=== PATIENT | female | born 1965 | race Caucasian/White ===

== ENCOUNTER 2021-08-23 11:31 | Day surgery (SDC) | payer OTHER ==
[2021-08-19 16:11] LABS: Absolute Lymphocytes (CBC) 1.3 K/uL (0.7-4.9); Basophils % 1.2 % (0-1.3); Hematocrit 39.5 % (36.0-45.0); Lymphocytes % 25.8 % (15.3-44.8); MPV 7.5 fL (7.6-11.3); RBC Red Blood Cell Count 4.23 M/uL (3.86-4.86)
[2021-08-19 16:17] LABS: Protime INR 1.05
[2021-08-19 16:24] LABS: Potassium 3.6 mmol/L (3.5-5.1)
--- NOTE | 2021-08-19 16:40 | RAD REPORT ---
EXAM DESCRIPTION: Mic Dubose And Gabo (2 Views)08/19/2021 4:24 pm CLINICAL HISTORY: Cough COMPARISON: 2019 FINDINGS: Mild prominence of the right suprahilar region without obvious change from the prior CAT scan Otherwise lungs appear clear of acute infiltrate. Heart is normal size
--- NOTE | 2021-08-20 10:42 | EKG ---
Test Date: 2021-08-19 Test Time: 14:42:30 Ingot Stripper: VIKTORIA MEASUREMENT RESULTS: Intervals: Rate: 91 [place]: 148 QRSD: 76 QT: 374 QTc: 460 [place]: P: 34 [place]: 148 QRS: 93 T: 64 INTERPRETIVE STATEMENTS: Normal sinus rhythm Rightward axis Low voltage QRS Borderline ECG Compared to ECG 06/01/2015 15:46:19 Right-axis deviation now present Myocardial infarct finding no longer present Electronically Signed On 08-20-21 10:39:55 CDT by Kirit Riggins
[2021-08-23] MEDS ORDERED: HEPA 1000U/500MLS 2,000 UNIT/1,000 ML BAG IV ONE (13:15)
[2021-08-23] MEDS ORDERED: MIDAZOLAM HCL 2 MG/2 ML INJ ONE (13:15)
[2021-08-23] MEDS ORDERED: FENTANYL CITR 100 MCG/2 ML ONE (13:16)
[2021-08-23] MEDS ORDERED: VERAPAMIL HCL 10 MG/4 ML VIAL IV ONE (13:16)
[2021-08-23] MEDS ORDERED: ATROPINE SULF 1 MG/10 ML SYR IV ONE (13:16)
[2021-08-23] MEDS ORDERED: HEPARIN 5000 UNIT/ML 1 ML VIAL ONE (13:16)
[2021-08-23] MEDS ORDERED: HEPA 1000U/500MLS 1,000 UNIT/500 ML BAG IV ONE ×2 (14:00→14:36)
[2021-08-23] MEDS ORDERED: NA CHLORIDE 0.9% 0 ML IV ONE (14:01)
--- NOTE | 2021-08-23 15:35 | OP ---
Date of Procedure: 08/23/2021 Surgeon: GOLDIE MURPHY Procedures Performed: 1.Selective coronary angiogram. 2.Left heart catheterization. 3.Right heart catheterization. 4.IVUS of left main and proximal LAD. Indication: Severe dyspnea on exertion and unstable angina equivalent. Access: Right radial artery 6-Montenegrin closed with TR band. Then, right IJ 7-Montenegrin closed with manua l pressure. Complications: None. Bleeding: Less than 10 mL. Anesthesia: Total time of sedation was 50 minutes. Description Of Procedure: After risks, benefits, and alternatives were explained, the patient to the procedure and signed informed consent. The patient was brought to the cardiac catheterization labor atory, prepped and draped in the usual sterile fashion. Then, we accessed the right radial artery us ing pediatric micropuncture kit and placed a 6-Montenegrin Slender sheath and then I obtained a right IJ a ccess using ultrasound guidance and micropuncture kit and placed a 7-Montenegrin sheath, and then we did t he right heart catheterization by passing a 7-Montenegrin passing a balloon-tipped Rembrandt-Stephani into the righ t atrium, recorded waveform and pressure and then RV waveform pressure recorded and then PA waveform pressure recorded and then wedge waveform pressure was recorded. Then, we obtained a thermodilution and cardiac output and then removed the Rembrandt and took a 5-Montenegrin Clayhole 4.0 catheter in the aortic emory t, engaged the left main and right coronary artery, took standard views and then gave systemic hepari n to assure ACT level above 250 and then exchanged the Clayhole catheter for left 3.5 6-Montenegrin guide int o the aortic root, engaged left main and used the side holes guide and took a short Run-Through wire into the LAD and took IVUS catheter to the left main and the LAD, and then removed the IVUS catheter and the wire, and took a final angiogram and then removed the guide and the sheath, and placed TR ban d with good hemostasis and placed the right IJ sheath with manual pressure and obtained good hemostas is. Findings: 1.Left main is very short with severe distal disease. The luminal area by IVUS is 4.1 sq mm. 2.LAD; severe proximal disease, 80% diffuse, noncalcified per IVUS. Luminal area is less than 4 and then the LAD is a small to moderate sized vessel with luminal irregularities throughout. 3.The left circumflex has ostial 99% stenosis and then mid 80% stenosis and then OM1 branch has prox imal 80% stenosis. 4.RCA; moderate size and has diffuse luminal irregularities. 5.LVEDP measured at 15 mmHg and the RA pressure was 15. RV pressure was 61/13 with mean of 21. PA pressure was 56/28 with a mean of 42. Pulmonary wedge pressure measured at 31. Cardiac output was 5 .7 L/minute. Conclusion: 1.Severe multivessel coronary artery disease including left main. 2.Elevated filling pressure. 3.Severe pulmonary hypertension, venous. Plan: Transfer for CABG evaluation. SR/MODL Voice ID: [id number] Report ID: [id number]
[2021-08-23 17:38] VITALS: TEMP 98.1
[2021-08-23 18:28] VITALS: BP 159/83; O2SAT 97
== END 2021-08-23 18:36 | disposition short-term general hospital (02) ==
LOC: CCL 11:31
PROVIDERS: ATTEND Internal Medicine
DX: I25.110 Atherosclerotic heart disease of native coronary artery with unstable angina pectoris (principal); I27.20 Pulmonary hypertension, unspecified; I11.0 Hypertensive heart disease with heart failure; I50.9 Heart failure, unspecified; E78.5 Hyperlipidemia, unspecified; E10.9 Type 1 diabetes mellitus without complications; Z79.4 Long term (current) use of insulin; Z20.822 Contact with and (suspected) exposure to COVID-19
CPT/HCPCS: 93005; 85025; 80048; 36415; 85610; 82947 ×3; 85347; 85730; 71046; 92978; 93460; U0003; C1893; J1644 ×4; J3010; J2370; J7060; J2250

== ENCOUNTER 2023-07-10 17:56 | Emergency (ER) | payer BC ==
--- OUTSIDE RECORDS SUMMARY | 2023-07-10 18:03 | XMS REPORT | Continuity of Care Document ---
:1965 Author Organization [facility] t Address [address] [place] [address] Care Team Providers Name Role Phone JOSE ANGEL LOPEZ Primary Care Physician Unavailable Jose Angel Lopez Attending Clinician Unavailable NORMAN LINCOLN Attending Clinician Unavailable WANDY POTTS Attending Clinician Unavailable Wandy Potts PA-C Attending Clinician Unknown, Attending Attending Clinician Unavailable MACY VALENTIN Attending Clinician Unavailable Macy Garber Attending Clinician Anai Baird MD Attending Clinician CALLIE COHEN Attending Clinician Unavailable Callie Barclay Attending Clinician Diane Schaeffer RN Attending Clinician Unavailable ANAI BAIRD Attending Clinician Unavailable SARMAD LINTON Attending Clinician Unavailable Sarmad Velasquez Attending Clinician Doctor Unassigned, [place] Attending Clinician Unavailable Only, Ang Db Test Attending Clinician Unavailable BRENDEN PORTILLO Attending Clinician Unavailable SONALI COOK Attending Clinician Unavailable NORMAN LINCOLN Admitting Clinician Unavailable AMANDA MARTIN Admitting Clinician Unavailable Payers Payer Name Policy Type Policy Number Effective Date Expiration Date Brooks jones AETNA SELECT [id number] 2020 [place] ACCESS 00:00:00 [place] [place] [id number] 2021 00:00:00 Blue Cross 6 [id number] [facility] Blue [facility] Blue Cross 6 [id number] [facility] t Blue [facility] AETNA 53 [id number] 2006 [facility]00 [facility] AETNA 53 [id number] 2006 [facility] 00[facility]00 [facility] AETNA 53 [id number] 2006 [facility]00 [facility] AETNA 53 [id number] [facility] AETNA C1 [id number] [facility] Problems Condition Condition Condition Status Onset Resolution Last Treating Co mments Source Name Details Category Date Date Treatment Clinician Date CAD CAD Disease Active 2020-[address] ([facility]onary (coronary 0-04 Luke s artery artery 00:00: Medical disease) disease) 00 Center Cellulitis Cellulitis Disease Active U nivers and and 6-24 ity of abscess [place] leg, leg, 00 Medical except except Branch foot foot Back pain Back pain Disease Active Uni vers 8-14 ity of 00:00: [place] 00 Medical Branch Hip joint Hip joint Disease Active Uni vers pain pain 8-14 ity of 00:00: [place] [address] Medical Branch 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 disorder Medical without Center prior episode [id number] Hyperlipid Problem Com mon emia, Spirit unspecifie - [facility] d [facility] hyperlipid [facility] emia type Medical Center [id number] Insulin Problem Commo n pump Spirit status - CHI [facility] Essential Essential Problem Com mon hypertensi (primary) Spi rit on hypertensi - CHI on [facility] [id number] retirement Problem Com mon (current) Spirit use of - CHI insulin [facility] [id number] Type 1 Problem Common diabetes Spirit mellitus - CHI with diabetic [facility] chronic Medical kidney Center disease [id number] Uncontroll Problem Co mmon ed type 1 Spirit diabetes - CHI mellitus with [facility] hyperglyce Medica l [facility] [id number] Seasonal Problem Commo n allergic Spirit rhinitis - CHI due to [facility] [id number] CHAN Problem Common (dyspnea Spirit on - CHI exertion) [facility] [id number] [place] Problem Common (obstructi Spirit ve sleep - CHI apnea) [facility] Retinopath Retinopath Disease Active U nivers y y ity [facility] Allergies, Adverse Reactions, Alerts Allergy Allergy Status Severity Reaction(s) Onset Inactive Treating Comm ents Source Name Type Date Date Clinician DIPHENHY Allergy Active Other [facility] DRAMINE 9-14 [facility] Center LISINOPR Allergy Active Other [facility] [place] 9[facility]14 [facility] Center Diphenhy Drug Active Other (See [facility] dramine Allergy Comments) 9-14 [facility] Medical 00 Center Lisinopr Drug Active Other (See [facility] il Allergy Comments) 9-14 [facility] 00:[facility]: Medical 00 Center NO KNOWN Drug Active Univers ALLERGIE Class ity of S [facility] diphenhy diphenhy Active Unknown Commo n dramine dramine Spirit - CHI [facility] Social History Social Habit Start Date Stop Date Quantity Comments Source Gender identity Universit y of [facility] Sexual orientation Univer sity [facility] History SDOH [facility] kes Alcohol Std Drinks Medica [facility] History SDOH [facility] Alcohol Binge Medical Cora ter Exposure to 2023-01-07 2023-01-17 Not sure University of SARS-CoV-2 (event) 00:00:00 11:32:00 [facility] History of Social 2023-01-17 2023-01-17 Univers ity of function 00:00:00 00:00:00 [facility] Alcohol intake 2021-08-24 2021-08-24 Ex-drinker TWAN Santos es 00:00:00 00:00:00 (finding) [facility] Tobacco use and 2021-08-23 2021-08-23 Smokeless TWAN Thompson kes exposure 00:00:00 00:00:00 tobacco non-user [facility] History SDOH 2021-08-23 2021-08-[address] [place] Alcohol Frequency 00:00:00 00:00:00 [facility] History of tobacco 1989-05-19 Cigarette Smoker University of use 00:00:00 [facility] Sex [birth year] TWAN Fernandze 00:00:00 00:00:00 [facility] Smoking Status Start Date Stop Date Source Ex-smoker 2022-12-18 00:00:00 2022-12-18 00:00:00 Universi ty [facility] Never Smoker [facility] Medications Ordered Filled Start Stop Current Ordering Indication Dosage Frequency Signature Comments Components Source Medication Medication Date Date Medication? Clinician (SIG) Name Name lucghada Yes [id number] 4[drp] Place 4 Univers in-dexameth 7 [id number] Drops in ity of asone 00:00: left ear [place] 0.3-0.1 % 00 in the Medical otic drops morning Branch and 4 Drops in the evening. dexamethaso 2022- No [id number] 10mg U nivers ne 5-30 05-30 ity of (DECADRON) 16:15: 16:20 [place] injection 00 :00 Medical 10 mg Branch diphenhydrA 2022- No [id number] 25mg U nivers MINE 5-30 05-30 ity of (BENADRYL) 16:15: 16:16 [place] capsule 25 00 :09 Medical mg Branch dexamethaso 2022- No [id number] 10mg 10 mg, Univers ne 5-30 05-30 Intramuscu ity of (DECADRON) 16:15: 16:20 lar, ONCE, [place] injection 00 :00 1 dose, On Medi edilberto 10 mg Tue Branch 04/18/23 at 1115, Routine Venlafaxine Yes 1{tbl} Take 1 Un edita 225 mg TR24 5-30 tablet by ity of 10:54: mouth [place] 14 daily. Medical Branch insulin Yes inject Univers lispro 5-30 under the ity of protamine-i 10:54: skin. [place] nsulin 14 Medical lispro 100 Branch unit/mL (50-50) injection Venlafaxine Yes 1{tbl} Take 1 Un edita 225 mg TR24 5-30 tablet by ity of 10:54: mouth [place] 14 daily. Medical Branch insulin Yes inject Univers lispro 5-30 under the ity of protamine-i 10:54: skin. [place] nsulin 14 Medical lispro 100 Branch unit/mL (50-50) injection ofloxacin 2022- Yes [id number] 5[drp] Place 5 Univers 0.3 % otic 5-30 06-07 Drops in ity of drops 00:00: 04:59 left ear [place] 00 :00 in the Medical morning Branch and 5 Drops in the evening. Do all this for 7 days. cephALEXin 2022- Yes [id number] 500mg Take 1 Univers 500 mg 5-30 06-05 capsule by ity of capsule 00:00: 04:59 mouth 4 [place] 00 :00 (four) Medical times Branch daily for 5 days. amoxicillin 2022- No [id number] 1{tbl} Take 1 Univers -clavulanat 2-28 03-11 tablet by it y of e 00:00: 05:59 mouth in [place] (AUGMENTIN) 00 :00 the Medical 875-125 mg morning Branch per tablet and 1 tablet in the evening. Do all this for 10 days. amoxicillin 2022- No [id number] 1{tbl} Take 1 Univers -clavulanat 2-28 03-11 tablet by it y of e 00:00: 05:59 mouth in [place] (AUGMENTIN) 00 :00 the Medical 875-125 mg morning Branch per tablet and 1 tablet in the evening. Do all this for 10 days. Venlafaxine Yes 1{tbl} Take 1 Un edita 225 mg TR24 1-29 tablet by ity of 13:05: mouth [place] 12 daily. Medical Branch insulin 2023-0 Yes inject Univers lispro 1-29 under the ity of protamine-i 13:05: skin. [place] nsulin 12 Medical lispro 100 Branch unit/mL (50-50) injection Venlafaxine 0 Yes 1{tbl} Take 1 Un edita 225 mg TR24 1-29 tablet by ity of 13:05: mouth [place] 12 daily. Medical Branch insulin Yes inject Univers lispro 1-29 under the ity of protamine-i 13:05: skin. [place] nsulin 12 Medical lispro 100 Branch unit/mL (50-50) injection Venlafaxine 0 Yes 1{tbl} Take 1 Un edita 225 mg TR24 1-29 tablet by ity of 13:05: mouth [place] 12 daily. [facility] Branch insulin Yes inject Univers lispro 1-29 under the ity of protamine-i 13:05: skin. [facility] 12 Medical lispro 100 Branch unit/mL (50-50) injection Venlafaxine Yes 1{tbl} Take 1 Un edita 225 mg TR24 1-29 tablet by ity of 13:05: mouth [place] 12 daily. [facility] Branch insulin Yes inject Univers lispro 1-29 under the ity of protamine-i [facility]:05: [facility] Branch unit/mL (50-50) injection Venlafaxine Yes 1{tbl} Take 1 Un edita 225 mg TR24 1-29 tablet by ity of 13:05: mouth [place] 12 daily. [facility] Branch insulin Yes inject Univers lispro 1-29 under the ity of protamine-i 13:05: [facility]. [facility] [place] [facility] lispro 100 Branch unit/mL (50-50) injection Venlafaxine 0 Yes 1{tbl} Take 1 Un edita 225 mg TR24 1-29 tablet by ity of 13:05: mouth [place] 12 daily. Medical Branch insulin 0 Yes inject Univers lispro 1-29 under the ity of protamine-i 13:05: [facility]. [facility] [place] [facility] lispro 100 Branch unit/mL (50-50) injection Venlafaxine 2022-0 Yes 1{tbl} Take 1 Un edita 225 mg TR24 1-29 tablet by ity of 13:05: mouth [place] 12 daily. Medical Branch insulin 2022-0 Yes inject Univers lispro 1-29 under the ity of protamine-i 13:05: skin. [place] nsulin 12 Medical lispro 100 Branch unit/mL (50-50) injection benzonatate 2022-0 Yes [id number] 200mg Take 2 Univers 100 mg 1-29 capsules ity of capsule 00:00: by mouth [place] 00 every 8 Medical (eight) Branch hours as needed for Cough. cetirizine 2022-0 Yes [id number] 10mg Take 1 U nivers (ZYRTEC) 10 1-29 tablet by ity of mg tablet 00:00: [place] 00 the Medical morning. Branch benzonatate 2022-0 Yes [id number] 200mg Take 2 Univers 100 mg 1-29 capsules ity of capsule 00:00: by mouth [place] 00 every 8 Medical (eight) Branch hours as needed for Cough. cetirizine 2022-0 Yes [id number] 10mg Take 1 U nivers (ZYRTEC) 10 1-29 tablet by ity of mg tablet 00:00: [place] 00 the Medical morning. Branch benzonatate 2022-0 Yes [id number] 200mg Take 2 Univers 100 mg 1-29 capsules ity of capsule 00:00: by mouth [place] 00 every 8 Medical (eight) Branch hours as needed for Cough. cetirizine 2022-0 Yes [id number] 10mg Take 1 U nivers (ZYRTEC) 10 1-29 tablet by ity of mg tablet 00:00: [place] 00 the Medical morning. Branch benzonatate 2022-0 Yes [id number] 200mg Take 2 Univers 100 mg 1-29 capsules ity of capsule 00:00: by mouth [place] 00 every 8 Medical (eight) Branch hours as needed for Cough. cetirizine 3-0 Yes [id number] 10mg Take 1 U nivers (ZYRTEC) 10 1-29 tablet by ity of mg tablet 00:00: [place] 00 the Medical morning. Branch benzonatate 3-0 Yes [id number] 200mg Take 2 Univers 100 mg 1-29 capsules ity of capsule 00:00: by mouth [place] 00 every 8 Medical (eight) Branch hours as needed for Cough. cetirizine 2023-0 Yes [id number] 10mg Take 1 U nivers (ZYRTEC) 10 1-29 tablet by ity of mg tablet 00:00: [place] 00 the Medical morning. Branch benzonatate 2023-0 Yes [id number] 200mg Take 2 Univers 100 mg 1-29 capsules ity of capsule 00:00: by mouth [place] 00 every 8 Medical (eight) Branch hours as needed for Cough. cetirizine 2023-0 Yes [id number] 10mg Take 1 U nivers (ZYRTEC) 10 1-29 tablet by ity of mg tablet 00:00: [place] 00 the Medical morning. Branch benzonatate 2023-0 Yes [id number] 200mg Take 2 Univers 100 mg 1-29 capsules ity of capsule 00:00: by mouth [place] 00 every 8 Medical (eight) Branch hours as needed for Cough. cetirizine 3-0 Yes [id number] 10mg Take 1 U nivers (ZYRTEC) 10 1-29 tablet by ity of mg tablet 00:00: [place] 00 the Medical morning. Branch benzonatate 3-0 Yes [id number] 200mg Take 2 Univers 100 mg 1-29 capsules ity of capsule 00:00: by mouth [place] 00 every 8 Medical (eight) Branch hours as needed for Cough. cetirizine 3-0 Yes [id number] 10mg Take 1 U nivers (ZYRTEC) 10 1-29 tablet by ity of mg tablet 00:00: [place] 00 the Medical morning. Branch benzonatate 2023-0 Yes [id number] 200mg Take 2 Univers 100 mg 1-29 capsules ity of capsule 00:00: by mouth [place] 00 every 8 Medical (eight) Branch hours as needed for Cough. cetirizine 2023-0 Yes [id number] 10mg Take 1 U nivers (ZYRTEC) 10 1-29 tablet by ity of mg tablet 00:00: [place] 00 the Medical morning. Branch gabapentin 2023-0 Yes 100mg Take 100 Un edita 100 mg 1-23 mg by ity of capsule 00:00: mouth in [place] 00 the Medical morning Branch and 100 mg in the evening. aspirin 81 2023-0 Yes 81mg Take 81 mg U nivers mg EC 1-23 by mouth ity of tablet 00:00: in the [place] 00 morning. Medical Branch gabapentin 2023-0 Yes 100mg Take 100 Un edita 100 mg 1-23 mg by ity of capsule 00:00: mouth in [place] 00 the Medical morning Branch and 100 mg in the evening. aspirin 81 2023-0 Yes 81mg Take 81 mg U nivers mg EC 1-23 by mouth ity of tablet 00:00: in the [place] 00 morning. Medical Branch gabapentin 2023-0 Yes 100mg Take 100 Un edita 100 mg 1-23 mg by ity of capsule 00:00: mouth in [place] 00 the Medical morning Branch and 100 mg in the evening. aspirin 81 2023-0 Yes 81mg Take 81 mg U nivers mg EC 1-23 by mouth ity of tablet 00:00: in the [place] [address] morning. Medical Branch gabapentin 2023-0 Yes 100mg Take 100 Un edita 100 mg 1-23 mg by ity of capsule 00:00: mouth in [place] 00 the Medical morning Branch and 100 mg in the evening. aspirin 81 2023-0 Yes 81mg Take 81 mg U nivers mg EC 1-23 by mouth ity of tablet 00:00: in the [place] [address] morning. Medical Branch gabapentin 2023-0 Yes 100mg Take 100 Un edita 100 mg 1-23 mg by ity of capsule 00:00: mouth in [place] 00 the Medical morning Branch and 100 mg in the evening. aspirin 81 2023-0 Yes 81mg Take 81 mg U nivers mg EC 1-23 by mouth ity of tablet 00:00: in the [place] [address] morning. Medical Branch gabapentin 2023-0 Yes 100mg Take 100 Un edita 100 mg 1-23 mg by ity of capsule 00:00: mouth in [place] 00 the Medical morning Branch and 100 mg in the evening. aspirin 81 2023-0 Yes 81mg Take 81 mg U nivers mg EC 1-23 by mouth ity of tablet 00:00: in the [place] [address] morning. Medical Branch gabapentin 2023-0 Yes 100mg Take 100 Un edita 100 mg 1-23 mg by ity of capsule 00:00: mouth in [place] 00 the Medical morning Branch and 100 mg in the evening. aspirin 81 2023-0 Yes 81mg Take 81 mg U nivers mg EC 1-23 by mouth ity of tablet 00:00: in the [place] 00 morning. Medical Branch gabapentin 2022-0 Yes 100mg Take 100 Un edita 100 mg 1-23 mg by ity of capsule 00:00: mouth in [place] 00 the Medical morning Branch and 100 mg in the evening. aspirin 81 2022-0 Yes 81mg Take 1 Unive rs mg EC 1-23 tablet by ity of tablet 00:00: mouth in [place] 00 the Medical morning. Branch gabapentin 2022-0 Yes 100mg Take 100 Un edita 100 mg 1-23 mg by ity of capsule 00:00: mouth in [place] 00 the Medical morning Branch and 100 mg in the evening. aspirin 81 2022-0 Yes 81mg Take 1 Unive rs mg EC 1-23 tablet by ity of tablet 00:00: mouth in [place] [address] the Medical morning. Branch montelukast 0 Yes Take by Uni vers sodium 9-07 mouth. ity of (SINGULAIR 13:58: [place] ORAL) Medical Branch ticagrelor Yes Take by Univ ers (BRILINTA 9-07 mouth. ity of ORAL) 13:58: [place] [address] Medical Branch furosemide 0 Yes Take by Univ ers (LASIX 9-07 mouth. ity of ORAL) 13:58: [place] [address] Medical Branch carvedilol Yes Take by Univ ers (COREG 9-07 mouth. ity of ORAL) 13:58: [place] [address] Medical Branch montelukast Yes Take by Uni vers sodium 9-07 mouth. ity of (SINGULAIR 13:58: [place] ORAL) Medical Branch ticagrelor Yes Take by Univ ers (BRILINTA 9-07 mouth. ity of ORAL) 13:58: [place] [address] Medical Branch furosemide 0 Yes Take by Univ ers (LASIX 9-07 mouth. ity of ORAL) 13:58: [place] [address] Medical Branch carvedilol 0 Yes Take by Univ ers (COREG 9-07 mouth. ity of ORAL) 13:58: [place] [address] Medical Branch montelukast 0 Yes Take by Un edita sodium 9-07 mouth. ity of (SINGULAIR 13:58: [place] ORAL) Medical Branch ticagrelor 0 Yes Take by Univ ers (BRILINTA 9-07 mouth. ity of ORAL) 13:58: [address] Branch furosemide 0 Yes Take by Univ ers (LASIX 9-07 mouth. ity of ORAL) 13:58: [address] Branch carvedilol 0 Yes Take by Univ ers (COREG 9-07 mouth. ity of ORAL) 13:58: [address] montelukast 0 Yes Take by Uni vers sodium 9-07 mouth. ity of (SINGULAIR 13:58: [place] ORAL) [address] [place] [address] Branch ticagrelor 0 Yes Take by Univ ers (BRILINTA 9-07 mouth. ity of ORAL) 13:58: [address] Branch furosemide 0 Yes Take by Univ ers (LASIX 9-07 mouth. ity of ORAL) 13:58: [address] carvedilol Yes Take by Univ ers (COREG 9-07 mouth. ity of ORAL) 13:58: [address] montelukast 0 Yes Take by Uni vers sodium 9-07 mouth. ity of (SINGULAIR 13:58: [place] ORAL) [address] [place] [address] Branch ticagrelor Yes Take by Univ ers (BRILINTA 9-07 mouth. ity of ORAL) 13:58: [address] furosemide 0 Yes Take by Univ ers (LASIX 9-07 mouth. ity of ORAL) 13:58: [address] carvedilol Yes Take by Univ ers (COREG 9-07 mouth. ity of ORAL) 13:58: [address] montelukast 0 Yes Take by Uni vers sodium 9-07 mouth. ity of (SINGULAIR 13:58: [place] ORAL) [address] [place] [address] Branch ticagrelor 0 Yes Take by Univ ers (BRILINTA 9-07 mouth. ity of ORAL) 13:58: [address] furosemide 0 Yes Take by Univ ers (LASIX 9-07 mouth. ity of ORAL) 13:58: [address] carvedilol 0 Yes Take by Univ ers (COREG 9-07 mouth. ity of ORAL) 13:58: [address] montelukast 0 Yes Take by Uni vers sodium 9-07 mouth. ity of (SINGULAIR 13:58: [place] ORAL) Medical Branch ticagrelor 0 Yes Take by Univ ers (BRILINTA 9-07 mouth. ity of ORAL) 13:58: [place] [address] Medical Branch furosemide 0 Yes Take by Univ ers (LASIX 9-07 mouth. ity of ORAL) 13:58: [address] Branch carvedilol 0 Yes Take by Univ ers (COREG 9-07 mouth. ity of ORAL) 13:58: [address] Branch montelukast 0 Yes Take by Uni vers sodium 9-07 mouth. ity of (SINGULAIR 13:58: [place] ORAL) Medical Branch ticagrelor 0 Yes Take by Univ ers (BRILINTA 9-07 mouth. ity of ORAL) 13:58: [address] Branch furosemide 0 Yes Take by Univ ers (LASIX 9-07 mouth. ity of ORAL) 13:58: [address] Branch carvedilol 0 Yes Take by Univ ers (COREG 9-07 mouth. ity of ORAL) 13:58: [address] Branch montelukast 0 Yes Take by Uni vers sodium 9-07 mouth. ity of (SINGULAIR 13:58: [place] ORAL) Medical Branch ticagrelor 0 Yes Take by Univ ers (BRILINTA 9-07 mouth. ity of ORAL) 13:58: [address] Branch furosemide 0 Yes Take by Univ ers (LASIX 9-07 mouth. ity of ORAL) 13:58: [place] [address] Medical Branch carvedilol 0 Yes Take by Univ ers (COREG 9-07 mouth. ity of ORAL) 13:58: [address] Branch montelukast 0 Yes Take by Uni vers sodium 9-07 mouth. ity of (SINGULAIR 13:58: [place] ORAL) Medical Branch ticagrelor 0 Yes Take by Univ ers (BRILINTA 9-07 mouth. ity of ORAL) 13:58: [address] Branch furosemide 0 Yes Take by Univ ers (LASIX 9-07 mouth. ity of ORAL) 13:58: [address] Branch carvedilol 2022-[address] [facility] ers (COREG 07-27 mouth. ity of ORAL) 13:58: [place] 45 Medical Branch Nitrofurant 2021- No [id number] 100mg Take 1 Univers oin&Nit. 07-27- capsule by ity of Macrocryst 00:00: 04:59 [place] (MACROBID) 00 :00 the Medical 100 mg morning Branch capsule and 1 capsule in the evening. Take with meals. Do all this for 5 days. Glucagon Glucagon 2020-11- No Glucagon Emergency 1 Emergency 1 2-15 06-13 Emergency MG MG 00:00: 00:00 1 MG 00 :00 Glucagon Glucagon 2020-11- No Glucagon Emergency 1 Emergency 1 2-15 06-13 Emergency MG MG 00:00: 00:00 1 MG 00 :00 Glucagon Glucagon 2020-11- No Glucagon Emergency 1 Emergency 1 2-15 06-13 Emergency MG MG 00:00: 00:00 1 MG 00 :00 nitroglycer 2020-11 Yes TAKE [address] in 1-30 TABLET [facility] (NITROSTAT) 00:00: UDER THE Ia dical 0.4 MG SL 00 TONGUE Center tablet EVERY 5 MIN NEEDED FOR CHEST PAIN NO MORE THAN 3 DOSES IN 15MIN CALL 911 IF PAIN UNRELEVED 5 MIN AFTER 1ST DOSE. losartan 2020-11 Yes TAKE [address] (COZAAR) 25 1-10 TABLET BY Jose Luis es MG tablet 00:00: MOUTH Medical 00 EVERY DAY Center carvediloL 2020-11 Yes 12.5mg Take 12.[address] (COREG) 0-07 mg by [facility] 12.5 MG 09:56: mouth 2 Medical tablet 15 (two) Center times daily with breakfast and dinner. insulin 2020-[address] [facility] lispro 0-07 subcutaneo [facility] protamine-i 09:56: usly Medica l nsulin 15 continuous Center lispro . (HumaLOG 50-50) 100 unit/mL (50-50) InPn furosemide 2020-11 Yes 40mg QD Take [address] (LASIX) 40 0-07 by mouth [facility] MG tablet 09:56: daily. Medica l 15 Center venlafaxine 2020-11 Yes 225mg QD Take [address] (EFFEXOR-XR 0-07 mg by [facility] ) 150 MG 24 09:56: mouth Medic al hr capsule 15 daily. [place] abemaciclib 2020- Yes 100mg QD Take [address] (Verzenio) 0-07 mg by [facility] 100 mg Tab 09:56: mouth Medica l 15 daily. [place] Dexcom G6 Dexcom G6 2020-0 No Dexcom G6 Transmitter Transmitter 3-24 Transmitte - - 00:00: r - 00 Dexcom G6 Dexcom G6 2020-0 No Dexcom G6 Sensor - Sensor - 3-24 Sensor - 00:00: 00 Dexcom G6 Dexcom G6 2020-0 No Dexcom G6 Transmitter Transmitter 3-24 Transmitte - - 00:00: r - 00 Dexcom G6 Dexcom G6 2020-0 No Dexcom G6 Sensor - Sensor - 3-24 Sensor - 00:00: 00 Dexcom G6 Dexcom G6 2020-0 No Dexcom G6 Transmitter Transmitter 3-24 Transmitte - - 00:00: r - 00 Dexcom G6 Dexcom G6 2020-0 No Dexcom G6 Sensor - Sensor - 3-24 Sensor - 00:00: 00 Dexcom G6 Dexcom G6 2020-0 No Dexcom G6 Transmitter Transmitter 3-24 Transmitte - - 00:00: r - 00 Dexcom G6 Dexcom G6 2020-0 No Dexcom G6 Sensor - Sensor - 3-24 Sensor - 00:00: 00 Dexcom G6 Dexcom G6 2020-0 No Dexcom G6 Sensor - Sensor - 3-24 Sensor - 00:00: 00 Dexcom G6 Dexcom G6 2020-0 No Dexcom G6 Transmitter Transmitter 3-24 Transmitte - - 00:00: r - 00 Dexcom G6 Dexcom G6 2020-0 No Dexcom G6 Sensor - Sensor - 3-24 Sensor - 00:00: 00 Dexcom G6 Dexcom G6 2020-0 No Dexcom G6 Transmitter Transmitter 3-24 Transmitte - - 00:00: r - 00 Dexcom G6 Dexcom G6 2020-0 No Dexcom G6 Transmitter Transmitter 3-24 Transmitte - - 00:00: r - 00 Dexcom G6 Dexcom G6 2020-0 No Dexcom G6 Sensor - Sensor - 3-24 Sensor - 00:00: 00 Dexcom G6 Dexcom G6 2020-0 No Dexcom G6 Sensor - Sensor - 3-24 Sensor - 00:00: 00 Dexcom G6 Dexcom G6 2020-0 No Dexcom G6 Transmitter Transmitter 3-24 Transmitte - - 00:00: r - 00 Dexcom G6 Dexcom G6 2020-0 No Dexcom G6 Sensor - Sensor - 3-24 Sensor - 00:00: 00 Dexcom G6 Dexcom G6 2020-0 No Dexcom G6 Transmitter Transmitter 3-24 Transmitte - - 00:00: r - 00 Dexcom G6 Dexcom G6 2020-0 No Dexcom G6 Transmitter Transmitter 3-24 Transmitte - - 00:00: r - 00 Dexcom G6 Dexcom G6 2020-0 No Dexcom G6 Sensor - Sensor - 3-24 Sensor - 00:00: 00 Dexcom G6 Dexcom G6 2020-0 No Dexcom G6 Sensor - Sensor - 3-24 Sensor - 00:00: 00 Dexcom G6 Dexcom G6 2020-0 No Dexcom G6 Transmitter Transmitter 3-24 Transmitte - - 00:00: r - 00 Dexcom G6 Dexcom G6 2020-0 No Dexcom G6 Transmitter Transmitter 3-24 Transmitte - - 00:00: r - 00 Dexcom G6 Dexcom G6 2020-0 No Dexcom G6 Sensor - Sensor - 3-24 Sensor - 00:00: 00 Humalog Humalog 2020-0 Yes Jose Angel 110 units C ommon 3-03 [facility] 00:[facility]: - [facility] 00 [facility] Valsartan Valsartan 2020-0 Yes Jose Angel 1 tablet Common 12-12 [facility] 00:00: - [facility] 00 [facility] Valsartan Valsartan 2020-0 No 1{table QD Valsartan 80 MG 80 MG 1-23 t} 80 MG 00:00: 00 Valsartan Valsartan 2020-0 No 1{table QD Valsartan 80 MG 80 MG 1-23 t} 80 MG 00:00: 00 Valsartan Valsartan 2020-0 No 1{table QD Valsartan 80 MG 80 MG 1-23 t} 80 MG 00:00: 00 Valsartan Valsartan 2020-0 No 1{table QD Valsartan 80 MG 80 MG 1-23 t} 80 MG 00:00: 00 Valsartan Valsartan 2020-0 No 1{table QD Valsartan 80 MG 80 MG 1-23 t} 80 MG 00:00: 00 insulin 2015-0 Yes For use in [facility] ers lispro, 4-02 insulin ity of human, 00:00: pump, up [place] (HUMALOG) 00 to 100 Medical 100 unit/mL units Branch injection daily. insulin 2015-0 Yes For use in [facility] ers lispro, 4-02 insulin ity of human, 00:00: pump, up [place] (HUMALOG) 00 to 100 Medical 100 unit/mL units Branch injection daily. insulin 2015-0 Yes For use in [facility] ers lispro, 4- insulin ity of human, 00:00: pump, up [place] (HUMALOG) 00 to 100 Medical 100 unit/mL units Branch injection daily. insulin 2015-0 Yes For use in [facility] ers lispro, 4- insulin ity of human, 00:00: pump, up [place] (HUMALOG) 00 to 100 Medical 100 unit/mL units Branch injection daily. insulin 2014-0 Yes For use in [facility] ers lispro, 4- insulin ity of human, 00:00: pump, up [place] (HUMALOG) 00 to 100 Medical 100 unit/mL units Branch injection daily. insulin 2015-0 Yes For use in [facility] ers lispro, 4- insulin ity of human, 00:00: pump, up [place] (HUMALOG) 00 to 100 Medical 100 unit/mL units Branch injection daily. insulin 2015-0 Yes For use in [facility] ers lispro, 4- insulin ity of human, 00:00: pump, up [place] (HUMALOG) 00 to 100 Medical 100 unit/mL units Branch injection daily. insulin 2015-0 Yes For use in [facility] ers lispro, 4-02 insulin ity of human, 00:00: pump, up [place] (HUMALOG) 00 to 100 Medical 100 unit/mL units Branch injection daily. insulin 2015-0 Yes For use in [facility] ers lispro, 4-02 insulin ity of human, 00:00: pump, up [place] (HUMALOG) 00 to 100 Medical 100 unit/mL units Branch injection daily. insulin 2015-0 Yes For use in [facility] ers lispro, 4-02 insulin ity of human, 00:00: pump, up [place] (HUMALOG) 00 to 100 Medical 100 unit/mL units Branch injection daily. insulin 2015-0 Yes For use in [facility] ers lispro, 4-02 insulin ity of human, 00:00: pump, up [place] (HUMALOG) 00 to 100 Medical 100 unit/mL units Branch injection daily. insulin Yes For use in [facility] ers lispro, 4- insulin ity of human, 00:00: pump, up [place] (HUMALOG) 00 to 100 Medical 100 unit/mL units Branch injection daily. blood sugar 2013-11 Yes Qid Use as [facility] diagnostic 1-24 directed, ity of (ONE TOUCH 00:00: DX:250.51 [place] VERIO) 00 [facility] blood sugar 2013-11 Yes Qid Use as Univers diagnostic 1-24 directed, ity of (ONE TOUCH 00:00: DX:250.51 [place] VERIO) 00 [facility] blood sugar 2013-11 Yes Qid Use as [facility] diagnostic 1-24 directed, ity of (ONE TOUCH 00:00: DX:250.51 [place] VERIO) 00 [facility] blood sugar 2013-11 Yes Qid Use as Univers diagnostic 1-24 directed, ity of (ONE TOUCH 00:00: DX:250.51 [place] VERIO) 00 [facility] blood sugar 2013-11 Yes Qid Use as Univers diagnostic 1-24 directed, ity of (ONE TOUCH 00:00: DX:250.51 [place] VERIO) 00 [facility] blood sugar 2013-11 Yes Qid Use as Univers diagnostic 1-24 directed, ity of (ONE TOUCH 00:00: DX:250.51 [place] VERIO) 00 [facility] blood sugar 2013-11 Yes Qid Use as Univers diagnostic 1-24 directed, ity of (ONE TOUCH 00:00: DX:250.51 [place] VERIO) 00 [facility] blood sugar 2013-11 Yes Qid Use as Univers diagnostic 1-24 directed, ity of (ONE TOUCH 00:00: DX:250.51 [place] VERIO) 00 [facility] blood sugar 2013-11 Yes Qid Use as Univers diagnostic 1-24 directed, ity of (ONE TOUCH 00:00: DX:250.51 [place] VERIO) 00 [facility] blood sugar 2013-11 Yes Qid Use as Univers diagnostic 1-24 directed, ity of (ONE TOUCH 00:00: DX:250.51 [place] VERIO) 00 [facility] blood sugar 2013-11 Yes Qid Use as Univers diagnostic 1-24 directed, ity of (ONE TOUCH 00:00: DX:250.51 [place] VERIO) 00 Medical strip Branch blood sugar 2013- Yes Qid Use as Univers diagnostic 1-24 directed, ity of (ONE TOUCH 00:00: DX:250.51 [place] VERIO) 00 Medical strip Branch insulin 2014-0 Yes For use in Univ ers aspart 9-12 insulin ity of RAPID 00:00: pump, up [place] (NOVOLOG) 00 to 100 Medical 100 unit/mL units Branch injection daily. insulin 2014-0 Yes For use in Univ ers aspart 9-12 insulin ity of RAPID 00:00: pump, up [place] (NOVOLOG) 00 to 100 Medical 100 unit/mL units Branch injection daily. insulin 2014-0 Yes For use in Univ ers aspart 9-12 insulin ity of RAPID 00:00: pump, up [place] (NOVOLOG) 00 to 100 Medical 100 unit/mL units Branch injection daily. insulin 2014-0 Yes For use in Univ ers aspart 9-12 insulin ity of RAPID 00:00: pump, up [place] (NOVOLOG) 00 to 100 Medical 100 unit/mL units Branch injection daily. insulin 2014-0 Yes For use in Univ ers aspart 9-12 insulin ity of RAPID 00:00: pump, up [place] (NOVOLOG) 00 to 100 Medical 100 unit/mL units Branch injection daily. insulin 2014-0 Yes For use in Univ ers aspart 9-12 insulin ity of RAPID 00:00: pump, up [place] (NOVOLOG) 00 to 100 Medical 100 unit/mL units Branch injection daily. insulin 2014-0 Yes For use in Univ ers aspart 9-12 insulin ity of RAPID 00:00: pump, up [place] (NOVOLOG) 00 to 100 Medical 100 unit/mL units Branch injection daily. insulin 2014-0 Yes For use in Univ ers aspart 9-12 insulin ity of RAPID 00:00: pump, up [place] (NOVOLOG) 00 to 100 Medical 100 unit/mL units Branch injection daily. insulin 2014-0 Yes For use in Univ ers aspart 9-12 insulin ity of RAPID 00:00: pump, up [place] (NOVOLOG) 00 to 100 Medical 100 unit/mL units Branch injection daily. insulin 2014-0 Yes For use in Univ ers aspart 9-12 insulin ity of RAPID 00:00: pump, up [place] (NOVOLOG) 00 to 100 Medical 100 unit/mL units Branch injection daily. insulin 2014-0 Yes For use in Univ ers aspart 9-12 insulin ity of RAPID 00:00: pump, up [place] (NOVOLOG) 00 to 100 Medical 100 unit/mL units Branch injection daily. insulin 2014-0 Yes For use in Univ ers aspart 9-12 insulin ity of RAPID 00:00: pump, up [place] (NOVOLOG) 00 to 100 Medical 100 unit/mL units Branch injection daily. insulin 2014-0 Yes 5U inject 5 Univer s aspart 7-18 Units ity of RAPID 00:00: under the [place] (NOVOLOG) 00 skin 3 Medical 100 unit/mL (three) Branc h injection times daily before meals. insulin 2014-0 Yes 5U inject 5 Univer s aspart 7-18 Units ity of RAPID 00:00: under the [place] (NOVOLOG) 00 skin 3 Medical 100 unit/mL (three) Branc h injection times daily before meals. insulin 2014-0 Yes 5U inject 5 Univer s aspart 7-18 Units ity of RAPID 00:00: under the [place] (NOVOLOG) 00 skin 3 Medical 100 unit/mL (three) Branc h injection times daily before meals. insulin 2014-0 Yes 5U inject 5 Univer s aspart 7-18 Units ity of RAPID 00:00: under the [place] (NOVOLOG) 00 skin 3 Medical 100 unit/mL (three) Branc h injection times daily before meals. insulin 2014-0 Yes 5U inject 5 Univer s aspart 7-18 Units ity of RAPID 00:00: under the [place] (NOVOLOG) 00 skin 3 Medical 100 unit/mL (three) Branc h injection times daily before meals. insulin 2014-0 Yes 5U inject 5 Univer s aspart 7-18 Units ity of RAPID 00:00: under the [place] (NOVOLOG) 00 skin 3 Medical 100 unit/mL (three) Branc h injection times daily before meals. insulin 2014-0 Yes 5U inject 5 Univer s aspart 7-18 Units ity of RAPID 00:00: under the [place] (NOVOLOG) 00 skin 3 Medical 100 unit/mL (three) Branc h injection times daily before meals. insulin 2014-0 Yes 5U inject 5 Univer s aspart 7-18 Units ity of RAPID 00:00: under the [place] (NOVOLOG) 00 skin 3 Medical 100 unit/mL (three) Branc h injection times daily before meals. insulin 2013-0 Yes 5U inject 5 Univer s aspart 7-18 Units ity of RAPID 00:00: under the [place] (NOVOLOG) 00 skin 3 Medical 100 unit/mL (three) Branc h injection times daily before meals. insulin 2013-0 Yes 5U inject 5 Univer s aspart 7-18 Units ity of RAPID 00:00: under the [place] (NOVOLOG) 00 skin 3 Medical 100 unit/mL (three) Branc h injection times daily before meals. insulin 2013-0 Yes 5U inject 5 Univer s aspart 7-18 Units ity of RAPID 00:00: under the [place] (NOVOLOG) 00 skin 3 Medical 100 unit/mL (three) Branc h injection times daily before meals. insulin 2013-0 Yes 5U inject 5 Univer s aspart 7-18 Units ity of RAPID 00:00: under the [place] (NOVOLOG) 00 skin 3 Medical 100 unit/mL (three) Branc h injection times daily before meals. insulin 2013-0 Yes 20U inject 20 Unive rs glargine 6-23 Units ity of (LANTUS 00:00: under the [place] U-100) 100 00 skin at Medica l unit/mL bedtime. Branch injection insulin 2013-0 Yes 20U inject 20 Unive rs glargine 6-23 Units ity of (LANTUS 00:00: under the [place] U-100) 100 00 skin at Medica l unit/mL bedtime. Branch injection insulin 2013-0 Yes 20U inject 20 Unive rs glargine 6-23 Units ity of (LANTUS 00:00: under the [place] U-100) 100 00 skin at Medica l unit/mL bedtime. Branch injection insulin 2013-0 Yes 20U inject 20 Unive rs glargine 6-23 Units ity of (LANTUS 00:00: under the [place] U-100) 100 00 skin at Medica l unit/mL bedtime. Branch injection insulin 2013-0 Yes 20U inject 20 Unive rs glargine 6-23 Units ity of (LANTUS 00:00: under the [place] U-100) 100 00 skin at Medica l unit/mL bedtime. Branch injection insulin Yes 20U inject 20 Unive rs glargine 6-23 Units ity of (LANTUS 00:00: under the [place] U-100) 100 00 skin at Medica l unit/mL bedtime. Branch injection insulin Yes 20U inject 20 Unive rs glargine 6-23 Units ity of (LANTUS 00:00: under the [place] U-100) 100 00 skin at Medica l unit/mL bedtime. Branch injection insulin Yes 20U inject 20 Unive rs glargine 6-23 Units ity of (LANTUS 00:00: under the [place] U-100) 100 00 skin at Medica l unit/mL bedtime. Branch injection insulin Yes 20U inject 20 Unive rs glargine 6-23 Units ity of (LANTUS 00:00: under the [place] U-100) 100 00 skin at Medica l unit/mL bedtime. Branch injection insulin Yes 20U inject 20 Unive rs glargine 6-23 Units ity of (LANTUS 00:00: under the [place] U-100) 100 00 skin at Medica l unit/mL bedtime. Branch injection insulin Yes 20U inject 20 Unive rs glargine 6-23 Units ity of (LANTUS 00:00: under the [place] U-100) 100 00 skin at Medica l unit/mL bedtime. Branch injection insulin Yes 20U inject 20 Unive rs glargine 6-23 Units ity of (LANTUS 00:00: under the [place] U-100) 100 00 skin at Medica l unit/mL bedtime. Branch injection atorvastati Yes 20mg Take 1 Tab Univers n (LIPITOR) 4-25 by mouth ity of 20 mg 00:00: at [place] tablet 00 bedtime. Medical Start it Branch at every other day for a month, then increase to daily if it is tolerated. atorvastati Yes 20mg Take 1 Tab Univers n (LIPITOR) 4-25 by mouth ity of 20 mg 00:00: at [place] tablet 00 bedtime. Medical Start it Branch at every other day for a month, then increase to daily if it is tolerated. atorvastati Yes 20mg Take 1 Tab Univers n (LIPITOR) 4-25 by mouth ity of 20 mg 00:00: at [place] tablet 00 bedtime. Medical Start it Branch at every other day for a month, then increase to daily if it is tolerated. atorvastati Yes 20mg Take 1 Tab Univers n (LIPITOR) 4-25 by mouth ity of 20 mg 00:00: at [place] tablet 00 bedtime. Medical Start it Branch at every other day for a month, then increase to daily if it is tolerated. atorvastati Yes 20mg Take 1 Tab Univers n (LIPITOR) 4-25 by mouth ity of 20 mg 00:00: at [place] tablet 00 bedtime. Medical Start it Branch at every other day for a month, then increase to daily if it is tolerated. atorvastati Yes 20mg Take 1 Tab Univers n (LIPITOR) 4-25 by mouth ity of 20 mg 00:00: at [place] tablet 00 bedtime. Medical Start it Branch at every other day for a month, then increase to daily if it is tolerated. atorvastati Yes 20mg Take 1 Tab Univers n (LIPITOR) 4-25 by mouth ity of 20 mg 00:00: at [place] tablet 00 bedtime. Medical Start it Branch at every other day for a month, then increase to daily if it is tolerated. atorvastati Yes 20mg Take 1 Tab Univers n (LIPITOR) 4-25 by mouth ity of 20 mg 00:00: at [place] tablet 00 bedtime. Medical Start it Branch at every other day for a month, then increase to daily if it is tolerated. atorvastati Yes 20mg Take 1 Tab Univers n (LIPITOR) 4-25 by mouth ity of 20 mg 00:00: at [place] tablet 00 bedtime. Medical Start it Branch at every other day for a month, then increase to daily if it is tolerated. atorvastati Yes 20mg Take 1 Tab Univers n (LIPITOR) 4-25 by mouth ity of 20 mg 00:00: at [place] tablet 00 bedtime. Medical Start it Branch at every other day for a month, then increase to daily if it is tolerated. atorvastati Yes 20mg Take 1 Tab Univers n (LIPITOR) 4-25 by mouth ity of 20 mg 00:00: at [place] tablet 00 bedtime. Medical Start it Branch at every other day for a month, then increase to daily if it is tolerated. atorvastati 2014-0 Yes 20mg Take 1 Tab Univers n (LIPITOR) 4-25 by mouth ity of 20 mg 00:00: at [place] tablet 00 bedtime. Medical Start it Branch at every other day for a month, then increase to daily if it is tolerated. Blood-Gluco Yes Univer s se Meter 2-25 ity of (ONE TOUCH 00:00: [place] VERIO IQ) 00 Medical Kit Branch lancets Yes To be used Univ ers (ONE TOUCH 2-25 up to 6x ity o f DELICA) 33 00:00: daily [place] gauge Misc Medical Branch Blood-Gluco Yes Univer s se Meter 2-25 ity of (ONE TOUCH 00:00: [place] VERIO IQ) 00 Medical Kit Branch lancets Yes To be used Univ ers (ONE TOUCH 2-25 up to 6x ity o f DELICA) 33 00:00: daily [place] gauge Mis Medical Branch Blood-Gluco Yes Univer s se Meter 2-25 ity of (ONE TOUCH 00:00: [place] VERIO IQ) 00 Medical Kit Branch lancets Yes To be used Univ ers (ONE TOUCH 2-25 up to 6x ity o f DELICA) 33 00:00: daily [place] gauge Mis Medical Branch Blood-Gluco Yes Univer s se Meter 2-25 ity of (ONE TOUCH 00:00: [place] VERIO IQ) Medical Kit Branch Blood-Gluco Yes Univer s se Meter 2-25 ity of (ONE TOUCH 00:00: [place] VERIO IQ) 00 Medical Kit Branch lancets Yes To be used Univ ers (ONE TOUCH 2-25 up to 6x ity o f DELICA) 33 00:00: daily [place] gauge Misc Medical Branch lancets Yes To be used Univ ers (ONE TOUCH 2-25 up to 6x ity o f DELICA) 33 00:00: daily [place] gauge Misc Medical Branch Blood-Gluco Yes Univer s se Meter 2-25 ity of (ONE TOUCH 00:00: [place] VERIO IQ) 00 Medical Kit Branch lancets Yes To be used Univ ers (ONE TOUCH 2-25 up to 6x ity o f DELICA) 33 00:00: daily [place] gauge Mis Medical Branch Blood-Gluco Yes Univer s se Meter 2-25 ity of (ONE TOUCH 00:00: [place] VERIO IQ) Medical Kit Branch lancets Yes To be used Univ ers (ONE TOUCH 2-25 up to 6x ity o f DELICA) 33 00:00: daily [place] gauge Mis Medical Branch Blood-Gluco Yes Univer s se Meter 2-25 ity of (ONE TOUCH 00:00: [place] VERIO IQ) Medical Kit Branch lancets Yes To be used Univ ers (ONE TOUCH 2-25 up to 6x ity o f DELICA) 33 00:00: daily [place] gauge [facility] [place] [place] Medical Branch Blood-Gluco Yes Univer s se Meter 2-25 ity of (ONE TOUCH 00:00: [place] VERIO IQ) Medical Kit Branch Blood-Gluco Yes Univer s se Meter 2-25 ity of (ONE TOUCH 00:00: [place] VERIO IQ) 00 Medical Kit Branch lancets Yes To be used Univ ers (ONE TOUCH 2-25 up to 6x ity o f DELICA) 33 00:00: daily [place] gauge [facility] [place] [place] Medical Branch lancets Yes To be used Univ ers (ONE TOUCH 2-25 up to 6x ity o f DELICA) 33 00:00: daily [place] gauge [facility] [place] [place] Medical Branch Blood-Gluco Yes Univer s se Meter 2-25 ity of (ONE TOUCH 00:00: [place] VERIO IQ) Medical Kit Branch lancets Yes To be used Univ ers (ONE TOUCH 2-25 up to 6x ity o f DELICA) 33 00:00: daily [place] gauge Mis Medical Branch Blood-Gluco Yes Univer s se Meter 2-25 ity of (ONE TOUCH 00:00: [place] VERIO IQ) Medical Kit Branch lancets Yes To be used Univ ers (ONE TOUCH 2-25 up to 6x ity o f DELICA) 33 00:00: daily [place] gauge Misc 00 Medical Branch GLUCAGON 1 Yes use as Unive rs MG 8-14 directed ity of INJECTION 00:00: in case of [place] KIT 00 emergency Medical Branch GLUCAGON 1 Yes use as Unive rs MG 8-14 directed ity of INJECTION 00:00: in case of [place] KIT 00 emergency Medical Branch GLUCAGON 1 Yes use as Unive rs MG 8-14 directed ity of INJECTION 00:00: in case of [place] KIT 00 emergency Medical Branch GLUCAGON 1 Yes use as Unive rs MG 8-14 directed ity of INJECTION 00:00: in case of [place] KIT 00 emergency Medical Branch GLUCAGON 1 Yes use as Unive rs MG 8-14 directed ity of INJECTION 00:00: in case of [place] KIT 00 emergency Medical Branch GLUCAGON 1 Yes use as Unive rs MG 8-14 directed ity of INJECTION 00:00: in case of [place] KIT 00 emergency Medical Branch GLUCAGON 1 Yes use as Unive rs MG 8-14 directed ity of INJECTION 00:00: in case of [place] KIT 00 emergency Medical Branch GLUCAGON 1 Yes use as Unive rs MG 8-14 directed ity of INJECTION 00:00: in case of [place] KIT 00 emergency Medical Branch GLUCAGON 1 Yes use as Unive rs MG 8-14 directed ity of INJECTION 00:00: in case of [place] KIT 00 emergency Medical Branch GLUCAGON 1 Yes use as Unive rs MG 8-14 directed ity of INJECTION 00:00: in case of [place] KIT 00 emergency Medical Branch GLUCAGON 1 Yes use as Unive rs MG 8-14 directed ity of INJECTION 00:00: in case of [place] KIT 00 emergency Medical Branch GLUCAGON 1 Yes use as Unive rs MG 8-14 directed ity of INJECTION 00:00: in [place] of [place] KIT 00 emergency Medical Branch Fluticasone Fluticasone Yes Jose Angel 1 spray in Common Propionate Propionate [place] each Sp steve nostril - [facility] Ultram Ultram Yes Jose Angel 1 tablet Common [place] as needed [facility] - [facility] Ondansetron Ondansetron Yes [place] Angel TAKE 1 Common [place] TABLET BY Spirit MOUTH - [facility] EVERY 4 - [facility]USEA Center Verzenio Verzenio Yes Jose Angel 1 tablet Co mmon [place] [facility] - [facility] Venlafaxine Venlafaxine Yes Jose Angel 1 capsule Common HCl ER HCl ER [place] with food Spiri t - [facility] Vitamin D3 Vitamin D3 Yes Jose Angel TAKE ONE Common [place] CAPSULE BY Spirit MOUTH - [facility] EVERY WEEK [facility] Vitamin D3 Vitamin D3 No Vitamin D3 55782 UNIT [id number] UNIT 57892 UNIT HumaLOG 100 HumaLOG 100 No QD HumaLOG UNIT/ML UNIT/ML 100 UNIT/ML Furosemide Furosemide No 1{table QD Furosemide 40 MG 40 MG t} 40 MG Verzenio Verzenio No 1{table Verzenio 100 MG 100 MG t} 100 MG Ondansetron Ondansetron No Ondansetro 4 MG 4 MG n 4 MG Fluticasone Fluticasone No 1{spray BID Fluticason Propionate Propionate _in_eac e 50 MCG/ACT 50 MCG/ACT h_nostr Propionate il} 50 MCG/ACT Dexcom G6 Dexcom G6 No Dexcom G6 [employer] - Chin Strap Sewer - Chin Strap Sewer - Venlafaxine Venlafaxine No Venlafaxin HCl ER 225 HCl ER 225 e HCl ER MG MG 225 MG Ultram 50 Ultram 50 No 1{table TID Ultram 50 MG MG t_as_ne MG eded} Vitamin D3 Vitamin D3 No Vitamin D3 50880 UNIT 50253 UNIT 58493 UNIT HumaLOG 100 HumaLOG 100 No QD HumaLOG UNIT/ML UNIT/ML 100 UNIT/ML Furosemide Furosemide No 1{table QD Furosemide 40 MG 40 MG t} 40 MG Verzenio Verzenio No 1{table Verzenio 100 MG 100 MG t} 100 MG Ondansetron Ondansetron No Ondansetro 4 MG 4 MG n 4 MG Ondansetron Ondansetron No Ondansetro 4 MG 4 MG n 4 MG Verzenio Verzenio No 1{table Verzenio 100 MG 100 MG t} 100 MG Dexcom G6 Dexcom G6 No Dexcom G6 [employer]er - Chin Strap Sewer - Chin Strap Sewer - Vitamin D3 Vitamin D3 No Vitamin D3 47897 UNIT 99746 UNIT 32662 UNIT HumaLOG 100 HumaLOG 100 No QD HumaLOG UNIT/ML UNIT/ML 100 UNIT/ML Ultram 50 Ultram 50 No 1{table TID Ultram 50 MG MG t_as_ne MG eded} Venlafaxine Venlafaxine No Venlafaxin HCl ER 225 HCl ER 225 e HCl ER MG MG 225 MG Valsartan Valsartan No 1{table QD Valsartan 40 MG 40 MG t} 40 MG Furosemide Furosemide No 1{table QD Furosemide 40 MG 40 MG t} 40 MG Fluticasone Fluticasone No 1{spray BID Fluticason Propionate Propionate _in_eac e 50 MCG/ACT 50 MCG/ACT h_nostr Propionate il} 50 MCG/ACT Ondansetron Ondansetron No Ondansetro 4 MG 4 MG n 4 MG Verzenio Verzenio No 1{table Verzenio 100 MG 100 MG t} 100 MG Dexcom G6 Dexcom G6 No Dexcom G6 [employer] Sewer - Chin Strap Sewer - Chin Strap Sewer - Vitamin D3 Vitamin D3 No Vitamin D3 35344 UNIT 03438 UNIT 12878 UNIT HumaLOG 100 HumaLOG 100 No QD HumaLOG UNIT/ML UNIT/ML 100 UNIT/ML Ultram 50 Ultram 50 No 1{table TID Ultram 50 MG MG t_as_ne MG eded} Venlafaxine Venlafaxine No Venlafaxin HCl ER 225 HCl ER 225 e HCl ER MG MG 225 MG Valsartan Valsartan No 1{table QD Valsartan 40 MG 40 MG t} 40 MG Furosemide Furosemide No 1{table QD Furosemide 40 MG 40 MG t} 40 MG Fluticasone Fluticasone No 1{spray BID Fluticason Propionate Propionate _in_eac e 50 MCG/ACT 50 MCG/ACT h_nostr Propionate il} 50 MCG/ACT Furosemide Furosemide No 1{table QD Furosemide 40 MG 40 MG t} 40 MG Dexcom G6 Dexcom G6 No Dexcom G6 [employer]er - Chin Strap Sewer - [employer] Strap Sewer - Venlafaxine Venlafaxine No Venlafaxin HCl ER 225 HCl ER 225 e HCl ER MG MG 225 MG Vitamin D3 Vitamin D3 No Vitamin D3 23965 UNIT 77456 UNIT 58570 UNIT HumaLOG 100 HumaLOG 100 No HumaLOG UNIT/ML UNIT/ML 100 UNIT/ML Valsartan Valsartan No 1{table QD Valsartan 40 MG 40 MG t} 40 MG Verzenio Verzenio No 1{table Verzenio 100 MG 100 MG t} 100 MG Atorvastati Atorvastati No 1{table QD Atorvastat n Calcium n Calcium t} in Calcium 40 MG 40 MG 40 MG Fluticasone Fluticasone No 1{spray BID Fluticason Propionate Propionate _in_eac e 50 MCG/ACT 50 MCG/ACT h_nostr Propionate il} 50 MCG/ACT Furosemide Furosemide No 1{table QD Furosemide 40 MG 40 MG t} 40 MG Dexcom G6 Dexcom G6 No Dexcom G6 [employer]er - Chin Strap Sewer - Chin Strap Sewer - Venlafaxine Venlafaxine No Venlafaxin HCl ER 225 HCl ER 225 e HCl ER MG MG 225 MG Vitamin D3 Vitamin D3 No Vitamin D3 65509 UNIT 68806 UNIT 69299 UNIT HumaLOG 100 HumaLOG 100 No HumaLOG UNIT/ML UNIT/ML 100 UNIT/ML Valsartan Valsartan No 1{table QD Valsartan 40 MG 40 MG t} 40 MG Verzenio Verzenio No 1{table Verzenio 100 MG 100 MG t} 100 MG Atorvastati Atorvastati No 1{table QD Atorvastat n Calcium n Calcium t} in Calcium 40 MG 40 MG 40 MG Fluticasone Fluticasone No 1{spray BID Fluticason Propionate Propionate _in_eac e 50 MCG/ACT 50 MCG/ACT h_nostr Propionate il} 50 MCG/ACT Fluticasone Fluticasone No 1{spray BID Fluticason Propionate Propionate _in_eac e 50 MCG/ACT 50 MCG/ACT h_nostr Propionate il} 50 MCG/ACT HumaLOG 100 HumaLOG 100 No HumaLOG UNIT/ML UNIT/ML 100 UNIT/ML Vitamin D3 Vitamin D3 No Vitamin D3 52484 UNIT 66624 UNIT 20447 UNIT Verzenio Verzenio No 1{table Verzenio 100 MG 100 MG t} 100 MG Dexcom G6 Dexcom G6 No Dexcom G6 [employer] Strap Sewer - Chin Strap Sewer - Chin Strap Sewer - Furosemide Furosemide No 1{table QD Furosemide 40 MG 40 MG t} 40 MG Atorvastati Atorvastati No 1{table QD Atorvastat n Calcium n Calcium t} in Calcium 40 MG 40 MG 40 MG Valsartan Valsartan No Valsartan 40 MG 40 MG 40 MG Venlafaxine Venlafaxine No Venlafaxin HCl ER 225 HCl ER 225 e HCl ER MG MG 225 MG Furosemide Furosemide No 1{table QD Furosemide 40 MG 40 MG t} 40 MG Vitamin D3 Vitamin D3 No Vitamin D3 35252 UNIT 14836 UNIT 35004 UNIT Atorvastati Atorvastati No 1{table QD Atorvastat n Calcium n Calcium t} in Calcium 40 MG 40 MG 40 MG HumaLOG 100 HumaLOG 100 No HumaLOG UNIT/ML UNIT/ML 100 UNIT/ML Verzenio Verzenio No 1{table Verzenio 100 MG 100 MG t} 100 MG Fluticasone Fluticasone No 1{spray BID Fluticason Propionate Propionate _in_eac e 50 MCG/ACT 50 MCG/ACT h_nostr Propionate il} 50 MCG/ACT Venlafaxine Venlafaxine No Venlafaxin HCl ER 225 HCl ER 225 e HCl ER MG MG 225 MG Valsartan Valsartan No Valsartan 40 MG 40 MG 40 MG Dexcom G6 Dexcom G6 No Dexcom G6 Chin Strap Sewer - Chin Strap Sewer - Chin Strap Sewer - Furosemide Furosemide No 1{table QD Furosemide 40 MG 40 MG t} 40 MG Vitamin D3 Vitamin D3 No Vitamin D3 70916 UNIT 79247 UNIT 67337 UNIT Atorvastati Atorvastati No 1{table QD Atorvastat n Calcium n Calcium t} in Calcium 40 MG 40 MG 40 MG HumaLOG 100 HumaLOG 100 No HumaLOG UNIT/ML UNIT/ML 100 UNIT/ML Verzenio Verzenio No 1{table Verzenio 100 MG 100 MG t} 100 MG Fluticasone Fluticasone No 1{spray BID Fluticason Propionate Propionate _in_eac e 50 MCG/ACT 50 MCG/ACT h_nostr Propionate il} 50 MCG/ACT Venlafaxine Venlafaxine No Venlafaxin HCl ER 225 HCl ER 225 e HCl ER MG MG 225 MG Valsartan Valsartan No Valsartan 40 MG 40 MG 40 MG Dexcom G6 Dexcom G6 No Dexcom G6 Chin Strap Sewer - Chin Strap Sewer - Chin Strap Sewer - Fluticasone Fluticasone No 1{spray BID Fluticason Propionate Propionate _in_eac e 50 MCG/ACT 50 MCG/ACT h_nostr Propionate il} 50 MCG/ACT Ondansetron Ondansetron No Ondansetro 4 MG 4 MG n 4 MG Vitamin D3 Vitamin D3 No Vitamin D3 73103 UNIT 09161 UNIT 94753 UNIT Venlafaxine Venlafaxine No 1{capsu QD Venlafaxin HCl ER 225 HCl ER 225 le_with e HCl ER MG MG _food} 225 MG Dexcom G6 Dexcom G6 No Dexcom G6 Chin Strap Sewer - Chin Strap Sewer - Chin Strap Sewer - Ultram 50 Ultram 50 No 1{table TID Ultram 50 MG MG t_as_ne MG eded} Humalog 100 Humalog 100 No QD Humalog UNIT/ML UNIT/ML 100 UNIT/ML Venlafaxine Venlafaxine No 1{capsu QD Venlafaxin HCl ER 225 HCl ER 225 le_with e HCl ER MG MG _food} 225 MG Verzenio Verzenio No 1{table Verzenio 100 MG 100 MG t} 100 MG Dexcom G6 Dexcom G6 No Dexcom G6 Chin Strap Sewer - Chin Strap Sewer - Chin Strap Sewer - Ondansetron Ondansetron No Ondansetro 4 MG 4 MG n 4 MG Ultram 50 Ultram 50 No 1{table TID Ultram 50 MG MG t_as_ne MG eded} Fluticasone Fluticasone No 1{spray BID Fluticason Propionate Propionate _in_eac e 50 MCG/ACT 50 MCG/ACT h_nostr Propionate il} 50 MCG/ACT Furosemide Furosemide No 1{table QD Furosemide 40 MG 40 MG t} 40 MG Vitamin D3 Vitamin D3 No Vitamin D3 99556 UNIT 46650 UNIT 60374 UNIT HumaLOG 100 HumaLOG 100 No QD HumaLOG UNIT/ML UNIT/ML 100 UNIT/ML Fluticasone Fluticasone No 1{spray BID Fluticason Propionate Propionate _in_eac e 50 MCG/ACT 50 MCG/ACT h_nostr Propionate il} 50 MCG/ACT Dexcom G6 Dexcom G6 No Dexcom G6 Chin Strap Sewer - Chin Strap Sewer - Chin Strap Sewer - Venlafaxine Venlafaxine No Venlafaxin HCl ER 225 HCl ER 225 e HCl ER MG MG 225 MG Ultram 50 Ultram 50 No 1{table TID Ultram 50 MG MG t_as_ne MG eded} Vitamin D3 Vitamin D3 No Vitamin D3 68377 UNIT 45814 UNIT 39475 UNIT HumaLOG 100 HumaLOG 100 No QD HumaLOG UNIT/ML UNIT/ML 100 UNIT/ML Furosemide Furosemide No 1{table QD Furosemide 40 MG 40 MG t} 40 MG Verzenio Verzenio No 1{table Verzenio 100 MG 100 MG t} 100 MG Ondansetron Ondansetron No Ondansetro 4 MG 4 MG n 4 MG Fluticasone Fluticasone No 1{spray BID Fluticason Propionate Propionate _in_eac e 50 MCG/ACT 50 MCG/ACT h_nostr Propionate il} 50 MCG/ACT Dexcom G6 Dexcom G6 No Dexcom G6 Chin Strap Sewer - Chin Strap Sewer - Chin Strap Sewer - Venlafaxine Venlafaxine No Venlafaxin HCl ER 225 HCl ER 225 e HCl ER MG MG 225 MG Ultram 50 Ultram 50 No 1{table TID Ultram 50 MG MG t_as_ne MG eded} Immunizations Ordered Immunization Filled Immunization Date Status Commen ts Source Name Name [facility] 2021-[facility]-10 [facility] R[facility] 2021-09-10 [facility] Rc [facility] 2021-09-10 [facility] R[facility] 2021-09-10 [facility] Td Td 2019-07-25 [facility]pleted [facility] Td Td 2019-07-25 [facility] Td Td 2019-07-25 [facility]pleted [facility] 16:48:00 - [facility] Td Td 2019-07-25 [facility] Td Td 2019-07-25 [facility] Td Td 2019-07-25 Completed [facility] 16:48:00 - [facility] Td Td 2019-07-25 [facility]pleted [facility] Td Td 2019-07-25 [facility] Td Td 2019-07-25 [facility] Td Td 2019-07-25 [facility] Td Td 2019-07-25 [facility] Td Td 2019-07-25 [facility]pleted [facility]00 [facility] Td Td 2019-07-25 Completed [facility] 00:00:00 - [facility] Vital Signs Vital Name Observation Time Observation Value Comments Source Systolic blood 2023-06-16 23:56:00 118 mm[Hg] [facility] Diastolic blood 2023-06-16 23:56:00 75 mm[Hg] [facility] Heart rate 2023-06-16 23:56:00 92 /min [facility] Body temperature 2023-06-16 23:56:00 36.11 Leah [facility] [place] [facility] Respiratory rate 2023-06-16 23:56:00 18 /min [facility] [place] [facility] Body height 2023-06-16 23:56:00 161.3 cm [facility] Body weight 2023-06-16 23:56:00 101.691 kg [facility] [place] [facility] BMI 2023-06-16 23:56:00 39.09 kg/m2 [facility] Oxygen saturation in 2023-06-16 23:56:00 97 /min [facility] of Arterial blood by [place] [employer] edilberto Pulse oximetry Branch Systolic blood 2023-04-18 15:51:00 126 mm[Hg] [facility] Diastolic blood 2023-04-18 15:51:00 77 mm[Hg] [facility]ive rs[facility] Heart rate 2023-04-18 15:51:00 98 /min [facility] Body temperature 2023-04-18 15:51:00 36.61 Leah [facility] Respiratory rate 2023-04-18 15:51:00 16 /min [facility] Body height 2023-04-18 15:51:00 161.3 cm [facility] Body weight 2023-04-18 15:51:00 101.107 kg [facility] BMI 2023-04-18 15:51:00 38.87 kg/m2 [facility] Oxygen saturation in 2023-04-18 15:51:00 97 /min University of Arterial blood by [employer] edilberto Pulse oximetry Branch Systolic blood 2023-01-17 17:41:00 129 mm[Hg] [facility] Diastolic blood 2023-01-17 17:41:00 78 mm[Hg] [facility] Heart rate 2023-01-17 17:41:00 90 /min [facility] [place] [facility] Body temperature 2023-01-17 17:41:00 37.28 Leah [facility] [place] [facility] Respiratory rate 2023-01-17 17:41:00 16 /min [facility] Body height 2023-01-17 17:41:00 162.6 cm [facility] [place] [facility] Body weight 2023-01-17 17:41:00 98.629 kg [facility] [place] [facility] BMI 2023-01-17 17:41:00 37.32 kg/m2 [facility] Oxygen saturation in 2023-01-17 17:41:00 97 /min [facility] Arterial blood by [place] [employer] ed[facility]berto Pulse oximetry Branch Systolic blood 2022-12-18 18:31:00 118 mm[Hg] [facility] Diastolic blood 2022-12-18 18:31:00 73 mm[Hg] [facility] Heart rate 2022-12-18 18:31:00 102 /min [facility] Body temperature 2022-12-18 18:31:00 36.5 Leah [facility] [place] [facility] Respiratory rate 2022-12-18 18:31:00 18 /min [facility] Body height 2022-12-18 18:31:00 162.6 cm [facility] Body weight 2022-12-18 18:31:00 100.245 kg [facility] BMI 2022-12-18 18:31:00 37.93 kg/m2 [facility] Oxygen saturation in 2022-12-18 18:31:00 96 /min [facility] Arterial blood by [employer] edilberto Pulse oximetry Branch Systolic blood 2022-07-27 18:58:00 119 mm[Hg] [facility] Diastolic blood 2022-07-27 18:58:00 75 mm[Hg] [facility] Heart rate 2022-07-27 18:58:00 88 /min [facility] Body temperature 2022-07-27 18:58:[address] [facility] rate 2022-07-27 18:58:00 18 /min [facility] Body height 2022-07-27 18:58:00 160 cm Universi ty [facility] Body weight 2022-07-27 18:58:[address] [facility] BMI 2022-07-27 18:58:00 40.21 kg/m2 [facility] Oxygen saturation in 2022-07-27 18:58:00 97 /min [facility] Arterial blood by [facility] Pulse oximetry Branch height 2021-11-02 09:20:00 65 [in_i] [facility] weight 2021-11-02 09:20:00 236 [lb_av] [facility] temperature 2021-11-02 09:20:00 97.3 [degF] [facility] bmi 2021-11-02 09:20:00 39.27 kg/m2 [facility] oximetry 2021-11-02 09:20:00 97 % [facility] respiratory rate 2021-11-02 09:20:00 18 /min [facility] blood pressure 2021-11-02 09:20:00 132 mm[Hg] [facility] - systolic [facility] blood pressure 2021-11-02 09:20:00 60 mm[Hg] [facility] - diastolic [facility] WEIGHT 2021-08-25 03:40:00 108.455 kg WEIGHT 2021-08-24 04:00:00 108 kg HEIGHT 2021-08-23 20:08:00 160 cm WEIGHT 2021-08-23 20:08:00 107.8 kg WEIGHT 2021-08-25 03:40:00 108.455 kg WEIGHT 2021-08-24 04:00:00 108 kg HEIGHT 2021-08-23 20:08:00 160 cm WEIGHT 2021-08-23 20:08:00 107.8 kg height 2021-04-22 08:20:00 65 [in_i] [facility] weight 2021-04-22 08:20:00 235 [lb_av] [facility] temperature 2021-04-22 08:20:00 97.5 [degF] [facility] bmi 2021-04-22 08:20:00 39.10 kg/m2 [facility] Procedures Procedure Date / Time Performed Performing Clinician Sourc e POCT SARS-COV-2 2023-01-17 18:10:[facility] [place] [facility] NOW[facility] POCT MOLECULAR FLU 2023-01-17 17:48:00 Unknown, Attending [facility] POCT SARS-COV-2 2022-12-18 19:43:00 [facility] [place] ANTIGEN (BINAX NOW) [facility] ASSIGNMENT OF BENEFITS 2022-07-27 18:38:57 Doctor Unassigned, No [facility] Plan of Care Planned Activity Planned Date Details Comments Source Future Scheduled 2029-07-25 DTAP/TDAP/TD VACCINES ([address] [facility] 00:00:00 - Td or Tdap) [code = Medica l Center DTAP/TDAP/TD VACCINES (2 - Td or Tdap)] Future Scheduled 2024-08-23 Lipid panel (procedure) [facility] 00:00:00 [code = 21758204] Medical Ce nter Future Scheduled 2023-07-21 Influenza Vaccine (#1) [facility]00 [code = Influenza Vaccine Me dical Center (#1)] Future Scheduled 2022-11-[address] [facility] 00:00:00 (12+) [code = DEPRESSION Med ical Center SCREENING (12+)] Future Scheduled 2022-08-[address] [facility] 00:00:00 Counseling and Screening Med ical Center (12+) [code = Tobacco Cessation Counseling and Screening (12+)] Future Scheduled 2022-08-24 Urine screening for [facility] 00:00:00 protein (procedure) [code Me dical Center = 511986580] Future Scheduled 2022-02-[address] [facility] 00[facility]00 measurement (procedure) [facility] [code = 63886641] Future Scheduled 2014-01-27 SHINGLES VACCINES ([address] [facility] 00:00:00 2) [code = SHINGLES Medical Center VACCINES (1 of 2)] Future Scheduled 1985-01-27 Screening for malignant [facility] 00:00:00 neoplasm of cervix Medical C enter (procedure) [code = 433788279] Future Scheduled 1982-01-27 HEPATITIS C SCREENING [facility] 00:00[facility]00 [code = HEPATITIS C Medical Center SCREENING] Future Scheduled 1979-01-[address] [facility] 00:00:00 virus screening Medical Cent er (procedure) [code = 018048029] Future Scheduled 1974-01-27 DIABETIC EYE EXAM [code = [facility] 00:00:00 DIABETIC EYE EXAM] Medical C enter Future Scheduled 1970-01-27 Pneumococcal Vaccine: [facility] 00:[facility]:00 0-64 Years (1 - PCV) Medical Center [code = Pneumococcal Vaccine: 0-64 Years (1 - PCV)] Future Scheduled 1964 COVID-19 VACCINE (#1) [facility] 00:[facility]00 [code = COVID-19 VACCINE [facility] (#1)] Future Scheduled 1964 Screening for malignant [facility] 00:00:00 neoplasm of breast Medical C enter (procedure) [code = 307696124] Future Scheduled 1964 CT Colonography (combo) [facility] 00:00:00 [code = CT Colonography [facility] (combo)] Future Scheduled 1964 Screening for malignant [facility] 00:00:00 neoplasm of colon Medical Ce nter (procedure) [code = 251100218] Future Scheduled 1964 Screening for malignant [facility] 00:00:00 neoplasm of colon Medical Ce nter (procedure) [code = 437863527] Future Scheduled 1964 Screening for malignant [facility] 00:00:00 neoplasm of colon Medical Ce nter (procedure) [code = 225505718] Future Scheduled 1964 Screening for malignant [facility] 00:00:00 neoplasm of colon Medical Ce nter (procedure) [code = 364407752] Future Scheduled 1964 Sigmoidoscopy [code = [facility] Sigmoidoscopy] Medical Cente r Encounters Start End Encounter Admission Attending Care Care Encounter Source Date/Time Date/Time Type Type Clinicians Facility Department ID 2023-05-03 Outpatient [place], STLMLC STLMLC [id number] Common 13:48:00 Jose Angel [id number] [facility] 2022-10-28 Outpatient [place], STLMLC STLMLC [id number] Common 09:40:00 Jose Angel [id number] [facility] 2022-05-10 Outpatient [place], STLMLC STLC [id number] Common 14:12:01 Jose Angel [facility] 2022-04-05 Outpatient [place], STLMLC STLC [id number] Common 10:05:15 Jose Angel [facility] 2022-03-11 Outpatient [place], STLMLC STLC [id number] Common 10:32:00 Jose Angel [facility] 2022-01-11 Outpatient [place], STLMLC STLMLC [id number] Common 14:14:00 Jose Angel [facility] 2021-12-15 Outpatient [place], STLMLC STLMLC [id number] Common 14:24:55 Jose Angel [id number] [facility] 2021-12-15 Outpatient [place], STLMLC STLMLC [id number] Common 14:23:32 Jose Angel [id number] [facility] 2021-12-15 Outpatient [place], STLMLC STLMLC [id number] Common 12:12:42 Jose Angel [id number] [facility] 2021-12-15 Outpatient [place], STLMLC STLMLC [id number] Common 11:12:04 Jose Angel [id number] [facility] 2021-08-23 Inpatient [facility] Surgery [id number] [facility] 17:23:44 NORMAN 2023-06-16 2023-06-16 Outpatient R DELROY [facility] [id number] Univers 18:40:00 19:09:42 WANDY ity [facility] 2023-06-16 2023-06-16 Urgent Delroy Wandy [facility] [id number] [id number] Univers 18:40:00 19:09:42 Care Unknown, Attending HEALTH [id number] ity of [place] [id number] Rusty as BURKE?BLEA [phone] [address] MEDICAL OFFICE [facility] 2023-04-18 2023-04-18 [facility] [id number] Univers 10:40:00 11:19:04 REENU [facility] 2023-04-18 2023-04-18 Urgent [facility] 1..840.11 [id number] Univers 10:40:00 11:19:04 Care Unknown, Attending HEALTH 350..13.10 ity of [place] [id number] Rusty as BURKE?BLEA [phone] [address] MEDICAL OFFICE [facility] 2023-01-24 2023-01-24 [facility] [id number] Univers 00:00:00 00:00:00 [facility] [id number] it y of [place] 4.2.7.2.686 Rusty as BURKE?BLEA [id number] [address] MEDICAL OFFICE [facility] 2023-01-17 2023-01-17 Outpatient R PIPO [facility] [id number] Univers 11:40:00 12:08:00 CALLIE [facility] 2023-01-17 2023-01-17 Urgent Callie Cohen [facility] 1.2.840.114 [id number] Univers 11:40:00 12:08:00 Care Unknown, Attending HEALTH [id number] ity of [place] 4.2.7.2.686 Rusty as BURKE?BLEA [phone] [address] OFFICE [facility] 2023-01-13 2023-01-13 [facility] 1.2.840.114 [id number] Univers 00:00:00 00:00:00 Anai HEALTH 350.1.13.10 [facility] 4.2.7.2.686 Rusty as BURKE?BLEA [phone] [address] 2023-01-09 2023-01-09 [facility] Baird [facility] 1.2.840.114 [id number] Univers 00:00:00 00:00:00 Anai HEALTH 350.1.13.10 it y of [place] 4.2.7.2.686 Rusty as BURKE?BLEA [phone] [address] OFFICE [facility] 2022-12-19 2022-12-19 JOANNA Banks 1.2.840.114 [id number] Univers 00:00:00 00:00:00 (Out) Diane DOMENICO 350.1.13.10 it y of [facility] 4.2.7.2.686 Rusty as [phone] [address] 2022-12-19 2022-12-19 Telephone [facility] [id number] [id number] Univers 00:00:00 00:00:00 Anai HEALTH 350.1.13.10 it [facility] 4.2.7.2.686 Rusty as BURKE?BLEA [phone] [address] OFFICE [facility] 2022-12-18 2022-12-18 Outpatient R OLI [facility] [id number] Univers 12:00:00 14:01:33 ANAI ity [facility] 2022-12-18 2022-12-18 Urgent Oli Anai [facility] 1.2.840.114 [id number] Univers 12:00:00 14:01:33 Care Unknown, Attending HEALTH 350.1.13.10 ity of [place] 4.2.7.2.686 Rusty as BURKE?BLEA [phone] [address] OFFICE [facility] 2022-07-27 2022-07-27 [facility] [id number] Univers 13:40:00 14:39:42 SARMAD chandler o f [facility] 2022-07-27 2022-07-27 [facility] 1.2.840.114 [id number] Univers 13:40:00 14:00:00 Care Sarmad MAGANA 350.1.13.10 i ty of [place] 4.2.7.2.686 Rusty as BURKE?BLEA [phone] [address] MEDICAL OFFICE BUILDING 2022-07-27 2022-07-27 Orders Doctor JOANNA 1.2.840.114 [id number] Univers 00:00:00 00:00:00 Only Unassigned, DOMENICO 350.1.13.10 [facility] 4.2.7.2.686 Rusty as [phone] [address] 2022-02-14 2022-02-14 (TEL) STLMLC STLMLC [id number] Co mmon 00:00:00 00:00:00 [facility] 2021-11-28 2021-11-28 Outpatient [facility] [id number] Univers 12:45:00 13:09:44 SARMAD aceves [facility] 2021-11-28 2021-11-28 Laboratory Only, Ang Db Test [facility] 1.2.8 40.114 [id number] Univers 12:45:00 13:00:00 Only Unknown, Attending HEALTH 350.1.13.10 ity of [place] 4.2.7.2.686 Rusty as BURKE?BLEA [id number] [address] MEDICAL OFFICE BUILDING 2021-11-26 2021-11-26 (TEL) STLMLC STLMLC [id number] Co mmon 00:00:00 00:00:00 [facility] 2021-11-02 2021-11-02 (TEL) STLMLC STLMLC [id number] Co mmon 00:00:00 00:00:00 [facility] 2021-11-02 2021-11-02 (TEL) STLMLC STLMLC [id number] Co mmon 00:00:00 00:00:00 [facility] 2021-11-02 2021-11-02 PREV VISIT STLMLC STLMLC [id number] Common 00:00:00 00:00:00 EST AGE Ian 40-64 - [facility] 2021-10-27 2021-10-27 (TEL) STLMLC STLMLC [id number] Co mmon 00:00:00 00:00:00 [facility] 2021-10-19 2021-10-19 (TEL) STLMLC STLMLC [id number] Co mmon 00:00:00 00:00:00 [facility] 2021-08-23 2021-08-26 [facility] 20 [id number] [facility] 19:25:00 09:56:00 BRENDEN 2021-05-14 2021-05-14 (TEL) STLMLC STLMLC [id number] Co mmon 00:00:00 00:00:00 [facility] 2021-05-12 2021-05-12 (TEL) STLMLC STLMLC [id number] Co mmon 00:00:00 00:00:00 [facility] 2021-04-22 2021-04-22 OFFICE STLMLC STLMLC [id number] Co mmon 00:00:00 00:00:00 VISIT EST Spir it PT LEVEL 3 - [facility] 2021-04-22 2021-04-22 (TEL) STLMLC STLMLC [id number] Co mmon 00:00:00 00:00:00 [facility] 2021-04-07 2021-04-07 (TEL) STLMLC STLMLC [id number] Co mmon 00:00:00 00:00:00 [facility] 2021-02-10 2021-02-10 Outpatient STLMLC STLMLC [id number] Common 00:00:00 00:00:00 [facility] 2021-02-02 2021-02-02 Outpatient STLMLC STLMLC [id number] Common 00:00:00 00:00:00 [facility] 2021-02-01 2021-02-01 Outpatient STLMLC STLMLC [id number] Common 00:00:00 00:00:00 [facility] 2021 2021 Outpatient STLMLC STLMLC [id number] Common 00:00:00 00:00:00 [facility] 2020-12-24 2020-12-24 Outpatient STLMLC STLMLC [id number] Common 00:00:00 00:00:00 [facility] 2020-09-03 2020-09-03 Outpatient STLMLC STLMLC [id number] Common 00:00:00 00:00:00 [facility] 2020-08-03 2020-08-03 [facility] [id number] Common 16:00:00 16:00:[address] [facility] [address] [facility] 2020-02-06 2020-02-06 Out[facility] [id number] Common 13:20:00 13:20:[address] [facility] [address] [facility] 2020-01-22 2020-01-22 Out[facility] [id number] Common 16:30:00 16:30:[address] [facility] [address] [facility] 2020-01-22 2020-01-22 Outpatient [facility] [id number] Common 10:10:00 10:10:[address] [facility] [address] [facility] 2020-01-21 2020-01-21 Outpatient [facility] [id number] Common 09:44:00 09:44:[address] [facility] [address] [facility] 2019-12-12 2019-12-12 Out[facility] [id number] Common 16:20:00 16:20:[address] [facility] 2019-10-07 2019-10-07 Outpatient [facility] [id number] Common 14:40:00 14:40:[address] [facility] 2019-09-12 2019-09-12 Out[facility] [id number] Common 11:40:00 11:40:00 t [facility] [address] [facility] 2019-07-25 2019-07-25 Outpatient [facility] [id number] Common 16:15:00 16:15:00 t [facility] 2019-07-08 2019-07-08 Outpatient MHBL MHBL [id number] MHBL 08:02:00 08:02:00 2019-07-02 2019-07-02 [facility] [id number] Common 14:46:00 14:46:00 [facility] 2019-06-24 2019-06-24 [facility] [id number] Common 15:11:00 15:11:00 t [facility] [address] [facility] 2019-06-10 2019-06-10 Out[facility] [id number] Common 13:16:00 13:16:00 t [facility] 2019-06-10 2019-06-10 [facility] [id number] Common 13:14:00 13:14:00 t [facility] 2019-06-10 2019-06-10 [facility] [id number] Common 13:14:00 13:14:00 t [facility] 2019-06-10 2019-06-10 Out[facility] [id number] Common 10:00:00 10:00:00 t [facility] - [facility] 2019-06-06 2019-06-06 [id number] Common 14:43:00 14:43:00 [facility] 2019-06-05 2019-06-05 [id number] Common 11:34:00 11:34:00 t [facility] - [facility] 2019-06-03 2019-06-03 [id number] Common 11:00:00 11:00:00 t [facility] - [facility] 2019-05-20 2019-05-20 [facility] [id number] Common 11:32:00 11:32:[address] [facility] [address] [facility] 2019-04-30 2019-04-30 [facility] [id number] Common 14:45:00 14:45:00 t [facility] [address] [facility] 2019-04-02 2019-04-02 [facility] [id number] Common 15:48:00 15:48:[address] [facility] 2019-03-06 2019-03-06 [facility] 25 [id number] Common 16:15:00 16:15:[address] [facility] 2019-03-01 2019-03-01 [facility] 25 [id number] Common 10:15:00 10:15:00 t [facility] 2018-10-30 2018-10-30 [facility] [id number] Common 15:00:00 15:00:[address] [facility] 2018-04-06 2018-04-06 [facility] 14 [id number] Common 09:15:00 09:15:[address] [facility] 2018-03-20 2018-03-20 [facility] [id number] Common 15:30:00 15:30:[address] [facility] Results Test Description Test Time Test Comments Results Result Comments Source POCT SARS-COV-2 ANTIGEN (BINAX NOW) 2023-01-17 18:10:00 Test Item Value Reference Range Interpretation Comme nts POCT SARS-COV-2 ANTIGEN (test code = 48163-7) Not Detected Not Dete cted On board controls acceptable with C Line (test code = Yes 3574) Lab Interpretation (test code = 26730-3) Normal [facility] MOLECULAR [id number] 18:00:35 Test Item Value Reference Range Interpretation Comments POCT Molecular FluA (test code = Negative Negative 65249-7) POCT Molecular FluB (test code = Negative Negative 47694-6) Lab Interpretation (test code = Normal 90330-6) [facility] SARS-COV-2 ANTIGEN (BINAX NOW)2022-12-18 19:58:00 Test Item Value Reference Range Interpretation Comments POCT SARS-COV-2 ANTIGEN (test Not Detected Not Detected code = 06142-2) On board controls acceptable Yes with C Line (test code = 3574) Lab Interpretation (test code = Normal 69452-6) [facility]-GLUCOSE [id number] 08:06:45 Test Item Value Reference Range Interpretation Comments POC-GLUCOSE METER 54 mg/dL 70-110 L : [facility] (BEAKER) (test code = CHEMA Jay [facility], 1538) [address]: Inclusion Specialist/Techni kinza ID = [id number] for KRISTA CASTILLO [id number] 04:54:39 Test Item Value Reference Range Interpretation Comments MAGNESIUM (BEAKER) (test code = 1.9 mg/dL 1.6-2.6 627) Inclusion Specialist ID - PIAYA LBASIC METABOLIC [id number] 04:54:38 Test Item Value Reference Range Interpretation Comments SODIUM (BEAKER) 136 meq/L 136-145 (test code = 381) POTASSIUM (BEAKER) 4.3 meq/L 3.5-5.1 (test code = 379) CHLORIDE (BEAKER) 103 meq/L 98-107 (test code = 382) CO2 (BEAKER) (test 25 meq/L -29 code = 355) BLOOD UREA NITROGEN 12 mg/dL 7-21 (BEAKER) (test code = 354) CREATININE (BEAKER) 1.00 mg/dL 0.57-1.25 (test code = 358) GLUCOSE RANDOM 217 mg/dL 70-105 H (BEAKER) (test code = 652) CALCIUM (BEAKER) 8.8 mg/dL 8.4-10.2 (test code = 697) EGFR (BEAKER) (test 57 mL/min/1.73 ESTIMA MIKAYLA GFR IS code = 1092) sq m NOT ACCURATE CREATININE CLEARANCE IN PREDICTING GLOMERULAR FILTRATION RATE . ESTIMATED GFR I S NOT APPLICABLE FOR DIALYSIS PATIEN TS. Inclusion Specialist ID - PIAYA LCBC W/PLT COUNT & AUTO [id number] 04:39:11 Test Item Value Reference Range Interpretation Comments WHITE BLOOD CELL COUNT (BEAKER) 5.3 K/ L 3.5-10.5 (test code = 775) RED BLOOD CELL COUNT (BEAKER) 3.58 M/ L 3.93-5.22 L (test code = 761) HEMOGLOBIN (BEAKER) (test code = 11.6 GM/DL 11.2-15.7 410) HEMATOCRIT (BEAKER) (test code = 34.5 % 34.1-44.9 411) MEAN CORPUSCULAR VOLUME (BEAKER) 96.4 fL 79.4-94.8 H (test code = 753) MEAN CORPUSCULAR HEMOGLOBIN 32.4 pg 25.6-32.2 H (BEAKER) (test code = 751) MEAN CORPUSCULAR HEMOGLOBIN CONC 33.6 GM/DL 32.2-35.5 (BEAKER) (test code = 752) RED CELL DISTRIBUTION WIDTH 12.7 % 11.7-14.4 (BEAKER) (test code = 412) PLATELET COUNT (BEAKER) (test 240 K/CU MM 150-450 code = 756) MEAN PLATELET VOLUME (BEAKER) 9.6 fL 9.4-12.3 (test code = 754) NUCLEATED RED BLOOD CELLS 0 /100 WBC 0-0 (BEAKER) (test code = 413) NEUTROPHILS RELATIVE PERCENT 73 % (BEAKER) (test code = 429) LYMPHOCYTES RELATIVE PERCENT 18 % (BEAKER) (test code = 430) MONOCYTES RELATIVE PERCENT 6 % (BEAKER) (test code = 431) EOSINOPHILS RELATIVE PERCENT 1 % (BEAKER) (test code = 432) BASOPHILS RELATIVE PERCENT 1 % (BEAKER) (test code = 437) NEUTROPHILS ABSOLUTE COUNT 3.87 K/ L 1.56-6.13 (BEAKER) (test code = 670) LYMPHOCYTES ABSOLUTE COUNT 0.94 K/ L 1.18-3.74 L (BEAKER) (test code = 414) MONOCYTES ABSOLUTE COUNT (BEAKER) 0.34 K/ L 0.24-0.36 (test code = 415) EOSINOPHILS ABSOLUTE COUNT 0.07 K/ L 0.04-0.36 (BEAKER) (test code = 416) BASOPHILS ABSOLUTE COUNT (BEAKER) 0.03 K/ L 0.01-0.08 (test code = 417) IMMATURE GRANULOCYTES-RELATIVE 1 % 0-1 PERCENT (BEAKER) (test code = 2801) POCT-GLUCOSE [id number] 21:32:12 Test Item Value Reference Range Interpretation Comments POC-GLUCOSE METER 297 mg/dL 70-110 H : TESTED [place] T [place] [address] ([facility]) (test code = CHEMA Jay [facility], 1538) [address]: Inclusion Specialist/Techni kinza ID = [id number] for PH ILIP, LEXII POCT-GLUCOSE [id number] 17:02:54 Test Item Value Reference Range Interpretation Comments POC-GLUCOSE METER 75 mg/dL 70-110 : Notified RN/MD: TESTED ([facility]) (test code = AT [place] [id number] [facility] 1538) [facility], [facility] 30: Inclusion Specialist/Techni kinza ID = [id number] for MAJA NO, NELLY [id number] 16:04:46 Test Item Value Reference Range Interpretation Comments ACTIVATED CLOTTING TIME 296 sec : 74 -137 seconds, (BEAKER) (test code = Baseli ne: TESTED AT 441) [address], [facility] 30: Inclusion Specialist/Techni kinza ID = [id number] for CA RPIO, MICHAEL [id number] 15:27:34 Test Item Value Reference Range Interpretation Comments ACTIVATED CLOTTING TIME 290 sec : 74 -137 seconds, (BEAKER) (test code = Baseli ne: TESTED AT 441) [address], [facility] 30: Inclusion Specialist/Techni kinza ID = [id number] for SA LINAS, CHAZ [id number] 14:59:17 Test Item Value Reference Range Interpretation Comments ACTIVATED CLOTTING TIME 274 sec : 74 -137 seconds, (BEAKER) (test code = [place] ne: TESTED AT 441) [facility] 6720 [facility], 770 30: Inclusion Specialist/Techni kinza ID = [id number] for BIA ENCINAS [id number] 14:48:05 Test Item Value Reference Range Interpretation Comments ACTIVATED CLOTTING TIME 230 sec : 74 -137 seconds, (BEAKER) (test code = [place] ne: TESTED AT 441) [facility] 6720 [facility], 770 30: Inclusion Specialist/Techni kinza ID = [id number] for CA RPIO, MICHAEL POCT-GLUCOSE [id number] 11:58:23 Test Item Value Reference Range Interpretation Comments POC-GLUCOSE METER 155 mg/dL 70-110 H : TESTED A T [facility] 6720 (BEAKER) (test code = [facility], 153) [address]: Inclusion Specialist/Techni kinza ID = [id number] for FAYE CALDERON POCT-GLUCOSE [id number] 10:51:20 Test Item Value Reference Range Interpretation Comments POC-GLUCOSE METER 244 mg/dL 70-110 H : TESTED A T [facility] 6720 (BEAKER) (test code = [facility], 153) [address]: Inclusion Specialist/Techni kinza ID = [id number] for Franky Fink POCT-GLUCOSE [id number] 09:18:45 Test Item Value Reference Range Interpretation Comments POC-GLUCOSE METER 394 mg/dL 70-110 H : TESTED A T [facility] 6720 (BEAKER) (test code = [facility], 153) [address]: Inclusion Specialist/Techni kinza ID = [id number] for Franky Fink (CELLAVISION MANUAL DIFF)2021-08-25 07:56:47 Test Item Value Reference Range Interpretation Comments NEUTROPHILS - REL 71 % (CELLAVISION)(BEAKER) (test code = 2816) LYMPHOCYTES - REL 25 % (CELLAVISION)(BEAKER) (test code = 2817) MONOCYTES - REL 1 % (CELLAVISION)(BEAKER) (test code = 2818) EOSINOPHILS - REL 3 % (CELLAVISION)(BEAKER) (test code = 2819) NEUTROPHILS - ABS 3.20 K/ul 1.56-6.13 (CELLAVISION)(BEAKER) (test code = 2830) LYMPHOCYTES - ABS 1.13 K/ul 1.18-3.74 L (CELLAVISION)(BEAKER) (test code = 2831) MONOCYTES - ABS 0.05 K/uL 0.24-0.36 L (CELLAVISION)(BEAKER) (test code = 2832) EOSINOPHILS - ABS 0.14 K/uL 0.04-0.36 (CELLAVISION)(BEAKER) (test code = 2834) TOTAL COUNTED (BEAKER) (test code = 100 1351) WBC MORPHOLOGY (BEAKER) (test code Normal = 487) PLT MORPHOLOGY (BEAKER) (test code Normal = 486) ANISOCYTOSIS (BEAKER) (test code = 1+ few 961) MICROCYTES (BEAKER) (test code = 1+ few 965) POIKILOCYTES (BEAKER) (test code = 1+ few 966) SPHEROCYTES (BEAKER) (test code = 1+ few 768) ARTIFACT (CELLAVISION)(BEAKER) Present (test code = 3432) PLATELET CONCENTRATION Adequate (CELLAVISION)(BEAKER) (test code = 3438) Inclusion Specialist ID - Traci Lopez comments: Slide comments:CBC W/PLT COUNT & AUTO [id number] 07:56:46 Test Item Value Reference Range Interpretation Comments WHITE BLOOD CELL COUNT 4.5 K/ L 3.5-10.5 (BEAKER) (test code = 775) RED BLOOD CELL COUNT 3.72 M/ L 3.93-5.22 L (BEAKER) (test code = 761) HEMOGLOBIN (BEAKER) 11.9 GM/DL 11.2-15.7 (test code = 410) HEMATOCRIT (BEAKER) 36.3 % 34.1-44.9 (test code = 411) MEAN CORPUSCULAR 97.6 fL 79.4-94.8 H Discordant with VOLUME (BEAKER) (test previo us code = 753) result,clinical correlation is required. MEAN CORPUSCULAR 32.0 pg 25.6-32.2 HEMOGLOBIN (BEAKER) (test code = 751) MEAN CORPUSCULAR 32.8 GM/DL 32.2-35.5 HEMOGLOBIN CONC (BEAKER) (test code = 752) RED CELL DISTRIBUTION 12.6 % 11.7-14.4 WIDTH (BEAKER) (test code = 412) PLATELET COUNT 251 K/CU MM 150-450 (BEAKER) (test code = 756) MEAN PLATELET VOLUME 9.9 fL 9.4-12.3 (BEAKER) (test code = 754) NUCLEATED RED BLOOD 0 /100 WBC 0-0 CELLS (BEAKER) (test code = 413) POCT-GLUCOSE [id number] 07:28:08 Test Item Value Reference Range Interpretation Comments POC-GLUCOSE METER 454 mg/dL 70-110 HH : Notified RN/MD: (BEAKER) (test code = TESTED AT [facility] 9384 0903) [facility], [address]: Inclusion Specialist/Techni kinza ID = [id number] for FAYE CALDERON [id number] 05:35:50 Test Item Value Reference Range Interpretation Comments MAGNESIUM (BEAKER) (test code = 1.9 mg/dL 1.6-2.6 627) Inclusion Specialist ID - jrlBASIC METABOLIC [id number] 05:35:49 Test Item Value Reference Range Interpretation Comments SODIUM (BEAKER) 136 meq/L 136-145 (test code = 381) POTASSIUM (BEAKER) 4.6 meq/L 3.5-5.1 (test code = 379) CHLORIDE (BEAKER) 102 meq/L 98-107 (test code = 382) CO2 (BEAKER) (test 25 meq/L 22-29 code = 355) BLOOD UREA NITROGEN 13 mg/dL 7-21 (BEAKER) (test code = 354) CREATININE (BEAKER) 1.08 mg/dL 0.57-1.25 (test code = 358) GLUCOSE RANDOM 364 mg/dL 70-105 H (BEAKER) (test code = 652) CALCIUM (BEAKER) 8.8 mg/dL 8.4-10.2 (test code = 697) EGFR (BEAKER) (test 52 mL/min/1.73 ESTIMA MIKAYLA GFR IS code = 1092) sq m NOT ACCURATE CREATININE CLEARANCE IN PREDICTING GLOMERULAR FILTRATION RATE . ESTIMATED GFR I S NOT APPLICABLE FOR DIALYSIS PATIEN TS. Inclusion Specialist ID - jrlPROTHROMBIN TIME/[id number] 05:10:57 Test Item Value Reference Range Interpretation Comments PROTIME (BEAKER) 13.9 seconds 11.9-14.2 (test code = 759) INR (BEAKER) (test 1.09 See_Comment [Automat ed message] code = 370) The system [employer] generated this result transmitted ref erence range: <=5.90. The reference range was not used to int erpret this result as normal/abnormal . RECOMMENDED COUMADIN/WARFARIN INR THERAPY RANGESSTANDARD DOSE: 2.0 - 3.0 Includes: PROPHYLAXIS for venous thrombosis, systemic embolization; TREATMENT for venous thrombosis and/or pulmonary embolus.HIGH RISK: Target INR is 2.5-3.5 for patients with mechanical heart valves.SARS-COV2/RT-PCR ([facility]) 2021-08-25 02:05:49 Test Item Value Reference Range Interpretation Comments SARS-COV2/RT-PCR (test code = Negative Negative [id number]) Negative result for this test determines that SARS-CoV-2 RNA was not present in the specimen above the Limit of Detection (LOD). However, Negative results do not preclude SARS-CoV-2 infection and should not be used as the sole basis for treatment or patient management decisions. Negative results must be combined with clinical observations, patient history, and epidemiological information. A false negative result may occur if a specimen is improperly collected, transported, or handled. A false negative result should be considered if patient's recent exposures or clinical presentation indicate that COVID-19 (SARS-CoV-2) is likely and diagnostic tests for other causes of illness are negative. Re-testing should be considered in cases of suspected false negatives.The limit of detection for this assay is 100 copies/mL.This SARS-CoV-2 test is a real-time RT_PCR test intended for the qualitative detection of nucleic acid from SARS-CoV-2 in a nasopharyngeal swab specimen collected from individuals suspected of COVID-19 by their healthcare provider.This test has not been Food and Drug Administration (FDA) cleared or approved. This is a modified version of an approved Emergency Use Authorization (EUA) and is in the process of review by the FDA. Once authorized by the FDA, the issued EUA will be effective until the declaration that circumstances exist justifying the authorization of the emergency use of in vitro diagnostic tests for detection and/or diagnosis of COVID-19 is terminated under Section 564(b)(2) of the Act or the EUA is revoked under Section 564(g) of the Act.Testing was performed using [employer] SARS-CoV-2 assay.Fact Sheet for Healthcare Providers:https://www.Offerti/rubina/RT SARS-CoV-2 HCP Fact Sheet 51- 153212.pdfFact Sheet for Healthcare Patients:https://www.Offerti/rubina/RT SARS-CoV-2 Patient Fact Sheet EN 51-560924F8.pdfPOCT-GLUCOSE [id number] 20:59:32 Test Item Value Reference Range Interpretation Comments POC-GLUCOSE METER 181 mg/dL 70-110 H : TESTED A T [facility] 6720 (OPS USAAKER) (test code = [facility], 153) [address]: Inclusion Specialist/Techni kinza ID = [id number] for DARLINE NEIL POCT-GLUCOSE [id number] 17:25:29 Test Item Value Reference Range Interpretation Comments POC-GLUCOSE METER 250 mg/dL 70-110 H : TESTED A T [facility] 6720 (BEAKER) (test code = [facility], 153) [address]: Inclusion Specialist/Techni kinza ID = [id number] for MICHAEL RM HEMOGLOBIN [id number] 13:20:08 Test Item Value Reference Range Interpretation Comments HEMOGLOBIN A1C (BEAKER) (test code = 7.4 % 4.3-6.1 H 368) POCT-GLUCOSE [id number] 12:11:08 Test Item Value Reference Range Interpretation Comments POC-GLUCOSE METER 310 mg/dL 70-110 H : TESTED A T [facility] 6720 (BEAKER) (test code = [facility], 153) [address]: Inclusion Specialist/Techni kinza ID = [id number] for MICHAEL RM HIGH SENSITIVITY TROPONIN [id number] 10:33:16 Test Item Value Reference Range Interpretation Comments HIGH SENSITIVITY 81 pg/ml See_Comment H [Automated message] TROPONIN I (test code = The system which [id number]) generated this result transmitted ref erence range: <=17. Th e reference range was not used to int erpret this result as normal/abnormal . Inclusion Specialist ID - BRIANA LEIGH ANNsherman PUBLIC HEALTH DIRECTOR STAT High Sensitivity Troponin-I results should be used in conjunction with other diagnostic information such as ECG, clinical observations and information, and patient symptoms to aid in the diagnosis of [place].POCT-GLUCOSE [id number] 07:43:54 Test Item Value Reference Range Interpretation Comments POC-GLUCOSE METER 352 mg/dL 70-110 H : TESTED A T [facility] 6720 (BEAKER) (test code = [place], 1538) [address]: Inclusion Specialist/Techni kinza ID = [id number] for MICHAEL RM HEPATIC FUNCTION [id number] 06:08:35 Test Item Value Reference Range Interpretation Comments TOTAL PROTEIN (BEAKER) (test code = 6.6 gm/dL 6.0-8.3 770) ALBUMIN (BEAKER) (test code = 1145) 3.6 g/dL 3.5-5.0 BILIRUBIN TOTAL (BEAKER) (test code 0.2 mg/dL 0.2-1.2 = 377) BILIRUBIN DIRECT (BEAKER) (test 0.1 mg/dL 0.1-0.5 code = 706) ALKALINE PHOSPHATASE (BEAKER) (test 94 U/L 40-150 code = 346) AST (SGOT) (BEAKER) (test code = 13 U/L 5-34 353) ALT (SGPT) (BEAKER) (test code = 15 U/L 6-55 347) Inclusion Specialist ID - JRLBASIC METABOLIC [id number] 06:08:34 Test Item Value Reference Range Interpretation Comments SODIUM (BEAKER) 142 meq/L 136-145 (test code = 381) POTASSIUM (BEAKER) 3.5 meq/L 3.5-5.1 (test code = 379) CHLORIDE (BEAKER) 105 meq/L 98-107 (test code = 382) CO2 (BEAKER) (test 27 meq/L 22-29 code = 355) BLOOD UREA NITROGEN 15 mg/dL 7-21 (BEAKER) (test code = 354) CREATININE (BEAKER) 1.14 mg/dL 0.57-1.25 (test code = 358) GLUCOSE RANDOM 63 mg/dL 70-105 L (BEAKER) (test code = 652) CALCIUM (BEAKER) 8.8 mg/dL 8.4-10.2 (test code = 697) EGFR (BEAKER) (test 49 mL/min/1.73 ESTIMA MIKAYLA GFR IS code = 1092) sq m NOT ACCURATE CREATININE CLEARANCE IN PREDICTING GLOMERULAR FILTRATION RATE . ESTIMATED GFR I S NOT APPLICABLE FOR DIALYSIS PATIEN TS. Inclusion Specialist ID - JRLHIGH SENSITIVITY TROPONIN [id number] 06:07:50 Test Item Value Reference Range Interpretation Comments HIGH SENSITIVITY 119 pg/ml See_Comment H [Automated message] TROPONIN I (test code The sy stem which = [id number]) generated this result transmitted ref erence range: <=17. Th e reference range was not used to int erpret this result as normal/abnormal . Inclusion Specialist ID - JRLThe PUBLIC HEALTH DIRECTOR STAT High Sensitivity Troponin-I results should be used in conjunction with other diagnostic information such as ECG, clinical observations and information, and patient symptoms to aid in the diagnosis of [place].POCT-GLUCOSE [id number] 05:38:08 Test Item Value Reference Range Interpretation Comments POC-GLUCOSE METER 101 mg/dL 70-110 : TESTED A T [facility] 6720 (BEAKER) (test code = [place], 1538) [address]: Inclusion Specialist/Techni kinza ID = [id number] for Samm sosa (contract, Mouna martinez CBC W/PLT COUNT & AUTO [id number] 05:32:08 Test Item Value Reference Range Interpretation Comments WHITE BLOOD CELL COUNT (BEAKER) 5.0 K/ L 3.5-10.5 (test code = 775) RED BLOOD CELL COUNT (BEAKER) 3.77 M/ L 3.93-5.22 L (test code = 761) HEMOGLOBIN (BEAKER) (test code = 11.9 GM/DL 11.2-15.7 410) HEMATOCRIT (BEAKER) (test code = 34.7 % 34.1-44.9 411) MEAN CORPUSCULAR VOLUME (BEAKER) 92.0 fL 79.4-94.8 (test code = 753) MEAN CORPUSCULAR HEMOGLOBIN 31.6 pg 25.6-32.2 (BEAKER) (test code = 751) MEAN CORPUSCULAR HEMOGLOBIN CONC 34.3 GM/DL 32.2-35.5 (BEAKER) (test code = 752) RED CELL DISTRIBUTION WIDTH 12.7 % 11.7-14.4 (BEAKER) (test code = 412) PLATELET COUNT (BEAKER) (test 271 K/CU MM 150-450 code = 756) MEAN PLATELET VOLUME (BEAKER) 9.9 fL 9.4-12.3 (test code = 754) NUCLEATED RED BLOOD CELLS 0 /100 WBC 0-0 (BEAKER) (test code = 413) NEUTROPHILS RELATIVE PERCENT 59 % (BEAKER) (test code = 429) LYMPHOCYTES RELATIVE PERCENT 32 % (BEAKER) (test code = 430) MONOCYTES RELATIVE PERCENT 5 % (BEAKER) (test code = 431) EOSINOPHILS RELATIVE PERCENT 3 % (BEAKER) (test code = 432) BASOPHILS RELATIVE PERCENT 1 % (BEAKER) (test code = 437) NEUTROPHILS ABSOLUTE COUNT 2.94 K/ L 1.56-6.13 (BEAKER) (test code = 670) LYMPHOCYTES ABSOLUTE COUNT 1.56 K/ L 1.18-3.74 (BEAKER) (test code = 414) MONOCYTES ABSOLUTE COUNT (BEAKER) 0.25 K/ L 0.24-0.36 (test code = 415) EOSINOPHILS ABSOLUTE COUNT 0.13 K/ L 0.04-0.36 (BEAKER) (test code = 416) BASOPHILS ABSOLUTE COUNT (BEAKER) 0.06 K/ L 0.01-0.08 (test code = 417) IMMATURE GRANULOCYTES-RELATIVE 0 % 0-1 PERCENT (BEAKER) (test code = 2801) POCT-GLUCOSE [id number] 04:41:29 Test Item Value Reference Range Interpretation Comments POC-GLUCOSE METER 61 mg/dL 70-110 L : Notified RN/MD: TESTED (BEAKER) (test code = AT [facility] [address] [facility] 6877) [place], [address]: Inclusion Specialist/Techni kinza ID = [id number] for Pool e (contract, Mouna martinez MICROALBUMIN, RANDOM [id number] 04:14:24 Test Item Value Reference Range Interpretation Comments MICROALBUMIN URINE (BEAKER) (test < mg/dL code = 1794) Reference Range: No NormalsOperator ID - TANIA MCREATININE, RANDOM URINE 2021-08-24 04:11:48 Test Item Value Reference Range Interpretation Comments CREATININE URINE (BEAKER) (test 184.9 mg/dL code = 375) Reference Range: No NormalsOperator ID - TANIA MURINALYSIS [id number] 03:09:20 Test Item Value Reference Range Interpretation Comments RBC UA (BEAKER) (test code = 519) 1 /HPF WBC UA (BEAKER) (test code = 520) 1 /HPF BACTERIA (BEAKER) (test code = 517) None Seen SQUAMOUS EPITHELIAL (BEAKER) (test 1 /HPF code = 516) CRYSTALS, URINE (BEAKER) (test code None Seen = 1521) Inclusion Specialist ID - techURINALYSIS WITH MICROSCOPIC IF [id number] 03:07:34 Test Item Value Reference Range Interpretation Comments COLOR (BEAKER) (test code = 470) Yellow CLARITY (BEAKER) (test code = 469) Clear SPECIFIC GRAVITY UA (BEAKER) (test 1.050 1.001-1.035 H code = 468) PH UA (BEAKER) (test code = 467) 6.0 5.0-8.0 PROTEIN UA (BEAKER) (test code = 10 mg/dL Negative A 464) GLUCOSE UA (BEAKER) (test code = Negative Negative 365) KETONES UA (BEAKER) (test code = Negative Negative 371) BILIRUBIN UA (BEAKER) (test code = Negative Negative 462) BLOOD UA (BEAKER) (test code = 461) Negative Negative NITRITE UA (BEAKER) (test code = Negative Negative 465) LEUKOCYTE ESTERASE UA (BEAKER) Negative Negative (test code = 466) UROBILINOGEN UA (BEAKER) (test code 0.2 mg/dL 0.2-1.0 = 463) SOURCE(BEAKER) (test code = 2794) Inclusion Specialist ID - [auto]HIGH SENSITIVITY TROPONIN [id number] 01:38:14 Test Item Value Reference Range Interpretation Comments HIGH SENSITIVITY 117 pg/ml See_Comment H [Automated message] TROPONIN I (test code The sy stem which = [id number]) generated this result transmitted ref erence range: <=17. Th e reference range was not used to int erpret this result as normal/abnormal . Inclusion Specialist ID - TANIA MThe PUBLIC HEALTH DIRECTOR STAT High Sensitivity Troponin-I results should be used in conjunction with other diagnostic information such as ECG, clinical observations and information, and patient symptoms to aid in the diagnosis of [place].B-TYPE NATRIURETIC FACTOR (BNP)2021-08-23 23:16:55 Test Item Value Reference Range Interpretation Comments B-TYPE NATRIURETIC PEPTIDE (BEAKER) 43 pg/mL 0-100 (test code = 700) Inclusion Specialist ID - DBLIPID [id number] 23:10:55 Test Item Value Reference Range Interpretation Comments TRIGLYCERIDES (BEAKER) (test code = 178 mg/dL 540) CHOLESTEROL (BEAKER) (test code = 182 mg/dL 631) HDL CHOLESTEROL (BEAKER) (test code 62 mg/dL = 976) LDL CHOLESTEROL CALCULATED (BEAKER) 84 mg/dL (test code = 633) Triglyceride Reference Range: Low Risk <150 Borderline 150-199 High Risk 200- 499 Very High Risk >=500Cholesterol Reference Range: Low Risk <200 Borderline 200-239 High Risk >240HDL Cholesterol Reference Range: Low Risk >=60 High Risk <40LDL Cholesterol Reference Range: Optimal <100 Near Optimal 100-129 Borderline 130-159 High 160-189 Very High >=190 Inclusion Specialist ID - DBHEPATIC FUNCTION [id number] 23:10:55 Test Item Value Reference Range Interpretation Comments TOTAL PROTEIN (BEAKER) (test code = 6.9 gm/dL 6.0-8.3 770) ALBUMIN (BEAKER) (test code = 1145) 3.6 g/dL 3.5-5.0 BILIRUBIN TOTAL (BEAKER) (test code 0.2 mg/dL 0.2-1.2 = 377) BILIRUBIN DIRECT (BEAKER) (test 0.1 mg/dL 0.1-0.5 code = 706) ALKALINE PHOSPHATASE (BEAKER) (test 102 U/L 40-150 code = 346) AST (SGOT) (BEAKER) (test code = 13 U/L 5-34 353) ALT (SGPT) (BEAKER) (test code = 15 U/L 6-55 347) Inclusion Specialist ID - DBBASIC METABOLIC [id number] 23:10:54 Test Item Value Reference Range Interpretation Comments SODIUM (BEAKER) 138 meq/L 136-145 (test code = 381) POTASSIUM (BEAKER) 3.8 meq/L 3.5-5.1 (test code = 379) CHLORIDE (BEAKER) 102 meq/L 98-107 (test code = 382) CO2 (BEAKER) (test 25 meq/L 22-29 code = 355) BLOOD UREA NITROGEN 14 mg/dL 7-21 (BEAKER) (test code = 354) CREATININE (BEAKER) 1.12 mg/dL 0.57-1.25 (test code = 358) GLUCOSE RANDOM 95 mg/dL 70-105 (BEAKER) (test code = 652) CALCIUM (BEAKER) 9.1 mg/dL 8.4-10.2 (test code = 697) EGFR (BEAKER) (test 50 mL/min/1.73 ESTIMA MIKAYLA GFR IS code = 1092) sq m NOT ACCURATE CREATININE CLEARANCE IN PREDICTING GLOMERULAR FILTRATION RATE . ESTIMATED GFR I S NOT APPLICABLE FOR DIALYSIS PATIEN TS. Inclusion Specialist ID - [id number] 23:10:54 Test Item Value Reference Range Interpretation Comments PHOSPHORUS (BEAKER) (test code = 3.1 mg/dL 2.3-4.7 604) Inclusion Specialist ID - [id number] 23:10:53 Test Item Value Reference Range Interpretation Comments MAGNESIUM (BEAKER) (test code = 1.8 mg/dL 1.6-2.6 627) Inclusion Specialist ID - [id number] [id number] 23:00:13 Test Item Value Reference Range Interpretation Comments PROTIME (BEAKER) 13.4 seconds 11.9-14.2 (test code = 759) INR (BEAKER) (test 1.04 See_Comment [Automat ed message] code = 370) The system [employer] generated this result transmitted ref erence range: <=5.90. The reference range was not used to int erpret this result as normal/abnormal . RECOMMENDED COUMADIN/WARFARIN INR THERAPY RANGESSTANDARD DOSE: 2.0 - 3.0 Includes: PROPHYLAXIS for venous thrombosis, systemic embolization; TREATMENT for venous thrombosis and/or pulmonary embolus.HIGH RISK: Target INR is 2.5-3.5 for patients with mechanical heart valves.CBC W/PLT COUNT & AUTO [id number] 22:52:14 Test Item Value Reference Range Interpretation Comments WHITE BLOOD CELL COUNT (BEAKER) 5.6 K/ L 3.5-10.5 (test code = 775) RED BLOOD CELL COUNT (BEAKER) 3.94 M/ L 3.93-5.22 (test code = 761) HEMOGLOBIN (BEAKER) (test code = 12.5 GM/DL 11.2-15.7 410) HEMATOCRIT (BEAKER) (test code = 37.8 % 34.1-44.9 411) MEAN CORPUSCULAR VOLUME (BEAKER) 95.9 fL 79.4-94.8 H (test code = 753) MEAN CORPUSCULAR HEMOGLOBIN 31.7 pg 25.6-32.2 (BEAKER) (test code = 751) MEAN CORPUSCULAR HEMOGLOBIN CONC 33.1 GM/DL 32.2-35.5 (BEAKER) (test code = 752) RED CELL DISTRIBUTION WIDTH 12.6 % 11.7-14.4 (BEAKER) (test code = 412) PLATELET COUNT (BEAKER) (test 282 K/CU MM 150-450 code = 756) MEAN PLATELET VOLUME (BEAKER) 9.6 fL 9.4-12.3 (test code = 754) NUCLEATED RED BLOOD CELLS 0 /100 WBC 0-0 (BEAKER) (test code = 413) NEUTROPHILS RELATIVE PERCENT 60 % (BEAKER) (test code = 429) LYMPHOCYTES RELATIVE PERCENT 32 % (BEAKER) (test code = 430) MONOCYTES RELATIVE PERCENT 4 % (BEAKER) (test code = 431) EOSINOPHILS RELATIVE PERCENT 2 % (BEAKER) (test code = 432) BASOPHILS RELATIVE PERCENT 1 % (BEAKER) (test code = 437) NEUTROPHILS ABSOLUTE COUNT 3.36 K/ L 1.56-6.13 (BEAKER) (test code = 670) LYMPHOCYTES ABSOLUTE COUNT 1.81 K/ L 1.18-3.74 (BEAKER) (test code = 414) MONOCYTES ABSOLUTE COUNT (BEAKER) 0.25 K/ L 0.24-0.36 (test code = 415) EOSINOPHILS ABSOLUTE COUNT 0.13 K/ L 0.04-0.36 (BEAKER) (test code = 416) BASOPHILS ABSOLUTE COUNT (BEAKER) 0.03 K/ L 0.01-0.08 (test code = 417) IMMATURE GRANULOCYTES-RELATIVE 1 % 0-1 PERCENT (BEAKER) (test code = 2801) POCT-GLUCOSE [id number] 22:33:28 Test Item Value Reference Range Interpretation Comments POC-GLUCOSE METER 90 mg/dL 70-110 : TESTED A T [facility] [address] ([place]) (test code = [place], 1538) [address]: Inclusion Specialist/Techni kinza ID = [id number] for VIOLET ALLAN RAD, CHEST, 1 VIEW, NON [id number] 20:41:00Reason for exam:->shrotness of breathShould this be performed at the bedside?->Yes [facility] : 1965 Sex: FFINAL REPORT TECHNIQUE: Frontal view of the chest. INDICATION: shrotness of breathCOMPARISON:None DISCUSSION:Limited evaluation due to portable technique. Lines and hardware: Overlying EKG leads are noted.Heart and mediastinum: Within normal limitsLungs and pleura: No focal airspace consolidation. No pleural effusion. No pneumothorax.Soft tissues and bones: No acute abnormality. IMPRESSION:Negative for acute intrathoracic process. Signed: Arturo Caldera MDReport Verified Date/Time: 08/23/2021 20:41:44 Reading Location: [facility]
[2023-07-10 19:56] LABS: Absolute Lymphocytes (CBC) 1.1 K/uL (0.7-4.9); Hematocrit 40.9 % (36.0-45.0); Lymphocytes % 8.5 % (15.3-44.8); MCV 98.6 fL (80-100); MPV 7.5 fL (7.6-11.3); Platelets 269 thou/uL (152-406); RBC Red Blood Cell Count 4.14 M/uL (3.86-4.86)
[2023-07-10 20:02] LABS: Specific Gravity 1.021 (1.005-1.030); Urine Bilirubin NEGATIVE (Negative); Urine Blood Negative (Negative); Urine Clarity Clear (Clear); Urine Color Light-Yellow (Yellow); Urine Glucose 4+ (Over) (Negative); Urine Protein NEGATIVE (Negative); Urine Urobilinogen Normal (Normal); Urine pH 5.5 (5.0-7.0)
[2023-07-10 20:04] LABS: Protime INR 1.17
--- NOTE | 2023-07-10 20:09 | RAD REPORT ---
EXAM DESCRIPTION: CT - Head Brain Wo Cont - 07/10/2023 7:53 pm CLINICAL HISTORY: Difficulty speaking/breast cancer COMPARISON: 2021 TECHNIQUE: Computed axial tomography of the head was obtained. IV contrast was not requested. All CT scans are performed using dose optimization technique as appropriate and may include automated exposure control or mA/KV adjustment according to patient size. FINDINGS: An intracranial bleed is not seen No hydrocephalus. No significant shift of midline structures No extra-axial fluid collection is noted. 4.2 centimeter low-density area left frontal lobe. Small low-density area right frontal lobe. 7.6 centimeter low-density area left temporal lobe. 2 cent imeter low density area upper left temporal lobe. All of these areas likely represent small metastase s with surrounding vasogenic edema Sclerotic and lytic areas are present within the skull left greater than right. Cortical disruption i nvolves the superior aspect of the left mastoids medially. Cortical disruption also involves the wing of the left sphenoid. This is all consistent with metastatic disease Fluid within the sinuses/ mastoids is not seen. IMPRESSION: Bilateral cerebral metastases Bony metastases
[2023-07-10 20:16] LABS: Bilirubin Direct 0.4 mg/dL (0-0.2); Bilirubin Indirect, Calculated 0.9 mg/dL (0.2-0.8); Bilirubin Total 1.3 mg/dL (0.2-1.0); Magnesium 2.1 mg/dL (1.6-2.4); Potassium 3.5 mEq/L (3.5-5.1); Protein, Total 7.2 g/dL (6.4-8.2); Troponin High Sensitivity 15.6 pg/mL (<58.9)
--- NOTE | 2023-07-10 20:35 | RAD REPORT ---
EXAM DESCRIPTION: Mic Single View07/10/2023 8:21 pm CLINICAL HISTORY: Chest pain COMPARISON: May 1023 FINDINGS: Moderate mediastinal lymphadenopathy. Small bilateral pulmonary nodules. Heart is borderline enlarged
[2023-07-10] MEDS ORDERED: dexAMETHasone 10 MG/ML VIAL ONE (20:54)
--- NOTE | 2023-07-10 20:56 | ER ---
Nurse's Notes [facility] Name: Shivani Sagastume Age: 58 yrs Sex: Female : 1965 Arrival Date: 07/10/2023 Time: 17:56 Bed 16 Private MD: Diagnosis: Secondary malignant neoplasm of brain Presentation: 07/10 18:02 Chief complaint: Patient states: L eye swelling for 2-3 days. Has happened once before. ll1 Trouble talking for 2-3 days. + [place] and photosensitivity. Coronavirus screen: Vaccine status: Patient reports receiving the 2nd dose of the covid vaccine. Client denies travel out of the [place] in the last 14 days. At this time, the client does not indicate any symptoms associated with coronavirus-19. Ebola Screen: Patient denies travel to an Ebola-affected area in the 21 days before illness onset. No acute neurological deficit is noted. Initial Sepsis Screen: Does the patient meet any 2 criteria? No. Patient's initial sepsis screen is negative. Does the patient have a suspected source of infection? Yes: Skin breakdown/wound. Risk Assessment: Do you want to hurt yourself or someone else? Patient reports no desire to harm self or others. Onset of symptoms was July 08, 2023. 18:02 Method Of Arrival: Wheelchair ll1 18:02 Acuity: VARUN 3 ll1 Stroke Activation: Symptom onset > 6 hours Physician: Stroke Attending; Name: ; Notified At: ; Arrived At: Physician: Chief Stroke Resident; Name: ; Notified At: ; Arrived At: Physician: Stroke Resident; Name: ; Notified At: ; Arrived At: Physician: ED Attending; Name: ; Notified At: ; Arrived At: Physician: ED Resident; Name: ; Notified At: ; Arrived At: Historical: - Allergies: 18:06 Benadryl; ll1 - PMHx: 18:06 breast cancer; Diabetes Type 1; Hypertension; ll1 - PSHx: 18:06 heart stents; R eye SX; ll1 - Immunization history:: Client reports receiving the 2nd dose of the Covid vaccine. - Social history:: Smoking status: Patient denies any tobacco usage or history of. - Family history:: not pertinent. Screenin:00 [facility] ED Fall Risk Assessment (Adult) History of falling in the last 3 months, ko1 including since admission No falls in past 3 months (0 pts) Confusion or Disorientation No (0 pts) Intoxicated or Sedated No (0 pts) Impaired Gait No (0 pts) Mobility Assist Device Used No (0 pt) Altered Elimination No (0 pt) Score/Fall Risk Level 0 - 2 = Low Risk Oriented to surroundings, Maintained a safe environment, Educated pt \T\ family on fall prevention, incl call for assistance when getting out of bed, Hourly rounding (assess needs \T\ fall precautionary measures) done. Abuse screen: Denies threats or abuse. Denies injuries from another. Nutritional screening: No deficits noted. Tuberculosis screening: No symptoms or risk factors identified. Assessment: 20:00 VAN Scoring: Arm Drift: Patients demonstrates NO arm weakness. Patient is VAN Negative. ko1 General: Appears uncomfortable, Behavior is calm, cooperative. Pain: Complains of pain in headache Pain does not radiate. Pain currently is 7 out of 10 on a pain scale. Quality of pain is described as pressure. Neuro: Level of Consciousness is awake, alert, obeys commands, Oriented to person, place, time, situation. Neuro: Reports headache in entire. Cardiovascular: Heart tones S1 S2 present Patient's skin is warm and dry. Rhythm is sinus rhythm. Respiratory: Airway is patent Respiratory effort is even, unlabored, Respiratory pattern is regular, symmetrical. GI: No signs and/or symptoms were reported involving the gastrointestinal system. Abdomen is round non-distended. EENT: Eyes swelling of left eye lid.. Derm: Skin is pink, warm \T\ dry. Musculoskeletal: Circulation, motion, and sensation intact. 21:00 Reassessment: Patient and/or family updated on plan of care and expected duration. Pain ko1 level reassessed. Patient is alert, oriented x 3, equal unlabored respirations, skin warm/dry/pink. Vital Signs: 18:02 BP 127 / 70; Pulse 88; Resp 16; Temp 97.8; Pulse Ox 97% ; Weight 102.06 kg; Height 5 ll1 ft. 4 in. ; Pain 5/10; 20:26 BP 142 / 65 Supine; Pulse 84; Resp 19; Pulse Ox 98% ; sm8 20:26 BP 133 / 68 Sitting; Pulse 89; Resp 17; Pulse Ox 97% ; sm8 20:26 BP 109 / 61 Standing; Pulse 88; Resp 18; Pulse Ox 97% ; sm8 20:54 BP 105 / 58; Pulse 87; Resp 12; Pulse Ox 98% ; sm8 18:02 Body Mass Index 38.62 (102.06 kg, 162.56 cm) ll1 18:02 Pain Scale: Adult ll1 ED Course: 17:57 Patient arrived in ED. rg4 18:06 Triage completed. ll1 18:08 Arm band placed on. ll1 18:09 Chaim Satnizo MD is Attending Physician. cp3 19:51 Inserted saline lock: 22 gauge in right forearm, using aseptic technique. Blood rv1 collected. 19:52 Basic Metabolic Panel Sent. rv1 19:52 CBC with Diff Sent. rv1 19:52 Hepatic Function Sent. rv1 19:52 Magnesium Sent. rv1 19:52 Protime (+inr) Sent. rv1 19:52 Ptt, Activated Sent. rv1 19:52 Troponin High Sensitivity Sent. rv1 19:52 Urinalysis w/ reflexes Sent. rv1 19:54 CT Head Brain wo Cont In Process Unspecified. EDMS 19:56 Patrica Medeiros, RN is Primary Nurse. ko1 20:00 Patient has correct armband on for positive identification. Placed in gown. Bed in low ko1 position. Call light in reach. Side rails up X 1. 20:16 EKG done, by ED staff. sm8 20:22 Chest Single View XRAY In Process Unspecified. EDMS 20:53 Alana Fairchild MD is Referral Physician. cp3 21:19 No provider procedures requiring assistance completed. IV discontinued, intact, ko1 bleeding controlled, No redness/swelling at site. Pressure dressing applied. 21:20 Provided Education on: need to follow up. ko1 Administered Medications: 20:48 Drug: Decadron - Dexamethasone IVP 10 mg Route: IVP; Site: left forearm; ko1 21:21 Follow up: Response: No adverse reaction ko1 Medication: 21:19 VIS not applicable for this client. ko1 Outcome: 20:55 Discharge ordered by . cp3 21:19 Discharged to home via wheelchair, with family. ko1 21:19 Condition: stable 21:19 Discharge instructions given to patient, family, Instructed on discharge instructions, follow up and referral plans. medication usage, Demonstrated understanding of instructions, follow-up care, medications, Prescriptions given X 2. 21:20 Patient left the ED. ko1 Signatures: Dispatcher [employer] Chaim Newell MD MD cp3 Deb Marroquin4 Desiree Sagastume RN RN ll1 Patrica Medeiros RN RN ko1 Amy Mcmullen1 Kylah Aldridge 8
--- NOTE | 2023-07-10 20:56 | EDPHYS ---
Physician Documentation [facility] Name: Shivani Sagastume Age: 58 yrs Sex: Female : 1965 Arrival Date: 07/10/2023 Time: 17:56 Bed 16 Private MD: ED Physician Chaim Santizo HPI: 07/10 18:21 This 58 yrs old Female presents to ER via Wheelchair with complaints of Eye Swelling, cp3 Trouble Talking. 18:21 Patient is a 58-year-old female with a history of breast cancer with mets to the bone cp3 and liver who is currently on oral chemotherapy treatment who presents to the ED secondary to acute swelling of her left eye with lid closure since yesterday. Patient endorses this is happened 1 time previously and was improved with a steroid injection. The patient also endorses that she has had difficulty speaking since yesterday her notes that has to be before 5 PM because that is when he got home and he noted the speech difficulty yesterday patient is also having difficulty ambulating she feels unsteady on her feet. All symptoms started before 5 PM yesterday patient's endorses that the symptoms were worse yesterday and this is actually improved when the slurred speech did not improve today he insisted that she come to the ED. Patient denies fever, chills, nausea, vomiting, chest pain, shortness of breath. In terms of past medical history the patient has had cancer to the breast and lymph nodes with chemotherapy\E\surgery black\E\radiation and is now on oral chemo treatment only with known mets to the bones, ribs, sternum. Historical: - Allergies: 18:06 Benadryl; ll1 - PMHx: 18:06 breast cancer; Diabetes Type 1; Hypertension; ll1 - PSHx: 18:06 heart stents; R eye SX; ll1 - Immunization history:: Client reports receiving the 2nd dose of the Covid vaccine. - Social history:: Smoking status: Patient denies any tobacco usage or history of. - Family history:: not pertinent. ROS: 18:21 Constitutional: Negative for fever, chills, and weight loss, ENT: Negative for injury, cp3 pain, and discharge, Neck: Negative for injury, pain, and swelling, Cardiovascular: Negative for chest pain, palpitations, and edema, Respiratory: Negative for shortness of breath, cough, wheezing, and pleuritic chest pain, Abdomen/GI: Negative for abdominal pain, nausea, vomiting, diarrhea, and constipation, Back: Negative for injury and pain, : Negative for injury, bleeding, discharge, and swelling, MS/Extremity: Negative for injury and deformity, Skin: Negative for injury, rash, and discoloration. 18:21 Eyes: Positive for Left eye swelling with tearing. 18:21 Neuro: Positive for gait disturbance, speech changes, weakness. Exam: 18:21 Eyes: Left eye with soft tissue swelling the lid is closed. Patient with swelling of cp3 the sclera. No erythema no visual disturbance. 18:21 Neuro: Orientation: is normal. Vital Signs: 18:02 BP 127 / 70; Pulse 88; Resp 16; Temp 97.8; Pulse Ox 97% ; Weight 102.06 kg; Height 5 ll1 ft. 4 in. ; Pain 5/10; 20:26 BP 142 / 65 Supine; Pulse 84; Resp 19; Pulse Ox 98% ; sm8 20:26 BP 133 / 68 Sitting; Pulse 89; Resp 17; Pulse Ox 97% ; sm8 20:26 BP 109 / 61 Standing; Pulse 88; Resp 18; Pulse Ox 97% ; sm8 20:54 BP 105 / 58; Pulse 87; Resp 12; Pulse Ox 98% ; sm8 18:02 Body Mass Index 38.62 (102.06 kg, 162.56 cm) ll1 18:02 Pain Scale: Adult ll1 MDM: 18:09 Patient medically screened. cp3 21:20 Differential diagnosis: Metastatic disease to the brain, brain mass, intracranial cp3 hemorrhage, orbital mass. Data reviewed: vital signs, nurses notes, old medical records. Consideration of Admission/Observation Escalation of care including admission/observation considered. Discussed case the patient's oncologist who recommended 4 mg of Decadron 3 times daily and a PPI. The patient be seen in clinic tomorrow. Management of patient was discussed with the following: Telecommunications Analyst: Dr. Mcdonald. I considered the following discharge prescriptions or medication management in the emergency department decadron iv. Response to treatment: the patient's symptoms have markedly improved after treatment. 07/10 19:24 Order name: Basic Metabolic Panel; Complete Time: 20:31 cp3 07/10 19:24 Order name: CBC with Diff; Complete Time: 20:03 cp3 07/10 19:24 Order name: Hepatic Function; Complete Time: 20:31 cp3 07/10 19:24 Order name: Magnesium; Complete Time: 20:31 cp3 07/10 19:24 Order name: Protime (+inr); Complete Time: 20:31 cp3 07/10 19:24 Order name: Ptt, Activated; Complete Time: 20:31 cp3 07/10 19:24 Order name: Troponin High Sensitivity; Complete Time: 20:31 cp3 07/10 19:24 Order name: Urinalysis w/ reflexes; Complete Time: 20:03 cp3 07/10 19:24 Order name: CT Head Brain wo Cont; Complete Time: 21:05 cp3 07/10 19:24 Order name: Chest Single View XRAY; Complete Time: 21:05 cp3 07/10 19:24 Order name: EKG; Complete Time: 19:25 cp3 07/10 19:24 Order name: Cardiac monitoring; Complete Time: 20:12 3 07/10 19:24 Order name: EKG - Nurse/Tech; Complete Time: 20:16 cp3 07/10 19:24 Order name: IV Saline Lock; Complete Time: 19:52 cp3 07/10 19:24 Order name: Labs collected and sent; Complete Time: 19:52 3 07/10 19:24 Order name: NPO; Complete Time: 20:16 cp3 07/10 19:24 Order name: O2 Per Protocol; Complete Time: 20:16 cp3 07/10 19:24 Order name: O2 Sat Monitoring; Complete Time: 20:16 3 07/10 19:24 Order name: Orthostatics; Complete Time: 20:28 cp3 Administered Medications: 20:48 Drug: Decadron - Dexamethasone IVP 10 mg Route: IVP; Site: left forearm; ko1 21:21 Follow up: Response: No adverse reaction ko1 Disposition Summary: 07/10/23 20:55 Discharge Ordered Location: Home cp3 Condition: Stable cp3 Diagnosis - Secondary malignant neoplasm of brain cp3 Followup: cp3 - With: Alana Fairchild MD - When: Tomorrow - Reason: Recheck today's complaints Discharge Instructions: - Discharge Summary Sheet cp3 - Metastatic Cancer cp3 Forms: - Medication Reconciliation Form cp3 - Thank You Letter cp3 - Antibiotic Education cp3 - Prescription Opioid Use cp3 - Patient Portal Instructions cp3 - Leadership Thank You Letter cp3 Prescriptions: - DECADRON - take 4 milligram by ORAL route 3 times per day for 5 days; 15 tablet; Refills: cp3 0, Product Selection Permitted - Protonix 40 mg Oral Tablet - take 1 tablet by ORAL route once daily; 30 tablet; Refills: 0, Product cp3 Selection Permitted Signatures: Dispatcher [employer] Chaim Newell MD MD cp3 Desiree Sagastume RN RN ll1 Patrica Medeiros RN RN ko1
[2023-07-10 21:33] VITALS: TEMP 97.8
[2023-07-10 21:38] VITALS: BP 105/58; O2SAT 98
--- NOTE | 2023-07-11 15:51 | EKG ---
Test Date: 2023-07-10 Test Time: 20:07:37 Dungeon Master: ROSS MEASUREMENT RESULTS: Intervals: Rate: 84 IL: 134 QRSD: 76 QT: 404 QTc: 477 [place]: P: 11 IL: 134 QRS: 85 T: 36 INTERPRETIVE STATEMENTS: Normal sinus rhythm Low voltage QRS Cannot rule out Anterior infarct, age undetermined Abnormal ECG Compared to ECG 08/19/2021 14:42:30 Myocardial infarct finding now present Right-axis deviation no longer present Electronically Signed On 07-11-23 15:50:30 CDT by Freddie Louis
== END 2023-07-10 21:20 | disposition home or self-care (01) ==
LOC: ER 17:56
DX: C79.31 Secondary malignant neoplasm of brain (principal); C50.919 Malignant neoplasm of unspecified site of unspecified female breast; I10 Essential (primary) hypertension; E10.9 Type 1 diabetes mellitus without complications; Z95.818 Presence of other cardiac implants and grafts; Z88.8 Allergy status to other drugs, medicaments and biological substances
CPT/HCPCS: 93005; 85025; 80048; 36415; 83735; 85610; 80076; 85730; 81003; 84484; 70450; 71045; 96374; 99284; J1100

== ENCOUNTER 2023-10-08 20:15 | Inpatient (IN) | payer BC ==
--- OUTSIDE RECORDS SUMMARY | 2023-10-08 20:22 | XMS REPORT | Continuity of Care Document ---
:1965 Author Organization [facility] t Address [address] [place] [address] [address] [place] [address] Care Team Providers Name Role Phone JOSE ANGEL LOPEZ Primary Care Physician Unavailable Jose Angel Lopez Attending Clinician Unavailable NORMAN LINCOLN Attending Clinician Unavailable CHRISTA VARGAS Attending Clinician Unavailable Christa Workman Attending Clinician Doctor Unassigned, [place] Attending Clinician Unavailable WANDY POTTS Attending Clinician Unavailable Wandy Potts PA-C Attending Clinician Unknown, Attending Attending Clinician Unavailable MACY VALENTIN Attending Clinician Unavailable Macy Garber Attending Clinician Aani Baird MD Attending Clinician CALLIE COHEN Attending Clinician Unavailable Callie Barclay Attending Clinician Diane Schaeffer RN Attending Clinician Unavailable ANAI BAIRD Attending Clinician Unavailable SARMAD LINTON Attending Clinician Unavailable Sarmad Velasquez Attending Clinician Only, Ang Db Test Attending Clinician Unavailable BRENDEN PORTILLO Attending Clinician Unavailable SONALI COOK Attending Clinician Unavailable NORMAN LINCOLN Admitting Clinician Unavailable AMANDA MARTIN Admitting Clinician Unavailable Payers Payer Name Policy Type Policy Number Effective Date Expiration Date Brooks jones AETNA SELECT [id number] 2020 [place] ACCESS 00:00:00 BCBS [facility] [id number] 2021 00:00:00 [employer] 6 [id number] [facility] Blue Cross 6 [id number] [facility] t [facility] AETNA 53 [id number] 2006 [facility] 00:00:00 [facility] AETNA 53 [id number] 2006 [facility] 00:00:00 [facility] AETNA 53 [id number] 2006 [facility] 00:00:00 [facility] AETNA 53 [id number] [facility] AETNA C1 [id number] [facility] Problems Condition Condition Condition Status Onset Resolution Last Treating Co mments Source Name Details Category Date Date Treatment Clinician Date Recurrent Recurrent Disease Active 2022-11 Uni vers acute acute -17 ity of serous serous 00:00: [place] otitis otitis 00 Medical media of media of Branch left ear left ear Essential Essential Disease Active 2022-11 Uni vers hypertensi hypertensi -17 it y of on on 00:00: [place] 00 Medical Branch Type 2 Type 2 Disease Active 2022-11 Univers diabetes diabetes -17 ity of mellitus mellitus 00:00: [place] with with 00 Medical diabetic diabetic Branch mononeurop mononeurop athy, athy, without without long-term long-term current current use of use of insulin insulin CAD CAD Disease Active 2020-11 [facility] [address] (coronary (coronary 0-04 [place] s artery artery 00:00: Medical disease) disease) Center Cellulitis Cellulitis Disease Active U nivers and and 6-24 [place]y of abscess [place] leg, leg, 00 Medical except except Branch foot foot Back pain Back pain Disease Active Uni vers 8-14 ity of :: [place] [address] Medical Branch Hip joint Hip joint Disease Active Uni vers pain pain 8-14 ity of :: [address] Branch 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 [facility] Malignant Malignant Problem Com mon neoplasm neoplasm Spirit of of - CHI upper-oute upper-oute St r quadrant r quadrant Janice kes of female of left Medica l breast female Center breast [id number] Current Problem Common moderate Spirit episode of - CHI major depressive [facility] disorder Medical without Center prior episode [id number] Hyperlipid Problem Com mon emia, Spirit unspecifie - CHI d hyperlipid [facility] emia type Medical Center [id number] Insulin Problem Commo n pump Spirit status - CHI [facility] [id number] nursing home Problem Com mon (current) Spirit use of - CHI insulin [facility] [id number] Type 1 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 Allergies, Adverse Reactions, Alerts Allergy Allergy Status Severity Reaction(s) Onset Inactive Treating Comm ents Source Name Type Date Date Clinician DIPHENHY Allergy Active Other [facility]INE [facility] LISINOPR Allergy Active Other [facility] [place] -[facility] 00:: [facility] Diphenhy Drug Active Other (See [facility] dramine Allergy Comments) 914 [facility] [place] Lisinopr Drug Active Other (See [facility] Allergy Comments) 08-03 [facility]:: [place] NO KNOWN Drug Active Univers ALLERGIE Class ity of S [facility] diphenhy diphenhy Active Unknown Commo n dramine dramine [facility] Social History Social Habit Start Date Stop Date Quantity Comments Source History SDOH [facility] Alcohol Std Drinks Medica Center History SDOH [facility] Alcohol Binge Medical Cora [facility] Gender identity Universit y [facility] Sexual orientation [facility] Exposure to 2023-01-07 2023-01-17 Not sure University SARS-CoV-2 (event) 00:00:00 11:32:00 [facility] History of Social 2023-01-17 2023-01-17 Univers ity of function 00:00:00 00:00:00 [facility] Alcohol intake 2021-08-24 2021-08-24 Ex-drinker [facility] 00:00:00 00:00:00 (finding) [facility] Tobacco use and 2021-08-23 2021-08-[address] [facility] kes exposure 00:00:00 00:00:00 tobacco non-user [facility] History SDOH 2021-08-23 2021-08-[address] [facility] Alcohol Frequency 00:00:00 00:00:00 [facility] History of tobacco 1989-05-19 Cigarette Smoker University of use 00:00:00 [facility] Sex Assigned At [address] Janice kes 00:00:00 00:00:00 [facility] Smoking Status Start Date Stop Date Source Ex-smoker 2022-12-18 00:00:00 2022-12-18 00:00:00 Universi ty [facility] Never Smoker Common [facility] Medications Ordered Filled Start Stop Current Ordering Indication Dosage Frequency Signature Comments Components Source Medication Medication Date Date Medication? Clinician (SIG) Name Name ticagrelor 2022-11 Yes Take by [facility] ers (BRILINTA 1-17 mouth. ity of ORAL) 09:13: [address] ticagrelor 2022-11 Yes Take by [facility] ers (BRILINTA 1-17 mouth. ity of ORAL) 09:13: [address] ticagrelor 2022-11 Yes Take by [facility] ers (BRILINTA 1-17 mouth. ity of ORAL) 09:13: [address] amoxicillin 2022-11 Yes [id number] 1{tbl} Take 1 Univers -clavulanat 1-17 [id number] tablet by it y of e 00:00: mouth in [place] (AUGMENTIN) 00 the Medical 875-125 mg morning Branch per tablet and 1 tablet in the evening. amoxicillin 2022-11 Yes [id number] 1{tbl} Take 1 Univers -clavulanat 1-17 [id number] tablet by it y of e 00:00: mouth in [place] (AUGMENTIN) 00 the Medical 875-125 mg morning Branch per tablet and 1 tablet in the evening. amoxicillin 2022-11 Yes [id number] 1{tbl} Take 1 Univers -clavulanat 1-17 [id number] tablet by it y of e 00:00: mouth in [place] (AUGMENTIN) 00 the Medical 875-125 mg morning Branch per tablet and 1 tablet in the evening. amoxicillin 2022-11- No [id number] 1{tbl} Take 1 Univers -clavulanat 1-17 11-17 [id number] tablet by i ty of e 00:00: 00:00 mouth in [place] (AUGMENTIN) 00 :00 the Medical 875-125 mg morning Branch per tablet and 1 tablet in the evening. Do all this for 7 days. amoxicillin 2022-11- No [id number] 1{tbl} Take 1 Univers -clavulanat 1-17 11-17 [id number] tablet by i ty of e 00:00: 00:00 mouth in [place] (AUGMENTIN) 00 :00 the Medical 875-125 mg morning Branch per tablet and 1 tablet in the evening. Do all this for 7 days. amoxicillin 2022-11- No [id number] 1{tbl} Take 1 Univers -clavulanat 1-17 11-17 [id number] tablet by i ty of e 00:00: 00:00 mouth in [place] (AUGMENTIN) 00 :00 the Medical 875-125 mg morning Branch per tablet and 1 tablet in the evening. Do all this for 7 days. amoxicillin 2022-11- No [id number] 1{tbl} Take 1 Univers -clavulanat 1-17 11-17 [id number] tablet by i ty of e 00:00: 00:00 mouth in [place] (AUGMENTIN) 00 :00 the Medical 875-125 mg morning Branch per tablet and 1 tablet in the evening. Do all this for 7 days. amoxicillin 2022-11- No [id number] 1{tbl} Take 1 Univers -clavulanat 1-17 10-06 [id number] tablet by i ty of e 00:00: 00:00 mouth in [place] (AUGMENTIN) 00 :00 the Medical 875-125 mg morning Branch per tablet and 1 tablet in the evening. Do all this for 7 days. amoxicillin 2022-11- No [id number] 1{tbl} Take 1 Univers -clavulanat 17 10-06 [id number] tablet by i ty of e 00:00: 00:00 mouth in [place] (AUGMENTIN) 00 :00 the Medical 875-125 mg morning Branch per tablet and 1 tablet in the evening. Do all this for 7 days. ciprofloxac Yes [id number] 4[drp] Place 4 Univers in-dexameth 7-28 [id number] Drops in ity of asone 00:00: left ear [place] 0.3-0.1 % 00 in the Medical otic drops morning Branch and 4 Drops in the evening. ciprofloxac Yes [id number] 4[drp] Place 4 Univers in-dexameth 7-28 [id number] Drops in ity of asone 00:00: left ear [place] 0.3-0.1 % 00 in the Medical otic drops morning Branch and 4 Drops in the evening. ciprofloxac Yes [id number] 4[drp] Place 4 Univers in-dexameth 7-28 [id number] Drops in ity of asone 00:00: left ear [place] 0.3-0.1 % 00 in the Medical otic drops morning Branch and 4 Drops in the evening. ciprofloxac Yes [id number] 4[drp] Place 4 Univers in-dexameth 7-28 [id number] Drops in ity of asone 00:00: left ear [place] 0.3-0.1 % 00 in the Medical otic drops morning Branch and 4 Drops in the evening. ciprofloxac Yes [id number] 4[drp] Place 4 Univers in-dexameth 7-28 [id number] Drops in ity of asone 00:00: left ear [place] 0.3-0.1 % 00 in the Medical otic drops morning Branch and 4 Drops in the evening. dexamethaso 2022- No [id number] 10mg U nivers ne 5-30 05-30 ity of (DECADRON) 16:15: 16:20 [place] injection 00 :00 Medical 10 mg Branch diphenhydrA 2022- No [id number] 25mg U nivers MINE 5-30 05-30 ity of (BENADRYL) 16:15: 16:16 [place] capsule 25 00 :09 Medical mg Branch dexamethaso 2022- No [id number] 10mg 10 mg, Univers ne 5-30 05-30 Intramuscu ity of (DECADRON) 16:15: 16:20 lar, ONCE, [place] injection 00 :00 1 dose, On Medi edilberto 10 mg Tue Branch 04/18/23 at 1115, Routine Venlafaxine Yes 1{tbl} Take 1 Un edita 225 mg TR24 5-30 tablet by ity of 10:54: mouth [place] 14 daily. [facility] Branch insulin Yes inject Univers lispro 5-30 under the ity of protamine-i 10:54: [facility]. [facility] lispro 100 Branch unit/mL (50-50) injection Venlafaxine Yes 1{tbl} Take 1 Un edita 225 mg TR24 5-30 tablet by ity of 10:54: mouth [place] [address] [facility] insulin Yes inject Univers lispro 5-30 under the ity of protamine-i 10:54: skin. [place] nsulin 14 Medical lispro 100 Branch unit/mL (50-50) injection Venlafaxine 0 Yes 1{tbl} Take 1 Un edita 225 mg TR24 5-30 tablet by ity of 10:54: mouth [place] [address] [facility] insulin Yes inject Univers lispro 5-30 under the ity of protamine-i 10:54: skin. [place] nsulin 14 Medical lispro 100 Branch unit/mL (50-50) injection Venlafaxine 0 Yes 1{tbl} Take 1 Un edita 225 mg TR24 5-30 tablet by ity of 10:54: mouth [place] 14 daily. Medical Branch insulin Yes inject Univers lispro 5-30 under the ity of protamine-i 10:54: skin. [place] nsulin 14 Medical lispro 100 Branch unit/mL (50-50) injection Venlafaxine Yes 1{tbl} Take 1 Un edita 225 mg TR24 5-30 tablet by ity of 10:54: mouth [place] 14 daily. [facility] Branch insulin Yes inject Univers lispro 5-30 under the ity of protamine-i 10:54: skin. [place] nsulin 14 Medical lispro 100 Branch unit/mL (50-50) injection Venlafaxine Yes 1{tbl} Take 1 Un edita 225 mg TR24 5-30 tablet by ity of 10:54: mouth [place] 14 daily. [facility] Branch insulin Yes inject Univers lispro 5-30 under the ity of protamine-i 10:54: skin. [place] nsulin 14 Medical lispro 100 Branch unit/mL (50-50) injection ofloxacin 2022- No [id number] 5[drp] Place 5 Univers 0.3 % otic 5-30 06-07 Drops in ity of drops 00:00: 04:59 left ear [place] 00 :00 in the Medical morning Branch and 5 Drops in the evening. Do all this for 7 days. cephALEXin 2022- No [id number] 500mg Take 1 Univers 500 mg 5-30 06-05 capsule by ity of capsule 00:00: 04:59 mouth 4 [place] 00 :00 (four) Medical times Branch daily for 5 days. amoxicillin 2022- No [id number] 1{tbl} Take 1 Univers -clavulanat 2-28 03-11 tablet by it y of e 00:00: 05:59 mouth in [place] (AUGMENTIN) 00 :00 the Medical 875-125 mg morning Branch per tablet and 1 tablet in the evening. Do all this for 10 days. amoxicillin 2022- No [id number] 1{tbl} Take 1 Univers -clavulanat 2-28 03-11 tablet by it y of e 00:00: 05:59 mouth in [place] (AUGMENTIN) 00 :00 the Medical 875-125 mg morning Branch per tablet and 1 tablet in the evening. Do all this for 10 days. Venlafaxine 2022-0 Yes 1{tbl} Take 1 Un edita 225 mg TR24 1-29 tablet by ity of 13:05: mouth [place] 12 daily. Medical Branch insulin 0 Yes inject Univers lispro 1-29 under the ity of protamine-i 13:05: [facility]. [facility] lis[facility] Branch unit/mL (50-50) injection Venlafaxine 0 Yes 1{tbl} Take 1 Un edita 225 mg TR24 1-29 tablet by ity of 13:05: mouth [place] 12 daily. Medical Branch insulin 0 Yes inject Univers lispro 1-29 under the ity of protamine-i 13:05: [facility]. [facility] lispro 100 Branch unit/mL (50-50) injection Venlafaxine 2022-0 Yes 1{tbl} Take 1 Un edita 225 mg TR24 1-29 tablet by ity of 13:05: mouth [place] 12 daily. Medical Branch insulin 0 Yes inject Univers lispro 1-29 under the ity of protamine-i 13:05: skin. [facility] lispro 100 Branch unit/mL (50-50) injection Venlafaxine 0 Yes 1{tbl} Take 1 Un edita 225 mg TR24 1-29 tablet by ity of 13:05: mouth [place] 12 daily. Medical Branch insulin 0 Yes inject Univers lispro 1-29 under the ity of protamine-i 13:05: skin. [facility] 12 Medical lispro 100 Branch unit/mL (50-50) injection Venlafaxine 2022-0 Yes 1{tbl} Take 1 Un edita 225 mg TR24 1-29 tablet by ity of 13:05: mouth [place] 12 daily. Medical Branch insulin 2022-0 Yes inject Univers lispro 1-29 under the ity of protamine-i 13:05: skin. [facility] Medical lispro 100 Branch unit/mL (50-50) injection Venlafaxine 2022-0 Yes 1{tbl} Take 1 Un edita 225 mg TR24 1-29 tablet by ity of 13:05: mouth [place] 12 daily. Medical Branch insulin 2022-0 Yes inject Univers lispro 1-29 under the ity of protamine-i 13:05: skin. [facility] 12 Medical lispro 100 Branch unit/mL (50-50) injection Venlafaxine 2022-0 Yes 1{tbl} Take 1 Un edita 225 mg TR24 1-29 tablet by ity of 13:05: mouth [place] 12 daily. Medical Branch insulin 2022-0 Yes inject Univers lispro 1-29 under the ity of protamine-i 13:05: skin. [facility] 12 Medical lispro 100 Branch unit/mL (50-50) injection benzonatate 2022-0 Yes [id number] 200mg Take 2 Univers 100 mg 1-29 capsules ity of capsule 00:00: by mouth [place] 00 every 8 Medical (eight) Branch hours as needed for Cough. cetirizine 2022-0 Yes [id number] 10mg Take 1 U nivers (ZYRTEC) 10 1-29 tablet by ity of mg tablet 00:00: [place] 00 the Medical morning. Branch benzonatate 2022-0 Yes [id number] 200mg Take 2 Univers 100 mg 1-29 capsules ity of capsule 00:00: by mouth [place] 00 every 8 Medical (eight) Branch hours as needed for Cough. cetirizine 2022-0 Yes [id number] 10mg Take 1 U nivers (ZYRTEC) 10 1-29 tablet by ity of mg tablet 00:00: [place] 00 the Medical morning. Branch benzonatate 2022-0 Yes [id number] 200mg Take 2 Univers 100 mg 1-29 capsules ity of capsule 00:00: by mouth [place] 00 every 8 Medical (eight) Branch hours as needed for Cough. cetirizine 2022-0 Yes [id number] 10mg Take 1 U nivers (ZYRTEC) 10 1-29 tablet by ity of mg tablet 00:00: [place] 00 the Medical morning. Branch benzonatate 2022-0 Yes [id number] 200mg Take 2 Univers 100 mg 1-29 capsules ity of capsule 00:00: by mouth [place] 00 every 8 Medical (eight) Branch hours as needed for Cough. cetirizine 2022-0 Yes [id number] 10mg Take 1 U nivers (ZYRTEC) 10 1-29 tablet by ity of mg tablet 00:00: [place] 00 the Medical morning. Branch benzonatate 2023-0 Yes [id number] 200mg Take 2 Univers 100 mg 1-29 capsules ity of capsule 00:00: by mouth [place] 00 every 8 Medical (eight) Branch hours as needed for Cough. cetirizine 2023-0 Yes [id number] 10mg Take 1 U nivers (ZYRTEC) 10 1-29 tablet by ity of mg tablet 00:00: mouth [place] 00 the Medical morning. Branch benzonatate 2023-0 Yes [id number] 200mg Take 2 Univers 100 mg 1-29 capsules ity of capsule 00:00: by mouth [place] 00 every 8 Medical (eight) Branch hours as needed for Cough. cetirizine 3-0 Yes [id number] 10mg Take 1 U nivers (ZYRTEC) 10 1-29 tablet by ity of mg tablet 00:00: mouth [place] 00 the Medical morning. Branch benzonatate 3-0 Yes [id number] 200mg Take 2 Univers 100 mg 1-29 capsules ity of capsule 00:00: by mouth [place] 00 every 8 Medical (eight) Branch hours as needed for Cough. cetirizine 3-0 Yes [id number] 10mg Take 1 U nivers (ZYRTEC) 10 1-29 tablet by ity of mg tablet 00:00: mouth [place] 00 the Medical morning. Branch benzonatate 2023-0 Yes [id number] 200mg Take 2 Univers 100 mg 1-29 capsules ity of capsule 00:00: by mouth [place] 00 every 8 Medical (eight) Branch hours as needed for Cough. cetirizine 2023-0 Yes [id number] 10mg Take 1 U nivers (ZYRTEC) 10 1-29 tablet by ity of mg tablet 00:00: mouth [place] 00 the Medical morning. Branch benzonatate 2023-0 Yes [id number] 200mg Take 2 Univers 100 mg 1-29 capsules ity of capsule 00:00: by mouth [place] 00 every 8 Medical (eight) Branch hours as needed for Cough. cetirizine 2023-0 Yes [id number] 10mg Take 1 U nivers (ZYRTEC) 10 1-29 tablet by ity of mg tablet 00:00: mouth [place] the Medical morning. Branch benzonatate 2023-0 Yes [id number] 200mg Take 2 Univers 100 mg 1-29 capsules ity of capsule 00:00: by mouth [place] 00 every 8 Medical (eight) Branch hours as needed for Cough. cetirizine 2023-0 Yes [id number] 10mg Take 1 U nivers (ZYRTEC) 10 1-29 tablet by ity of mg tablet 00:00: mouth [place] the Medical morning. Branch benzonatate 2023-0 Yes [id number] 200mg Take 2 Univers 100 mg 1-29 capsules ity of capsule 00:00: by mouth [place] 00 every 8 Medical (eight) Branch hours as needed for Cough. cetirizine 2023-0 Yes [id number] 10mg Take 1 U nivers (ZYRTEC) 10 1-29 tablet by ity of mg tablet 00:00: [place] the Medical morning. Branch benzonatate 2023-0 Yes [id number] 200mg Take 2 Univers 100 mg 1-29 capsules ity of capsule 00:00: by mouth [place] 00 every 8 Medical (eight) Branch hours as needed for Cough. cetirizine 2023-0 Yes [id number] 10mg Take 1 U nivers (ZYRTEC) 10 1-29 tablet by ity of mg tablet 00:00: [facility] the Medical morning. Branch benzonatate 2023-0 Yes [id number] 200mg Take 2 Univers 100 mg 1-29 capsules ity of capsule 00:00: by mouth [place] 00 every 8 Medical (eight) Branch hours as needed for Cough. cetirizine 3-0 Yes [id number] 10mg Take 1 U nivers (ZYRTEC) 10 1-29 tablet by ity of mg tablet 00:00: mouth in [facility] 00 the Medical morning. Branch gabapentin 2023-0 Yes 100mg Take 100 Un edita 100 mg 1-23 mg by ity of capsule 00:00: mouth in [place] 00 the Medical morning Branch and 100 mg in the evening. aspirin 81 2023-0 Yes 81mg Take 81 mg U nivers mg EC 1-23 by mouth ity of tablet 00:00: in the [place] 00 morning. Medical Branch gabapentin 2023-0 Yes 100mg Take 100 Un edita 100 mg 1-23 mg by ity of capsule 00:00: mouth in [place] 00 the Medical morning Branch and 100 mg in the evening. aspirin 81 2023-0 Yes 81mg Take 81 mg U nivers mg EC 1-23 by mouth ity of tablet 00:00: in the [place] 00 morning. Medical Branch gabapentin 2023-0 Yes 100mg Take 100 Un edita 100 mg 1-23 mg by ity of capsule 00:00: mouth in [place] 00 the Medical morning Branch and 100 mg in the evening. aspirin 81 2023-0 Yes 81mg Take 81 mg U nivers mg EC 1-23 by mouth ity of tablet 00:00: in the [place] 00 morning. Medical Branch gabapentin 2023-0 Yes 100mg Take 100 Un edita 100 mg 1-23 mg by ity of capsule 00:00: mouth in [place] 00 the Medical morning Branch and 100 mg in the evening. aspirin 81 2023-0 Yes 81mg Take 81 mg U nivers mg EC 1-23 by mouth ity of tablet 00:00: in the [place] 00 morning. Medical Branch gabapentin 2023-0 Yes 100mg Take 100 Un edita 100 mg 1-23 mg by ity of capsule 00:00: mouth in [place] 00 the Medical morning Branch and 100 mg in the evening. aspirin 81 2023-0 Yes 81mg Take 81 mg U nivers mg EC 1-23 by mouth ity of tablet 00:00: in the [place] 00 morning. Medical Branch gabapentin 2023-0 Yes 100mg Take 100 Un edita 100 mg 1-23 mg by ity of capsule 00:00: mouth in [place] 00 the Medical morning Branch and 100 mg in the evening. aspirin 81 2023-0 Yes 81mg Take 81 mg U nivers mg EC 1-23 by mouth ity of tablet 00:00: in the [place] 00 morning. Medical Branch gabapentin 2023-0 Yes 100mg Take 100 Un edita 100 mg 1-23 mg by ity of capsule 00:00: mouth in [place] 00 the Medical morning Branch and 100 mg in the evening. aspirin 81 2023-0 Yes 81mg Take 81 mg U nivers mg EC 1-23 by mouth ity of tablet 00:00: in the [place] 00 morning. Medical Branch gabapentin 2023-0 Yes 100mg Take 100 Un edita 100 mg 1-23 mg by ity of capsule 00:00: mouth in [place] 00 the Medical morning Branch and 100 mg in the evening. aspirin 81 2023-0 Yes 81mg Take 1 Unive rs mg EC 1-23 tablet by ity of tablet 00:00: mouth in [place] 00 the Medical morning. Branch gabapentin 2023-0 Yes 100mg Take 100 Un edita 100 mg 1-23 mg by ity of capsule 00:00: mouth in [place] 00 the Medical morning Branch and 100 mg in the evening. aspirin 81 2023-0 Yes 81mg Take 1 Unive rs mg EC 1-23 tablet by ity of tablet 00:00: mouth in [place] 00 the Medical morning. Branch gabapentin 2023-0 Yes 100mg Take 100 Un edita 100 mg 1-23 mg by ity of capsule 00:00: mouth in [place] 00 the Medical morning Branch and 100 mg in the evening. aspirin 81 2023-0 Yes 81mg Take 1 Unive rs mg EC 1-23 tablet by ity of tablet 00:00: mouth in [place] 00 the Medical morning. Branch gabapentin 2023-0 Yes 100mg Take 1 Univ ers 100 mg 1-23 capsule by ity of capsule 00:00: mouth in [place] 00 the Medical morning Branch and 1 capsule in the evening. aspirin 81 2023-0 Yes 81mg Take 1 Unive rs mg EC 1-23 tablet by ity of tablet 00:00: mouth in [place] 00 the Medical morning. Branch gabapentin 2023-0 Yes 100mg Take 1 Univ ers 100 mg 1-23 capsule by ity of capsule 00:00: mouth in [place] 00 the Medical morning Branch and 1 capsule in the evening. aspirin 81 2023-0 Yes 81mg Take 1 Unive rs mg EC 1-23 tablet by ity of tablet 00:00: mouth in [place] 00 the Medical morning. Branch gabapentin 2023-0 Yes 100mg Take 1 Univ ers 100 mg 1-23 capsule by ity of capsule 00:00: mouth in [place] 00 the Medical morning Branch and 1 capsule in the evening. aspirin 81 2023-0 Yes 81mg Take 1 Unive rs mg EC 1-23 tablet by ity of tablet 00:00: mouth in [place] 00 the Medical morning. Branch montelukast 2021-0 Yes Take by Uni vers sodium 9-07 mouth. ity of (SINGULAIR 13:58: [place] ORAL) 45 Medical Branch ticagrelor 0 Yes Take by Univ ers (BRILINTA 9-07 mouth. ity of ORAL) 13:58: [address] Branch furosemide 0 Yes Take by Univ ers (LASIX 9-07 mouth. ity of ORAL) 13:58: [address] Branch carvedilol 0 Yes Take by Univ ers (COREG 9-07 mouth. ity of ORAL) 13:58: [address] Branch montelukast 0 Yes Take by Uni vers sodium 9-07 mouth. ity of (SINGULAIR 13:58: [place] ORAL) Medical Branch ticagrelor 0 Yes Take by Univ ers (BRILINTA 9-07 mouth. ity of ORAL) 13:58: [address] Branch furosemide 0 Yes Take by Univ ers (LASIX 9-07 mouth. ity of ORAL) 13:58: [address] Branch carvedilol Yes Take by Univ ers (COREG 9-07 mouth. ity of ORAL) 13:58: [address] montelukast 0 Yes Take by Uni vers sodium 9-07 mouth. ity of (SINGULAIR 13:58: [place] ORAL) Medical Branch ticagrelor Yes Take by Univ ers (BRILINTA 9-07 mouth. ity of ORAL) 13:58: [address] Branch furosemide 0 Yes Take by Univ ers (LASIX 9-07 mouth. ity of ORAL) 13:58: [address] Branch carvedilol 0 Yes Take by Univ ers (COREG 9-07 mouth. ity of ORAL) 13:58: [address] montelukast 0 Yes Take by Uni vers sodium 9-07 mouth. ity of (SINGULAIR 13:58: [place] ORAL) Medical Branch ticagrelor 0 Yes Take by Univ ers (BRILINTA 9-07 mouth. ity of ORAL) 13:58: [address] Branch furosemide 0 Yes Take by Univ ers (LASIX 9-07 mouth. ity of ORAL) 13:58: [address] Branch carvedilol 0 Yes Take by Univ ers (COREG 9-07 mouth. ity of ORAL) 13:58: [address] montelukast 2021-0 Yes Take by Uni vers sodium 9-07 mouth. ity of (SINGULAIR 13:58: [place] ORAL) [address] [place] [address] Branch ticagrelor 0 Yes Take by Univ ers (BRILINTA 9-07 mouth. ity of ORAL) 13:58: [address] furosemide 0 Yes Take by Univ ers (LASIX 9-07 mouth. ity of ORAL) 13:58: [address] Branch carvedilol 0 Yes Take by Univ ers (COREG 9-07 mouth. ity of ORAL) 13:58: [address] montelukast 0 Yes Take by Uni vers sodium 9-07 mouth. ity of (SINGULAIR 13:58: [place] ORAL) [address] [place] [address] Branch ticagrelor 0 Yes Take by Univ ers (BRILINTA 9-07 mouth. ity of ORAL) 13:58: [address] furosemide 0 Yes Take by Univ ers (LASIX 9-07 mouth. ity of ORAL) 13:58: [address] carvedilol 0 Yes Take by Univ ers (COREG 9-07 mouth. ity of ORAL) 13:58: [address] montelukast 0 Yes Take by Uni vers sodium 9-07 mouth. ity of (SINGULAIR 13:58: [place] ORAL) [address] [place] [address] ticagrelor 0 Yes Take by Univ ers (BRILINTA 9-07 mouth. ity of ORAL) 13:58: [address] furosemide 0 Yes Take by Univ ers (LASIX 9-07 mouth. ity of ORAL) 13:58: [address] carvedilol 0 Yes Take by Univ ers (COREG 9-07 mouth. ity of ORAL) 13:58: [address] montelukast 2021-0 Yes Take by Uni vers sodium 9-07 mouth. ity of (SINGULAIR 13:58: [place] ORAL) [address] [place] [address] Branch ticagrelor 0 Yes Take by Univ ers (BRILINTA 9-07 mouth. ity of ORAL) 13:58: [address] furosemide 2021-0 Yes Take by Univ ers (LASIX 9-07 mouth. ity of ORAL) 13:58: [address] Branch carvedilol 0 Yes Take by Univ ers (COREG 9-07 mouth. ity of ORAL) 13:58: [address] montelukast 0 Yes Take by Uni vers sodium 9-07 mouth. ity of (SINGULAIR 13:58: [place] ORAL) [address] [place] [address] Branch ticagrelor Yes Take by Univ ers (BRILINTA 9-07 mouth. ity of ORAL) 13:58: [address] furosemide 0 Yes Take by Univ ers (LASIX 9-07 mouth. ity of ORAL) 13:58: [address] Branch carvedilol 0 Yes Take by Univ ers (COREG 9-07 mouth. ity of ORAL) 13:58: [address] montelukast Yes Take by Uni vers sodium 9-07 mouth. ity of (SINGULAIR 13:58: [place] ORAL) [address] [place] [address] Branch furosemide Yes Take by Univ ers (LASIX 9-07 mouth. ity of ORAL) 13:58: [address] carvedilol Yes Take by Univ ers (COREG 9-07 mouth. ity of ORAL) 13:58: [address] montelukast Yes Take by Uni vers sodium 9-07 mouth. ity of (SINGULAIR 13:58: [place] ORAL) [address] [place] [address] Branch furosemide 0 Yes Take by Univ ers (LASIX 9-07 mouth. ity of ORAL) 13:58: [address] carvedilol 0 Yes Take by Univ ers (COREG 9-07 mouth. ity of ORAL) 13:58: [address] montelukast 0 Yes Take by Uni vers sodium 9-07 mouth. ity of (SINGULAIR 13:58: [place] ORAL) Medical Branch furosemide 0 Yes Take by Univ ers (LASIX 9-07 mouth. ity of ORAL) 13:58: [address] carvedilol 0 Yes Take by Univ ers (COREG 9-07 mouth. ity of ORAL) 13:58: [address] montelukast 0 Yes Take by Uni vers sodium 9-07 mouth. ity of (SINGULAIR 13:58: [place] ORAL) Medical Branch ticagrelor Yes Take by Univ ers (BRILINTA 9-07 mouth. ity of ORAL) 13:58: [place] [address] Medical Branch furosemide Yes Take by [facility] ers (LASIX 07-27 mouth. ity of ORAL) 13:58: [place] [address] Medical Branch carvedilol Yes Take by Univ ers (COREG 9- mouth. ity of ORAL) 13:58: [place] [address] Medical Branch montelukast Yes Take by Uni vers sodium 9 mouth. ity of (SINGULAIR 13:58: [place] ORAL) Medical Branch ticagrelor Yes Take by Univ ers (BRILINTA 9 mouth. ity of ORAL) 13:58: [place] [address] Medical Branch furosemide Yes Take by Univ ers (LASIX 9 mouth. ity of ORAL) 13:58: [address] Branch carvedilol Yes Take by [facility] ers (COREG 9-07 mouth. ity of ORAL) 13:58: [address] Branch Nitrofurant 202- No [id number] 100mg Take 1 Univers oin&Nit. 07-27 capsule by ity of Macrocryst 00:00: 04:59 mouth [place] (MACROBID) 00 :00 the Medical 100 mg morning Branch capsule and 1 capsule in the evening. Take with meals. Do all this for 5 days. Glucagon Glucagon 2020-11- No Glucagon Emergency 1 Emergency 1 2-15 -13 Emergency MG MG 00:00: 00:00 1 MG 00 :00 Glucagon Glucagon 2020-11- No Glucagon Emergency 1 Emergency 1 2-15 -13 Emergency MG MG 00:00: 00:00 1 MG 00 :00 Glucagon Glucagon 2020-11- No Glucagon Emergency 1 Emergency 1 2-15 06-13 Emergency MG MG 00:00: 00:00 1 MG 00 :00 nitroglycer 2020-11 Yes TAKE [address] [facility] [address] [facility]T [facility] (NITROSTAT) 00:00: UDER THE La dical 0.4 MG SL 00 TONGUE Center tablet EVERY 5 MIN NEEDED FOR CHEST PAIN NO MORE THAN 3 DOSES IN 15MIN CALL 911 IF PAIN UNRELEVED 5 MIN AFTER 1ST DOSE. nitroglycer 2020-11 Yes TAKE [address] [facility] [facility] 1-30 TABLET [facility] (NITROSTAT) 00:00: UDER THE Me dical 0.4 MG SL 00 TONGUE Center tablet EVERY 5 MIN NEEDED FOR CHEST PAIN NO MORE THAN 3 DOSES IN 15MIN CALL 911 IF PAIN UNRELEVED 5 MIN AFTER 1ST DOSE. nitroglycer 2020-11 Yes TAKE [address] [facility] in 1-30 TABLET [facility] (NITROSTAT) 00:00: UDER THE Me dical 0.4 MG SL 00 TONGUE Center tablet EVERY 5 MIN NEEDED FOR CHEST PAIN NO MORE THAN 3 DOSES IN 15MIN CALL 911 IF PAIN UNRELEVED 5 MIN AFTER 1ST DOSE. losartan 2020-11 Yes TAKE [address] [facility] (COZAAR) 25 1-10 TABLET BY Jose Luis es MG tablet 00:00: MOUTH Medical 00 EVERY DAY Center losartan 2020-11 Yes TAKE [address] [facility] (COZAAR) 25 1-10 TABLET BY [place] Luis es MG tablet 00:00: MOUTH Medical 00 EVERY DAY Center losartan 2020-11 Yes TAKE [address] [facility] (COZAAR) 25 1-10 TABLET BY Jose Luis es MG tablet 00:00: MOUTH Medical 00 EVERY DAY Center abemaciclib 2020-11 Yes 100mg QD Take [address] (Verzenio) 0-07 mg by [facility] 100 mg Tab 09:56: mouth Medica l 15 daily. Center carvediloL 2020-11 Yes 12.5mg Take 12.5 [...] mouth Medic al hr capsule 15 daily. Center abemaciclib 2020-11 Yes 100mg QD Take [address] (Verzenio) 0-07 mg by [facility] 100 mg Tab 09:56: mouth Medica l 15 daily. Center carvediloL 2020-11 Yes 12.5mg Take 12.5 [...] MG tablet 09:56: daily. Medica l 15 [place] venlafaxine 2020-11 Yes 225mg QD Take [address] (EFFEXOR-XR 0-07 mg by [facility] ) 150 MG 24 09:56: mouth Medic al hr capsule 15 daily. [place] carvediloL 2020-11 Yes 12.5mg Take 12.5 [facility] [...] MG tablet 09:56: daily. Medica l 15 [place] venlafaxine 2020-11 Yes 225mg QD Take [address] (EFFEXOR-XR 0-07 mg by [facility] ) 150 MG 24 09:56: mouth Medic al hr capsule 15 daily. [place] abemaciclib 2020-11 Yes 100mg QD Take [address] (Verzenio) 0-07 mg by [facility] 100 mg Tab 09:56: mouth Medica l 15 daily. [place] Dexcom G6 Dexcom G6 1-0 No Dexcom G6 Transmitter Transmitter 3-24 Transmitte - - 00:00: r - 00 Dexcom G6 Dexcom G6 2020-0 No Dexcom G6 Sensor - Sensor - 3-24 Sensor - 00:00: 00 Dexcom G6 Dexcom G6 1-0 No Dexcom G6 Transmitter Transmitter 3-24 Transmitte - - 00:00: r - 00 Dexcom G6 Dexcom G6 1-0 No Dexcom G6 Sensor - Sensor - 3-24 Sensor - 00:00: 00 Dexcom G6 Dexcom G6 1-0 No Dexcom G6 Transmitter Transmitter 3-24 Transmitte - - 00:00: r - 00 Dexcom G6 Dexcom G6 2020-0 No Dexcom G6 Sensor - Sensor - 3-24 Sensor - 00:00: 00 Dexcom G6 Dexcom G6 1-0 No Dexcom G6 Transmitter Transmitter 3-24 Transmitte - - 00:00: r - 00 Dexcom G6 Dexcom G6 1-0 No Dexcom G6 Sensor - Sensor - 3-24 Sensor - 00:00: 00 Dexcom G6 Dexcom G6 2020-0 No Dexcom G6 Sensor - Sensor - 3-24 Sensor - 00:00: 00 Dexcom G6 Dexcom G6 1-0 No Dexcom G6 Transmitter Transmitter 3-24 Transmitte - - 00:00: r - 00 Dexcom G6 Dexcom G6 2020-0 No Dexcom G6 Sensor - Sensor - 3-24 Sensor - 00:00: 00 Dexcom G6 Dexcom G6 1-0 No Dexcom G6 Transmitter Transmitter 3-24 Transmitte - - 00:00: r - 00 Dexcom G6 Dexcom G6 1-0 No Dexcom G6 Transmitter Transmitter 3-24 Transmitte - - 00:00: r - 00 Dexcom G6 Dexcom G6 1-0 No Dexcom G6 Sensor - Sensor - 3-24 Sensor - 00:00: 00 Dexcom G6 Dexcom G6 1-0 No Dexcom G6 Sensor - Sensor - 3-24 Sensor - 00:00: 00 Dexcom G6 Dexcom G6 1-0 No Dexcom G6 Transmitter Transmitter 3-24 Transmitte - - 00:00: r - 00 Dexcom G6 Dexcom G6 1-0 No Dexcom G6 Sensor - Sensor - 3-24 Sensor - 00:00: 00 Dexcom G6 Dexcom G6 2021-0 No Dexcom G6 Transmitter Transmitter 3-24 Transmitte [...] Jose Angel 110 units C ommon 3-03 [facility] 00:00: - [facility] 00 [facility] Valsartan Valsartan 2020-0 Yes Jose Angel 1 tablet Common 12-12 [facility] 00:00: - [facility] 00 [facility] Valsartan Valsartan 2020-0 No 1{table QD [...] 1-23 t} 80 MG 00:00: 00 insulin 2014-0 Yes For use in [facility] lispro, 4-02 insulin ity of human, 00:00: pump, [facility] (HUMALOG) 00 to 100 Medical 100 unit/mL units Branch injection daily. insulin 2015-0 Yes For use in Univ ers lispro, 4-02 insulin ity of human, 00:00: pump, up [place] (HUMALOG) 00 to 100 Medical 100 unit/mL units Branch injection daily. insulin 2015-0 Yes For use in [facility] ers lispro, 4-02 insulin ity of human, 00:00: pump, up [place] (HUMALOG) 00 to 100 Medical 100 unit/mL units Branch injection daily. insulin 2015-0 Yes For use in [facility] ers lispro, 4-02 insulin ity of human, 00:00: pump, up [place] (HUMALOG) 00 to 100 Medical 100 unit/mL units Branch injection daily. insulin 2015-0 Yes For use in [facility] ers lispro, 4-02 insulin ity of human, 00:00: pump, up [place] (HUMALOG) 00 to 100 Medical 100 unit/mL units Branch injection daily. insulin 2015-0 Yes For use in [facility] ers lispro, 4-02 insulin ity of human, 00:00: pump, up [place] (HUMALOG) 00 to 100 Medical 100 unit/mL units Branch injection daily. insulin 2015-0 Yes For use in [facility] ers lispro, 4-02 insulin ity of human, 00:00: pump, up [place] (HUMALOG) 00 to 100 Medical 100 unit/mL units Branch injection daily. insulin 2015-0 Yes For use in [facility] ers lispro, 4-02 insulin ity of human, 00:00: pump, up [place] (HUMALOG) 00 to 100 Medical 100 unit/mL units Branch injection daily. insulin 2015-0 Yes For use in [facility] ers lispro, 4-02 insulin ity of human, 00:00: pump, up [place] (HUMALOG) 00 to 100 Medical 100 unit/mL units Branch injection daily. insulin 2015-0 Yes For use in [facility] ers lispro, 4-02 insulin ity of human, 00:00: pump, up [place] (HUMALOG) 00 to 100 Medical 100 unit/mL units Branch injection daily. insulin 2015-0 Yes For use in [facility] ers lispro, 4-02 insulin ity of human, 00:00: pump, up [place] (HUMALOG) 00 to 100 Medical 100 unit/mL units Branch injection daily. insulin 2015-0 Yes For use in [facility] ers lispro, 4-02 insulin ity of human, 00:00: pump, up [place] (HUMALOG) 00 to 100 Medical 100 unit/mL units Branch injection daily. insulin 2014-0 Yes For use in [facility] ers lispro, 4- insulin ity of human, 00:00: pump, up [place] (HUMALOG) 00 to 100 Medical 100 unit/mL units Branch injection daily. insulin 2015-0 Yes For use in [facility] ers lispro, 4-02 insulin ity of human, 00:00: pump, [facility] (HUMALOG) 00 to 100 Medical 100 unit/mL units Branch injection daily. insulin 2014-0 Yes For use in [facility] ers lispro, 4- insulin ity of human, 00:00: pump, up [place] (HUMALOG) 00 to 100 Medical 100 unit/mL units Branch injection daily. insulin 2014-0 Yes For use in [facility] ers lispro, 4- insulin ity of human, 00:00: pump, up [place] (HUMALOG) 00 to 100 Medical 100 unit/mL units Branch injection daily. blood sugar 2013-11 Yes Qid Use as Univers diagnostic 1-24 directed, ity of (ONE TOUCH 00:00: DX:250.51 [place] VERIO) 00 Medical strip Branch blood sugar 2013-11 Yes Qid Use as Univers diagnostic 1-24 directed, ity of (ONE TOUCH 00:00: DX:250.51 [place] VERIO) 00 Medical strip Branch blood sugar 2013-11 Yes Qid Use as Univers diagnostic 1-24 directed, ity of (ONE TOUCH 00:00: DX:250.51 [place] VERIO) 00 Medical strip Branch blood sugar 2013-11 Yes Qid Use as Univers diagnostic 1-24 directed, ity of (ONE TOUCH 00:00: DX:250.51 [place] VERIO) 00 Medical strip Branch blood sugar 2013-11 Yes Qid Use as Univers diagnostic 1-24 directed, ity of (ONE TOUCH 00:00: DX:250.51 [place] VERIO) 00 Medical strip Branch blood sugar 2013-11 Yes Qid Use as Univers diagnostic 1-24 directed, ity of (ONE TOUCH 00:00: DX:250.51 [place] VERIO) 00 Medical strip Branch blood sugar 2013-11 Yes Qid Use as Univers diagnostic 1-24 directed, ity of (ONE TOUCH 00:00: DX:250.51 [place] VERIO) 00 Medical strip Branch blood sugar 2013-11 Yes Qid Use as Univers diagnostic 1-24 directed, ity of (ONE TOUCH 00:00: DX:250.51 [place] VERIO) 00 Medical strip Branch blood sugar 2013-11 Yes Qid Use as Univers diagnostic 1-24 directed, ity of (ONE TOUCH 00:00: DX:250.51 [place] VERIO) 00 Medical strip Branch blood sugar 2013-11 Yes Qid Use as Univers diagnostic 1-24 directed, ity of (ONE TOUCH 00:00: DX:250.51 [place] VERIO) 00 Medical strip Branch blood sugar 2013-11 Yes Qid Use as Univers diagnostic 1-24 directed, ity of (ONE TOUCH 00:00: DX:250.51 [place] VERIO) 00 Medical strip Branch blood sugar 2013-11 Yes Qid Use as Univers diagnostic 1-24 directed, ity of (ONE TOUCH 00:00: DX:250.51 [place] VERIO) 00 Medical strip Branch blood sugar 2013-11 Yes Qid Use as Univers diagnostic 1-24 directed, ity of (ONE TOUCH 00:00: DX:250.51 [place] VERIO) 00 Medical strip Branch blood sugar 2013-11 Yes Qid Use as Univers diagnostic 1-24 directed, ity of (ONE TOUCH 00:00: DX:250.51 [place] VERIO) 00 Medical strip Branch blood sugar 2013-11 Yes Qid Use as Univers diagnostic 1-24 directed, ity of (ONE TOUCH 00:00: DX:250.51 [place] VERIO) 00 Medical strip Branch blood sugar 2013-11 Yes Qid Use as Univers diagnostic 1-24 directed, ity of (ONE TOUCH 00:00: DX:250.51 [place] VERIO) 00 Medical [facility] Branch insulin Yes For use in [facility] ers aspart 9-12 insulin ity of RAPID 00:00: pump, up [place] (NOVOLOG) 00 to 100 Medical 100 unit/mL units Branch injection daily. insulin Yes For use in Univ ers aspart 9-12 insulin ity of RAPID 00:00: pump, up [place] (NOVOLOG) 00 to 100 Medical 100 unit/mL units Branch injection daily. insulin Yes For use in [facility] ers aspart 9-12 insulin ity of RAPID 00:00: pump, up [place] (NOVOLOG) 00 to 100 Medical 100 unit/mL [...] insulin ity of RAPID 00:00: pump, up [place] (NOVOLOG) 00 to 100 Medical 100 unit/mL [...] times daily before meals. insulin 2014-0 Yes 20U inject 20 Unive rs glargine 6-23 Units ity of (LANTUS 00:00: under the [place] U-100) 100 00 skin at Medica l unit/mL bedtime. Branch injection insulin 2014-0 Yes 20U inject 20 Unive rs glargine [...] daily [place] gauge Misc 00 Medical Branch Blood-Gluco Yes Univer s se Meter 2-25 ity of (ONE TOUCH 00:00: [place] VERIO IQ) 00 Medical Kit Branch lancets Yes To be used Univ ers (ONE TOUCH 2-25 up to 6x ity o f DELICA) 33 00:00: daily [place] gauge Misc 00 Medical Branch Blood-Gluco Yes Univer s se Meter 2-25 ity of (ONE TOUCH 00:00: [place] VERIO IQ) 00 Medical Kit Branch lancets Yes To be used Univ ers (ONE TOUCH 2-25 up to 6x ity o f DELICA) 33 00:00: daily [place] gauge Misc 00 Medical Branch Blood-Gluco Yes Univer s se Meter 2-25 ity of (ONE TOUCH 00:00: [place] VERIO IQ) 00 Medical Kit Branch Blood-Gluco Yes Univer s se Meter 2-25 ity of (ONE TOUCH 00:00: [place] VERIO IQ) 00 Medical Kit Branch lancets Yes To be used Univ ers (ONE TOUCH 2-25 up to 6x ity o f DELICA) 33 00:00: daily [place] gauge [facility] Medical Branch lancets Yes To be used Univ ers (ONE TOUCH 2-25 up to 6x ity o f DELICA) 33 00:00: daily [facility] Medical Branch Blood-Gluco Yes Univer s se Meter 2-25 ity of (ONE TOUCH 00:00: [place] VERIO IQ) Medical Kit Branch lancets Yes To be used Univ ers (ONE TOUCH 2-25 up to 6x ity o f DELICA) 33 00:00: daily [facility] Medical Branch Blood-Gluco Yes Univer s se Meter 2-25 ity of (ONE TOUCH 00:00: [place] VERIO IQ) Medical Kit Branch lancets Yes To be used Univ ers (ONE TOUCH 2-25 up to 6x ity o f DELICA) 33 00:00: daily [facility] Medical Branch Blood-Gluco Yes Univer s se Meter 2-25 ity of (ONE TOUCH 00:00: [place] VERIO IQ) Medical Kit Branch lancets Yes To be used Univ ers (ONE TOUCH 2-25 up to 6x ity o f DELICA) 33 00:00: daily [facility] Medical Branch Blood-Gluco Yes Univer s se Meter 2-25 ity of (ONE TOUCH 00:00: [place] VERIO IQ) Medical Kit Branch Blood-Gluco Yes Univer s se Meter 2-25 ity of (ONE TOUCH 00:00: [place] VERIO IQ) Medical Kit Branch lancets Yes To be used Univ ers (ONE TOUCH 2-25 up to 6x ity o f DELICA) 33 00:00: daily [facility] Medical Branch lancets Yes To be used Univ ers (ONE TOUCH 2-25 up to 6x ity o f DELICA) 33 00:00: daily [facility] Medical Branch Blood-Gluco 2013-0 Yes Univer s se Meter 2-25 ity [...] f DELICA) 33 00:00: daily [place] gauge [facility] Medical Branch Blood-Gluco Yes Univer s se Meter 2-25 ity of (ONE TOUCH 00:00: [place] VERIO IQ) Medical Kit Branch lancets Yes To be used Univ ers (ONE TOUCH 2-25 up to 6x ity o f DELICA) 33 00:00: daily [facility] Medical Branch Blood-Gluco Yes Univer s se Meter 2-25 ity of (ONE TOUCH 00:00: [place] VERIO IQ) Medical Kit Branch lancets Yes To be used Univ ers (ONE TOUCH 2-25 up to 6x ity o f DELICA) 33 00:00: daily [facility] Medical Branch Blood-Gluco Yes Univer s se Meter 2-25 ity of (ONE TOUCH 00:00: [place] VERIO IQ) Medical Kit Branch lancets Yes To be used Univ ers (ONE TOUCH 2-25 up to 6x ity o f DELICA) 33 00:00: daily [facility] Medical Branch Blood-Gluco Yes Univer s se [...] Angel 1 spray in Common Propionate Propionate [place] each Sp steve nostril - [facility] Ultram Ultram Yes Jose Angel 1 tablet Common [place] as needed [facility] Ondansetron Ondansetron Yes Jose Angel TAKE 1 Common [place] TABLET BY Spirit MOUTH - [facility] EVERY 4 - [facility] 6 HOURS [facility] NEEDED FOR Medical NAUSEA Center Verzenio Verzenio Yes Jose Angel 1 tablet Co mmon [place] [facility] Venlafaxine Venlafaxine Yes Jose Angel 1 capsule Common HCl ER HCl ER [place] with food Sp[facility] Vitamin D3 Vitamin D3 Yes Jose Angel TAKE ONE Common [place] CAPSULE BY [facility] MOUTH - [facility] EVERY WEEK [facility] Vitamin D3 Vitamin D3 No Vitamin D3 33685 UNIT 83389 UNIT 46811 UNIT HumaLOG 100 HumaLOG 100 No QD [...] Dexcom G6 Dexcom G6 No Dexcom G6 Router Setter - Router Setter - Router Setter - Venlafaxine Venlafaxine No Venlafaxin HCl ER 225 HCl ER 225 e HCl ER MG MG 225 MG Ultram 50 Ultram 50 No 1{table TID Ultram 50 MG MG t_as_ne MG eded} Vitamin D3 Vitamin D3 No Vitamin D3 26713 UNIT 89485 UNIT 84029 UNIT HumaLOG 100 HumaLOG 100 No QD [...] Dexcom G6 Dexcom G6 No Dexcom G6 Router Setter - Router Setter - Router Setter - Vitamin D3 Vitamin D3 No Vitamin D3 57982 UNIT 31496 UNIT 78404 UNIT HumaLOG 100 HumaLOG 100 No QD [...] Dexcom G6 Dexcom G6 No Dexcom G6 Router Setter - Router Setter - Router Setter - Vitamin D3 Vitamin D3 No Vitamin D3 92409 UNIT 61408 UNIT 62291 UNIT HumaLOG 100 HumaLOG 100 No QD [...] Dexcom G6 Dexcom G6 No Dexcom G6 Router Setter - Router Setter - Router Setter - Venlafaxine Venlafaxine No Venlafaxin HCl ER 225 HCl ER 225 e HCl ER MG MG 225 MG Vitamin D3 Vitamin D3 No Vitamin D3 02975 UNIT 77998 UNIT 90054 UNIT HumaLOG 100 HumaLOG 100 No HumaLOG [...] Dexcom G6 Dexcom G6 No Dexcom G6 Router Setter - Router Setter - Router Setter - Venlafaxine Venlafaxine No Venlafaxin HCl ER 225 HCl ER 225 e HCl ER MG MG 225 MG Vitamin D3 Vitamin D3 No Vitamin D3 82284 UNIT 04734 UNIT 83992 UNIT HumaLOG 100 HumaLOG 100 No HumaLOG [...] Vitamin D3 Vitamin D3 No Vitamin D3 60267 UNIT 72582 UNIT 13953 UNIT Verzenio Verzenio No 1{table Verzenio 100 MG 100 MG t} 100 MG Dexcom G6 Dexcom G6 No Dexcom G6 Router Setter - Router Setter - Router Setter - Furosemide Furosemide No 1{table QD Furosemide [...] Vitamin D3 Vitamin D3 No Vitamin D3 06784 UNIT 68364 UNIT 87400 UNIT Atorvastati Atorvastati No 1{table QD Atorvastat [...] Dexcom G6 Dexcom G6 No Dexcom G6 Router Setter - Router Setter - Router Setter - Furosemide Furosemide No 1{table QD Furosemide 40 MG 40 MG t} 40 MG Vitamin D3 Vitamin D3 No Vitamin D3 30807 UNIT 72231 UNIT 18535 UNIT Atorvastati Atorvastati No 1{table QD Atorvastat [...] Dexcom G6 Dexcom G6 No Dexcom G6 Router Setter - Router Setter - Router Setter - Fluticasone Fluticasone No 1{spray BID Fluticason Propionate Propionate _in_eac e 50 MCG/ACT 50 MCG/ACT h_nostr Propionate il} 50 MCG/ACT Ondansetron Ondansetron No Ondansetro 4 MG 4 MG n 4 MG Vitamin D3 Vitamin D3 No Vitamin D3 25844 UNIT 44677 UNIT 18286 UNIT Venlafaxine Venlafaxine No 1{capsu QD Venlafaxin HCl ER 225 HCl ER 225 le_with e HCl ER MG MG _food} 225 MG Dexcom G6 Dexcom G6 No Dexcom G6 Router Setter - Router Setter - Router Setter - Ultram 50 Ultram 50 No 1{table [...] Dexcom G6 Dexcom G6 No Dexcom G6 Router Setter - Router Setter - Router Setter - Ondansetron Ondansetron No Ondansetro 4 MG [...] Vitamin D3 Vitamin D3 No Vitamin D3 29959 UNIT 57810 UNIT 99110 UNIT HumaLOG 100 HumaLOG 100 No QD HumaLOG UNIT/ML UNIT/ML 100 UNIT/ML Fluticasone Fluticasone No 1{spray BID Fluticason Propionate Propionate _in_eac e 50 MCG/ACT 50 MCG/ACT h_nostr Propionate il} 50 MCG/ACT Dexcom G6 Dexcom G6 No Dexcom G6 Router Setter - Router Setter - Router Setter - Venlafaxine Venlafaxine No Venlafaxin HCl ER 225 HCl ER 225 e HCl ER MG MG 225 MG Ultram 50 Ultram 50 No 1{table TID Ultram 50 MG MG t_as_ne MG eded} Vitamin D3 Vitamin D3 No Vitamin D3 15032 UNIT 67627 UNIT 92747 UNIT HumaLOG 100 HumaLOG 100 No QD [...] Dexcom G6 Dexcom G6 No Dexcom G6 Router Setter - Router Setter - Router Setter - Venlafaxine Venlafaxine No Venlafaxin HCl ER 225 HCl ER 225 e HCl ER MG MG 225 MG Ultram 50 Ultram 50 No 1{table TID Ultram 50 MG MG t_as_ne MG eded} Vital Signs Vital Name Observation Time Observation Value Comments Source Systolic blood 2023-10-06 15:08:00 116 mm[Hg] Univer [facility]ity of [facility] Diastolic blood 2023-10-06 15:08:00 60 [facility]Hg[facility] 2023-10-06 15:08:00 101 /min [facility] Body temperature 2023-10-06 15:08:00 36.22 [facility] Body height 2023-10-06 15:08:00 160 cm [facility] Body weight 2023-10-06 15:08:00 94.802 kg per patient [facility] BMI 2023-10-06 15:08:00 37.02 kg/m2 [facility] Oxygen saturation 2023-10-06 15:08:00 96 /min Uni versity of in Arterial blood [facility] by Pulse oximetry Branch Systolic blood 2023-06-16 23:56:00 118 mm[Hg] Univer [facility] of [facility] Diastolic blood 2023-06-16 23:56:00 75 mm[Hg] Unive rsity of [facility] Heart rate 2023-06-16 23:56:00 92 /min [facility] Body temperature 2023-06-16 23:56:00 36.11 Leah [facility] Respiratory rate 2023-06-16 23:56:00 18 /min [facility] Body height 2023-06-16 23:56:00 161.3 cm [facility] Body weight 2023-06-16 23:56:00 101.691 kg [facility] [place] [facility] BMI 2023-06-16 23:56:00 39.09 kg/m2 [facility] [place] [facility] Oxygen saturation 2023-06-16 23:56:00 97 /min Uni versity of in Ar[facility]ial blood [place] [facility] Pulse oximetry Branch Systolic blood 2023-04-18 15:51:00 126 mm[Hg] [facility]iver [facility] Diastolic blood 2023-04-18 15:51:00 77 mm[Hg] Unive [facility]ity [facility] Heart rate 2023-04-18 15:51:00 98 /min [facility] Body temperature 2023-04-18 15:51:00 36.61 Leah [facility] [place] [facility] Respiratory rate 2023-04-18 15:51:00 16 /min [facility] Body height 2023-04-18 15:51:00 161.3 cm [facility] Body weight 2023-04-18 15:51:00 101.107 kg [facility] BMI 2023-04-18 15:51:00 38.87 kg/m2 [facility] Oxygen saturation 2023-04-18 15:51:00 97 /min Uni versity of in Arterial blood [place] [facility] by Pulse oximetry Branch Systolic blood 2023-01-17 17:41:00 129 mm[Hg] [facility] Diastolic blood 2023-01-17 17:41:00 78 mm[Hg] Unive [facility]ity [facility] Heart rate 2023-01-17 17:41:00 90 /min [facility] Body temperature 2023-01-17 17:41:00 37.28 Leah [facility] [place] [facility] Respiratory rate 2023-01-17 17:41:00 16 /min [facility] Body height 2023-01-17 17:41:00 162.6 cm [facility] Body weight 2023-01-17 17:41:00 98.629 kg [facility] BMI 2023-01-17 17:41:00 37.32 kg/m2 [facility] Oxygen saturation 2023-01-17 17:41:00 97 /min Uni versity of in Arterial blood [place] [facility] by Pulse oximetry [facility] Systolic blood 2022-12-18 18:31:00 118 mm[Hg] [facility] Diastolic blood 2022-12-18 18:31:00 73 mm[Hg] [facility]ive [facility]ity [facility] Heart rate 2022-12-18 18:31:00 102 /min [facility] Body temperature 2022-12-18 18:31:00 36.5 Leah [facility] [place] [facility] Respiratory rate 2022-12-18 18:31:00 18 /min Univ ersity of [facility] Body height 2022-12-18 18:31:00 162.6 cm [facility] Body weight 2022-12-18 18:31:00 100.245 kg [facility] BMI 2022-12-18 18:31:00 37.93 kg/m2 [facility] Oxygen saturation 2022-12-18 18:31:00 96 /min Uni versity of in Arterial blood [facility] by Pulse oximetry Branch Systolic blood 2022-07-27 18:58:00 119 mm[Hg] [facility]iver [facility]ity [facility] Diastolic blood 2022-07-27 18:58:00 75 mm[Hg] Unive rsity [facility] Heart rate 2022-07-27 18:58:00 88 /min [facility] Body temperature 2022-07-27 18:58:00 36.72 Leah [facility] [place] [facility] Respiratory rate 2022-07-27 18:58:00 18 /min [facility] Body height 2022-07-27 18:58:00 160 cm [facility] Body weight 2022-07-27 18:58:00 102.967 kg [facility] [place] [facility] BMI 2022-07-27 18:58:00 40.21 kg/m2 [facility] [place] [facility] Oxygen saturation 2022-07-27 18:58:00 97 /min Uni versity of in Arterial blood [facility] by Pulse oximetry Branch height 2021-11-02 09:20:00 65 [in_i] [facility] weight 2021-11-02 09:20:00 236 [lb_av] [facility] temperature 2021-11-02 09:20:00 97.3 [degF] [facility] bmi 2021-11-02 09:20:00 39.27 kg/m2 [facility] oximetry 2021-11-02 09:20:00 97 % [facility] respiratory rate 2021-11-02 09:20:00 18 /min Comm on [facility] blood pressure 2021-11-02 09:20:00 132 mm[Hg] [facility] blood pressure 2021-11-02 09:20:00 60 mm[Hg] [facility] WEIGHT 2021-08-25 03:40:00 108.455 kg WEIGHT 2021-08-24 04:00:00 108 kg HEIGHT 2021-08-23 20:08:00 160 cm WEIGHT 2021-08-23 20:08:00 107.8 kg WEIGHT 2021-08-25 03:40:00 108.455 kg WEIGHT 2021-08-24 04:00:00 108 kg HEIGHT 2021-08-23 20:08:00 160 cm WEIGHT 2021-08-23 20:08:00 107.8 kg height 2021-04-22 08:20:00 65 [in_i] [facility] weight 2021-04-22 08:20:00 235 [lb_av] [facility] temperature 2021-04-22 08:20:00 97.5 [degF] [facility] bmi 2021-04-22 08:20:00 39.10 kg/m2 [facility] Procedures Procedure Date / Time Performed Performing Clinician Sour e ASSIGNMENT OF BENEFITS 2023-10-06 14:55:47 Doctor Unassigned, No [facility] POCT SARS-COV-2 2023-01-17 18:10:[address] [facility] [place] ANTIGEN (BINAX NOW) Medical Bran ch POCT MOLECULAR FLU 2023-01-17 17:48:00 Unknown, [facility] SARS-COV-2 2022-12-18 19:43:[address] [facility] [place] ANTIGEN (BINAX NOW) Medical Bran ch ASSIGNMENT OF BENEFITS 2022-07-27 18:38:57 Doctor Unassigned, No [facility] Plan of Care Planned Activity Planned Date Details Comments Source Future Scheduled 2029-07-25 DTAP/TDAP/TD VACCINES ([address] [facility] 00:00:00 - Td or Tdap) [code = Medica l Center DTAP/TDAP/TD VACCINES (2 - Td or Tdap)] Future Scheduled 2029-07-25 DTAP/TDAP/TD VACCINES ([address] [facility] 00:00:00 - Td or Tdap) [code = Medica l Center DTAP/TDAP/TD VACCINES (2 - Td or Tdap)] Future Scheduled 2029-07-25 DTAP/TDAP/TD VACCINES ([address] [facility] 00:00:00 - Td or Tdap) [code = Medica l Center DTAP/TDAP/TD VACCINES (2 - Td or Tdap)] Future Scheduled 2024-08-23 Lipid panel (procedure) [facility] 00:00:00 [code = 86548425] Medical Ce nter Future Scheduled 2024-08-23 Lipid panel (procedure) [facility] 00:00:00 [code = 06899879] Medical Ce nter Future Scheduled 2024-08-23 Lipid panel (procedure) [facility] 00:00:00 [code = 30989362] Medical Ce nter Future Scheduled 2023-07-21 Influenza Vaccine (#1) [facility]00 [code = Influenza Vaccine [facility] (#1)] Future Scheduled 2023-07-21 Influenza Vaccine (#1) [facility] 00:00:00 [code = Influenza Vaccine Me dical Center (#1)] Future Scheduled 2023-07-21 Influenza Vaccine (#1) [facility] 00:00:00 [code = Influenza Vaccine Me dical Center (#1)] Future Scheduled 2022-11-[address] [facility] 00:00:00 (12+) [code = DEPRESSION Med ical Center SCREENING (12+)] Future Scheduled 2022-11-[address] [facility] 00:00:00 (12+) [code = DEPRESSION Med ical Center SCREENING (12+)] Future Scheduled 2022-11-[address] [facility] 00:00:00 (12+) [code = DEPRESSION Med ical Center SCREENING (12+)] Future Scheduled 2022-08-[address] [facility] 00:00:00 Counseling and Screening [facility] (12+) [code = Tobacco Cessation Counseling and Screening (12+)] Future Scheduled 2022-08-24 Urine screening for [facility] 00:00:00 protein (procedure) [code [facility] = 788176146] Future Scheduled 2022-08-[address] [facility] 00:00:00 Counseling and Screening [facility] (12+) [code = Tobacco Cessation Counseling and Screening (12+)] Future Scheduled 2022-08-24 Urine screening for [facility] 00:00:00 protein (procedure) [code [facility] = 358382532] Future Scheduled 2022-08-[address] [facility] 00:00:00 Counseling and Screening [facility] (12+) [code = Tobacco Cessation Counseling and Screening (12+)] Future Scheduled 2022-08-24 Urine screening for [facility] 00:00:00 protein (procedure) [code [facility] = 867579289] Future Scheduled 2022-02-[address] [facility] 00[facility]00 measurement (procedure) [facility] [code = 91529737] Future Scheduled 2022-02-[address] [facility] 00:00:00 measurement (procedure) [facility] [code = 87977536] Future Scheduled 2022-02-[address] [facility] 00:00:00 measurement (procedure) [facility] [code = 55406611] Future Scheduled 2014-01-27 SHINGLES VACCINES ([address] [facility] 00:00:00 2) [facility] Future Scheduled 2014-01-27 SHINGLES VACCINES ([address] [facility] 00:00:00 2) [facility] Future Scheduled 2014-01-27 SHINGLES VACCINES ([address] [facility] 00:00:00 2) [facility])] Future Scheduled 1985-01-27 Screening for malignant [facility] 00:00:00 neoplasm of cervix Medical C enter (procedure) [code = 893446630] Future Scheduled 1985-01-27 Screening for malignant [facility] 00:00:00 neoplasm of cervix Medical C enter (procedure) [code = 399332138] Future Scheduled 1985-01-27 Screening for malignant [facility] 00:00:00 neoplasm of cervix Medical C enter (procedure) [code = 417938676] Future Scheduled 1982-01-27 HEPATITIS C SCREENING [facility] 00[facility]00:00 [code = HEPATITIS C Medical Center SCREENING] Future Scheduled 1982-01-27 HEPATITIS C [facility]CRE[facility]ING [facility] 00:00:00 [code = HEPATITIS C Medical Center SCREENING] Future Scheduled 1982-01-27 HEPATITIS C [facility]CRE[facility]ING [facility] 00:00:00 [code = HEPATITIS C Medical Center SCREENING] Future Scheduled 1979-01-[address] [facility] 00:00:00 virus screening Medical Cent er (procedure) [code = 854359812] Future Scheduled 1979-01-[address] [facility] 00:00:00 virus screening Medical Cent er (procedure) [code = 538582120] Future Scheduled 1979-01-[address] [facility] 00:00:00 virus screening Medical Cent er (procedure) [code = 881188125] Future Scheduled 1974-01-27 DIABETIC EYE EXAM [code = [facility] 00:00:00 DIABETIC EYE EXAM] Medical C enter Future Scheduled 1974-01-27 DIABETIC EYE EXAM [code = [facility] 00:00:00 DIABETIC EYE EXAM] Medical C enter Future Scheduled 1974-01-27 DIABETIC EYE EXAM [code = [facility] 00:00:00 DIABETIC EYE EXAM] Medical C enter Future Scheduled 1970-01-27 Pneumococcal Vaccine: [facility] 00:[facility]:00 0-64 Years (1 - PCV) Medical Center [code = Pneumococcal Vaccine: 0-64 Years (1 - PCV)] Future Scheduled 1970-01-27 Pneumococcal Vaccine: [facility] 00:[facility]:00 0-64 Years (1 - PCV) Medical Center [code = Pneumococcal Vaccine: 0-64 Years (1 - PCV)] Future Scheduled 1970-01-27 Pneumococcal Vaccine: [facility] 00:[facility]:00 0-64 Years (1 - PCV) Medical Center [code = Pneumococcal Vaccine: 0-64 Years (1 - PCV)] Future Scheduled 1964 COVID-19 VACCINE (#1) [facility]00 [code = COVID-19 VACCINE Med ical Center (#1)] Future Scheduled 1964 COVID-19 VACCINE (#1) [facility] 00:[facility]:00 [code = COVID-19 VACCINE Med ical Center (#1)] Future Scheduled 1964 COVID-19 VACCINE (#1) [facility] 00:[facility]:00 [code = COVID-19 VACCINE Med ical Center (#1)] Future Scheduled 1964 Screening for malignant [facility] 00:00:00 neoplasm of breast Medical C enter (procedure) [code = 597851082] Future Scheduled 1964 CT Colonography (combo) [facility] 00:00:00 [code = CT Colonography [facility] (combo)] Future Scheduled 1964 Screening for malignant [facility] 00:00:00 neoplasm of colon Medical Ce nter (procedure) [code = 647800588] Future Scheduled 1964 Screening for malignant [facility] 00:00:00 neoplasm of colon Medical Ce nter (procedure) [code = 242197855] Future Scheduled 1964 Screening for malignant [facility] 00:00:00 neoplasm of colon Medical Ce nter (procedure) [code = 362975205] Future Scheduled 1964 Screening for malignant [facility] 00:00:00 neoplasm of colon Medical Ce nter (procedure) [code = 699272743] Future Scheduled 1964 Sigmoidoscopy [code = [facility] Sigmoidoscopy] Medical Cente r Future Scheduled 1964 Screening for malignant [facility] 00:00:00 neoplasm of breast Medical C enter (procedure) [code = 777154675] Future Scheduled 1964 CT Colonography (combo) [facility] 00:00:00 [code = CT Colonography Medi edilberto Center (combo)] Future Scheduled 1964 Screening for malignant [facility] 00:00:00 neoplasm of colon Medical Ce nter (procedure) [code = 520015393] Future Scheduled 1964 Screening for malignant [facility] 00:00:00 neoplasm of colon Medical Ce nter (procedure) [code = 056901346] Future Scheduled 1964 Screening for malignant [facility] 00:00:00 neoplasm of colon Medical Ce nter (procedure) [code = 906385911] Future Scheduled 1964 Screening for malignant [facility] 00:00:00 neoplasm of colon Medical Ce nter (procedure) [code = 306350974] Future Scheduled 1964 Sigmoidoscopy [code = [facility] Sigmoidoscopy] Medical Cente r Future Scheduled 1964 Screening for malignant [facility] 00:00:00 neoplasm of breast Medical C enter (procedure) [code = 698104268] Future Scheduled 1964 CT Colonography (combo) [facility] 00:00:00 [code = CT Colonography Medi edilberto Center (combo)] Future Scheduled 1964 Screening for malignant [facility] 00:00:00 neoplasm of colon Medical Ce nter (procedure) [code = 471232465] Future Scheduled 1964 Screening for malignant [facility] 00:00:00 neoplasm of colon Medical Ce nter (procedure) [code = 526911055] Future Scheduled 1964 Screening for malignant [facility] 00:00:00 neoplasm of colon Medical Ce nter (procedure) [code = 625022714] Future Scheduled 1964 Screening for malignant [facility] 00:00:00 neoplasm of colon Medical Ce nter (procedure) [code = 824473710] Future Scheduled 1964 Sigmoidoscopy [code [facility] Sigmoidoscopy] Medical Cente r Encounters Start End Encounter Admission Attending Care Care Encounter Source Date/Time Date/Time Type Type Clinicians Facility Department ID 2023-05-03 Outpatient [place], STLMLC STLMLC [id number] Common 13:48:00 Jose Angel 69605 [facility] 2022-10-28 Outpatient [place], STLMLC STLMLC [id number] Common 09:40:00 Jose Angel 18438 [facility] 2022-05-10 Outpatient [place], STLMLC STLMLC [id number] Common 14:12:01 Jose Angel [facility] 2022-04-05 Outpatient [place], STLMLC STLMLC [id number] Common 10:05:15 Jose Angel [facility] 2022-03-11 Outpatient [place], STLMLC STLMLC [id number] Common 10:32:00 Jose Angel [facility] 2022-01-11 Outpatient [place], STLMLC STLMLC [id number] Common 14:14:00 Jose Angel [facility] 2021-12-15 Outpatient [place], STLMLC STLMLC [id number] Common 14:24:55 Jose Angel 76878 [facility] 2021-12-15 Outpatient [place], STLMLC STLMLC [id number] Common 14:23:32 Jose Angel 72796 [facility] 2021-12-15 Outpatient [place], STLMLC STLMLC [id number] Common 12:12:42 Jose Angel 16461 [facility] 2021-12-15 Outpatient [place], STLMLC STLMLC [id number] Common 11:12:04 Jose Angel 64617 [facility] 2021-08-23 Inpatient [facility] Surgery [id number] [facility] 17:23:44 NORMAN 2023-10-06 2023-10-06 Outpatient R CHINYERE [facility] [id number] Univers 09:00:00 11:43:18 CHRISTA itángela [facility] 2023-10-06 2023-10-06 Office Chinyere [facility] 1.2.840.114 [id number] Univers 09:00:00 09:30:00 Visit Christa [facility] 350.1.13.10 it y of [place] 4.2.7.2.686 Rusty as BURKE?BLEA [phone] La dicrachell [address] MEDICAL OFFICE BUILDING 2023-10-06 2023-10-06 Orders Doctor JOANNA 1.2.840.114 [id number] Univers 00:00:00 00:00:00 Only Unassigned, DOMENICO [id number] ity of [place] [facility] 4.2.7.2.686 Rusty as [phone] [address] 2023-06-16 2023-06-16 Outpatient R DELROY [facility] [id number] Univers 18:40:00 19:09:42 WANDY ángela [facility] 2023-06-16 2023-06-16 Urgent Delroy [facility] 1..840.11 4 [id number] Univers 18:40:00 19:09:42 Care Unknown, Attending HEALTH 350.1.13.10 ity of [place] 4.2.7.2.686 Rusty as BURKE?BLEA [phone] La john paul JEREZ [address] MEDICAL OFFICE BUILDING 2023-04-18 2023-04-18 Outpatient R HOMERO [facility] [id number] Univers 10:40:00 11:19:04 REEWendyU ángela [facility] 2023-04-18 2023-04-18 Urgent Macy Valentin [facility] 1..840.11 4 [id number] Univers 10:40:00 11:19:04 Care Unknown, Attending HEALTH 350.1.13.10 ity of [place] 4.2.7.2.686 Rusty as BURKE?BLEA [id number] [address] MEDICAL OFFICE [facility] 2023-01-24 2023-01-24 [facility] 1.2.840.114 [id number] Univers 00:00:00 00:00:00 Anai HEALTH 350.1.13.10 it y of [place] 4.2.7.2.686 Rusty as BURKE?BLEA [id number] [address] MEDICAL OFFICE [facility] 2023-01-17 2023-01-17 Outpatient R PIPO [facility] [id number] Univers 11:40:00 12:08:00 RANIA itángela of [facility] 2023-01-17 2023-01-17 Urgent Callie Cohen [facility] 1.2.840.114 [id number] Univers 11:40:00 12:08:00 Care Unknown, Attending HEALTH 350.1.13.10 ity of [place] 4.2.7.2.686 Rusty as BURKE?BLEA [id number] [address] MEDICAL OFFICE [facility] 2023-01-13 2023-01-13 [facility] 1.2.840.114 [id number] Univers 00:00:00 00:00:00 Anai HEALTH 350.1.13.10 it y of [place] 4.2.7.2.686 Rusty as BURKE?BLEA [id number] [address] OFFICE [facility] 2023-01-09 2023-01-09 [facility] 1.2.840.114 [id number] Univers 00:00:00 00:00:00 Anai HEALTH 350.1.13.10 it y of [place] 4.2.7.2.686 Rusty as BURKE?BLEA [id number] [address] OFFICE [facility] 2022-12-19 2022-12-19 JOANNA Banks 1.2.840.114 [id number] Univers 00:00:00 00:00:00 (Out) Dianeshwetha NATHY 350.1.13.10 it y of HOSPITAL 4.2.7.2.686 Rusty as [phone] [address] 2022-12-192022-12-19 Telephone [facility] 1.2.936.966 [id number] Univers 00:00:00 00:00:00 [facility] 350.1.13.10 it y of [place] 4.2.7.2.686 Rusty as BURKE?BLEA [id number] [address] OFFICE [facility] 2022-12-18 2022-12-18 [facility] [id number] Univers 12:00:00 14:01:33 ANAI ity of [facility] 2022-12-18 2022-12-18 [facility] 1.2.840.114 1 [id number] Univers 12:00:00 14:01:33 Care Unknown, [facility] HEALTH 350.1.13.10 ity of [place] 4.2.7.2.686 Rusty as BURKE?BLEA [id number] [address] OFFICE [facility] 2022-07-27 2022-07-27 Outpatient [facility] [id number] Univers 13:40:00 14:39:42 SARMAD ity o f [facility] 2022-07-27 2022-07-27 Urgent [facility] 1.2.840.114 [id number] Univers 13:40:00 14:00:00 Care [facility] 350.1.13.10 i ty of [place] 4.2.7.2.686 Rusty as BURKE?BLEA [id number] [address] OFFICE [facility] 2022-07-27 2022-07-27 Orders Doctor JOANNA 1.2.840.114 [id number] Univers 00:00:00 00:00:00 Only Unassigned, DOMENICO 350.1.13.10 ity of [place] [facility] 4.2.7.2.686 Rusty as [id number] [address] 2022-02-14 2022-02-14 (TEL) [facility] STLC [id number] Co mmon 00:00:00 00:00:00 [facility] 2021-11-28 2021-11-28 Outpatient [facility] [id number] Univers 12:45:00 13:09:44 SARMAD beaver [facility] 2021-11-28 2021-11-28 Laboratory Only, Ang Db Test [facility] 1.2.8 40.114 [id number] Univers 12:45:00 13:00:00 Only Unknown, Attending HEALTH 350.1.13.10 ity of [place] 4.2.7.2.686 Rusty as BURKE?BLEA [id number] La dical [address] MEDICAL OFFICE BUILDING 2021-11-26 2021-11-26 (TEL) STLMLC STLMLC [id number] Co mmon 00:00:00 00:00:00 [facility] 2021-11-02 2021-11-02 (TEL) STLMLC STLMLC [id number] Co mmon 00:00:00 00:00:00 [facility] 2021-11-02 2021-11-02 (TEL) STLMLC STLMLC [id number] Co mmon 00:00:00 00:00:00 [facility] 2021-11-02 2021-11-02 PREV VISIT STLMLC STLMLC [id number] Common 00:00:00 00:00:00 EST AGE [facility] 40-64 [facility] 2021-10-27 2021-10-27 (TEL) STLMLC STLMLC [id number] Co mmon 00:00:00 00:00:00 [facility] 2021-10-19 2021-10-19 (TEL) STLMLC STLMLC [id number] Co mmon 00:00:00 00:00:00 [facility] 2021-08-23 2021-08-26 Inpatient ER LINDSEY, [facility] Cardiology [id number] [facility] 19:25:00 09:56:00 BRENDEN 2021-05-14 2021-05-14 (TEL) STLMLC STLMLC [id number] Co mmon 00:00:00 00:00:00 [facility] 2021-05-12 2021-05-12 (TEL) STLMLC STLMLC [id number] Co mmon 00:00:00 00:00:00 [facility] 2021-04-22 2021-04-22 OFFICE STLMLC STLMLC [id number] Co mmon 00:00:00 00:00:00 VISIT EST Spir it PT LEVEL 3 [facility] 2021-04-22 2021-04-22 (TEL) STLMLC STLMLC [id number] Co mmon 00:00:00 00:00:00 [facility] 2021-04-07 2021-04-07 (TEL) STLMLC STLMLC [id number] Co mmon 00:00:00 00:00:00 [facility] 2021-02-10 2021-02-10 Outpatient STLMLC STLMLC [id number] Common 00:00:00 00:00:00 [facility] 2021-02-02 2021-02-02 Outpatient STLMLC STLMLC [id number] Common 00:00:00 00:00:00 [facility] 2021-02-01 2021-02-01 Outpatient STLMLC STLMLC [id number] Common 00:00:00 00:00:00 [facility] 2021 2021 Outpatient STLMLC STLMLC [id number] Common 00:00:00 00:00:00 [facility] 2020-12-24 2020-12-24 Outpatient STLMLC STLMLC [id number] Common 00:00:00 00:00:00 [facility] 2020-09-03 2020-09-03 Outpatient STLMLC STLMLC [id number] Common 00:00:00 00:00:00 [facility] 2020-08-03 2020-08-03 Outpatient [facility] [id number] Common 16:00:00 16:00:00 [facility] 2020-02-06 2020-02-06 Outpatient [facility] [id number] Common 13:20:00 13:20:00 [facility] it [facility] 2020-01-22 2020-01-22 Outpatient [facility] [id number] Common 16:30:00 16:30:[address] [facility] 2020-01-22 2020-01-22 Outpatient [facility] [id number] Common 10:10:00 10:10:[address] Spir [address] [facility] 2020-01-21 2020-01-21 [facility] [id number] Common 09:44:00 09:44:[address] [facility] 2019-12-12 2019-12-12 [facility] [id number] Common 16:20:00 16:20:[address] [facility] 2019-10-07 2019-10-07 [facility] [id number] Common 14:40:00 14:40:[address] [facility] 2019-09-12 2019-09-12 [facility] [id number] Common 11:40:00 11:40:[address] [facility] 2019-07-25 2019-07-25 [facility] [id number] Common 16:15:00 16:15:00 t Urgent Ur[facility] 2019-07-08 2019-07-08 Outpatient MHBL MHBL [id number] MHBL 08:02:00 08:02:00 2019-07-02 2019-07-02 [facility] [id number] Common 14:46:00 14:46:00 t [facility] 2019-06-24 2019-06-24 [facility] [id number] Common 15:11:00 15:11:[address] [facility] 2019-06-10 2019-06-10 [facility] [id number] Common 13:16:00 13:16:00 t Bone Bone and Spiri t and Joint [facility] 2019-06-10 2019-06-10 [facility] [id number] Common 13:14:00 13:14:00 t Bone Bone and Spiri t and Joint [facility] 2019-06-10 2019-06-10 [facility] [id number] Common 13:14:00 13:14:00 t Bone Bone and Spiri t and Joint [facility] 2019-06-10 2019-06-10 [facility] [id number] Common 10:00:00 10:00:00 t Bone Bone and Spiri t and Joint [facility] 2019-06-06 2019-06-06 [facility] [id number] Common 14:43:00 14:43:00 t Bone Bone and Spiri t and Joint [facility] 2019-06-05 2019-06-05 [facility] [id number] Common 11:34:00 11:34:00 t Bone Bone and Spiri t and Joint [facility] 2019-06-03 2019-06-03 [facility] [id number] Common 11:00:00 11:00:00 t Bone Bone and Spiri t and Joint [facility] 2019-05-20 2019-05-20 [facility] [id number] Common 11:32:00 11:32:[address] [facility] [address] [facility] 2019-04-30 2019-04-30 [facility] [id number] Common 14:45:00 14:45:[address] [facility] [address] [facility] 2019-04-02 2019-04-02 [facility] [id number] Common 15:48:00 15:48:[address] [facility] [address] [facility] 2019-03-06 2019-03-06 [facility] [id number] Common 16:15:00 16:15:[address] [facility] [address] [facility] 2019-03-01 2019-03-01 [facility] [id number] Common 10:15:00 10:15:00 t Urgent Urgent Care S [facility] 2018-10-30 2018-10-30 [facility] [id number] Common 15:00:00 15:00:[address] [facility] [address] [facility] 2018-04-06 2018-04-06 [facility] [id number] Common 09:15:00 09:15:[address] [facility] [address] [facility] 2018-03-20 2018-03-20 [facility] [id number] Common 15:30:00 15:30:[address] [facility] [address] [facility] Results Test Description Test Time Test Comments Results Result Comments Source POCT SARS-COV-2 ANTIGEN (BINAX NOW) 2023-01-17 18:10:00 Test Item Value Reference Range Interpretation Comme nts POCT SARS-COV-2 ANTIGEN (test code = 90009-7) Not Detected Not Dete cted On board controls acceptable with C Line (test code = Yes 3574) Lab Interpretation (test code = 34024-0) Normal [facility] MOLECULAR [id number] 18:00:35 Test Item Value Reference Range Interpretation Comments POCT Molecular FluA (test code = Negative Negative 53413-8) POCT Molecular FluB (test code = Negative Negative 61955-3) Lab Interpretation (test code = Normal 60666-4) [facility] SARS-COV-2 ANTIGEN (BINAX NOW)2022-12-18 19:58:00 Test Item Value Reference Range Interpretation Comments POCT SARS-COV-2 ANTIGEN (test Not Detected Not Detected code = 56233-3) On board controls acceptable Yes with C Line (test code = 3574) Lab Interpretation (test code = Normal 76724-9) [facility]-GLUCOSE [id number] 08:06:45 Test Item Value Reference Range Interpretation Comments POC-GLUCOSE METER 54 mg/dL 70-110 L : TESTED A T [facility] 6720 (BEAKER) (test code = [place], 1538) [address]: Weapons Engineer/Techni kinza ID = [id number] for KRISTA CASTILLO [id number] 04:54:39 Test Item Value Reference Range Interpretation Comments MAGNESIUM (BEAKER) (test code = 1.9 mg/dL 1.6-2.6 627) Weapons Engineer ID - PIAYA LBASIC METABOLIC [id number] 04:54:38 Test Item Value Reference Range Interpretation Comments SODIUM (BEAKER) 136 meq/L 136-145 (test code = 381) POTASSIUM (BEAKER) 4.3 meq/L 3.5-5.1 (test code = 379) CHLORIDE (BEAKER) 103 meq/L 98-107 (test code = 382) CO2 (BEAKER) (test 25 meq/L 22-29 code = 355) BLOOD UREA NITROGEN 12 [...] S NOT APPLICABLE FOR DIALYSIS PATIEN TS. Weapons Engineer ID - PIAYA LCBC W/PLT COUNT & AUTO [id number] 04:39:11 Test Item Value Reference Range Interpretation [...] PERCENT (BEAKER) (test code = 2801) POCT-GLUCOSE [id number] 21:32:12 Test Item Value Reference Range Interpretation Comments POC-GLUCOSE METER 297 mg/dL 70-110 H : TESTED Dung Keyes [facility] 6720 (BEAKER) (test code = [place], 1538) [address]: Weapons Engineer/Techni kinza ID = [id number] for LEXII GARCIA POCT-GLUCOSE [id number] 17:02:54 Test Item Value Reference Range Interpretation Comments POC-GLUCOSE METER 75 mg/dL 70-110 : Notified RN/MD: TESTED (BEAKER) (test code = AT [address] 1538) [facility], [facility] 30: Weapons Engineer/Techni kinza ID = [id number] for NELLY POTTS [id number] 16:04:46 Test Item Value Reference Range Interpretation Comments ACTIVATED CLOTTING TIME 296 sec : 74 -137 seconds, (BEAKER) (test code = Baseli ne: TESTED AT 441) [address], [facility] 30: Weapons Engineer/Techni kinza ID = [id number] for CA RPIO, MICHAEL [id number] 15:27:34 Test Item Value Reference Range Interpretation Comments ACTIVATED CLOTTING TIME 290 sec : 74 -137 seconds, (BEAKER) (test code = Baseli ne: TESTED AT 441) [address], [facility] 30: Weapons Engineer/Techni kinza ID = [id number] for SA LINAS, CHAZ [id number] 14:59:17 Test Item Value Reference Range Interpretation Comments ACTIVATED CLOTTING TIME 274 sec : 74 -137 seconds, (BEAKER) (test code = Baseli ne: TESTED AT 441) [address], [facility] 30: Weapons Engineer/Techni kinza ID = [id number] for RE COLLEEN, BIA [id number] 14:48:05 Test Item Value Reference Range Interpretation Comments ACTIVATED CLOTTING TIME 230 sec : 74 -137 seconds, (BEAKER) (test code = Siobhani ne: TESTED AT 441) [address], [facility] 30: Weapons Engineer/Techni kinza ID = [id number] for CA RPIO, MICHAEL POCT-GLUCOSE [id number] 11:58:23 Test Item Value Reference Range Interpretation Comments POC-GLUCOSE METER 155 mg/dL 70-110 H : TESTED [place] [address] ([facility]) (test code = JAVYND Misty [facility], 1538) [address]: Weapons Engineer/Techni kinza ID = [id number] for DEN ROOT FAYE POCT-GLUCOSE [id number] 10:51:20 Test Item Value Reference Range Interpretation Comments POC-GLUCOSE METER 244 mg/dL 70-110 H : TESTED A T [facility] 6720 (BEAKER) (test code = [facility], 1538) [address]: Weapons Engineer/Techni kinza ID = [id number] for Franky Fink POCT-GLUCOSE [id number] 09:18:45 Test Item Value Reference Range Interpretation Comments POC-GLUCOSE METER 394 mg/dL 70-110 H : TESTED A T [facility] 6720 (BEAKER) (test code = [facility] Misty [facility], 1538) [address]: Weapons Engineer/Techni kinza ID = [id number] for Franky Fink (CELLAVISION MANUAL DIFF)2021-08-25 07:56:47 [...] CONCENTRATION Adequate (CELLAVISION)(BEAKER) (test code = 3438) Weapons Engineer ID - Traci Lopez comments: Slide comments:CBC W/PLT COUNT & AUTO [id number] 07:56:46 Test Item Value Reference Range Interpretation [...] CELLS (BEAKER) (test code = 413) POCT-GLUCOSE [id number] 07:28:08 Test Item Value Reference Range Interpretation Comments POC-GLUCOSE METER 454 mg/dL 70-110 HH : Notified RN/MD: (BEAKER) (test code = TESTED AT [facility] 6793 5910) [facility], [address]: Weapons Engineer/Techni kinza ID = [id number] for FAYE CALDERON [id number] 05:35:50 Test Item Value Reference Range Interpretation Comments MAGNESIUM (BEAKER) (test code = 1.9 mg/dL 1.6-2.6 627) Weapons Engineer ID - jrlBASIC METABOLIC [id number] 05:35:49 Test Item Value Reference Range Interpretation [...] S NOT APPLICABLE FOR DIALYSIS PATIEN TS. Weapons Engineer ID - jrlPROTHROMBIN TIME/[id number] 05:10:57 Test Item Value Reference Range Interpretation Comments PROTIME (BEAKER) 13.9 seconds 11.9-14.2 (test code = 759) INR (BEAKER) (test 1.09 See_Comment [Automat ed message] code = 370) The system Pigit generated this result transmitted ref erence range: <=5.90. The reference range was not used to int erpret this result as normal/abnormal . RECOMMENDED COUMADIN/WARFARIN INR THERAPY RANGESSTANDARD DOSE: 2.0 - 3.0 Includes: PROPHYLAXIS for venous thrombosis, systemic embolization; TREATMENT for venous thrombosis and/or pulmonary embolus.HIGH RISK: Target INR is 2.5-3.5 for patients with mechanical heart valves.SARS-COV2/RT-PCR ([facility]) 2021-08-25 02:05:49 Test Item Value Reference Range Interpretation Comments SARS-COV2/RT-PCR (test code = Negative Negative 9238497) Negative result for this test determines that [...] 564(g) of the Act.Testing was performed using t JobSerf SARS-CoV-2 assay.Fact Sheet for Healthcare Providers:https://www.Limos.com.salcedo/rubina/RT SARS-CoV-2 HCP Fact Sheet 51- 770843.pdfFact Sheet for Healthcare Patients:https://www.molecular.salcedo/rubina/RT SARS-CoV-2 Patient Fact Sheet EN 51-215527J0.pdfPOCT-GLUCOSE [id number] 20:59:32 Test Item Value Reference Range Interpretation Comments POC-GLUCOSE METER 181 mg/dL 70-110 H : TESTED A T [facility] 6720 (KEEGANROMMEL) (test code = [place], 1538) [address]: Weapons Engineer/Techni kinza ID = [id number] for DARLINE NEIL POCT-GLUCOSE [id number] 17:25:29 Test Item Value Reference Range Interpretation Comments POC-GLUCOSE METER 250 mg/dL 70-110 H : TESTED A T [facility] 6720 (BEAKER) (test code = [facility], 1538) [address]: Weapons Engineer/Techni kinza ID = [id number] for MICHAEL RM HEMOGLOBIN [id number] 13:20:08 Test Item Value Reference Range Interpretation Comments HEMOGLOBIN A1C (BEAKER) (test code = 7.4 % 4.3-6.1 H 368) POCT-GLUCOSE [id number] 12:11:08 Test Item Value Reference Range Interpretation Comments POC-GLUCOSE METER 310 mg/dL 70-110 H : TESTED A T [facility] 6720 (SEBASTIÁN) (test code = [facility], 1538) [address]: Weapons Engineer/Techni kinza ID = [id number] for MICHAEL RM HIGH SENSITIVITY TROPONIN [id number] 10:33:16 Test Item Value Reference Range Interpretation Comments HIGH SENSITIVITY 81 pg/ml See_Comment H [Automated message] TROPONIN I (test code = The system which [id number]) generated this result transmitted ref erence range: <=17. Th e reference range was not used to int erpret this result as normal/abnormal . Weapons Engineer ID - BRIANA sherman PROJECT MANAGEMENT MANAGER STAT High Sensitivity Troponin-I results should be used in conjunction with other diagnostic information such as ECG, clinical observations and information, and patient symptoms to aid in the diagnosis of MO.POCT-GLUCOSE [id number] 07:43:54 Test Item Value Reference Range Interpretation Comments POC-GLUCOSE METER 352 mg/dL 70-110 H : TESTED A T [facility] 6720 (BEAKER) (test code = [facility], 1538) [address]: Weapons Engineer/Techni kinza ID = [id number] for MICHAEL RM HEPATIC FUNCTION [id number] 06:08:35 Test Item Value Reference Range Interpretation [...] (test code = 15 U/L 6-55 347) Weapons Engineer ID - JRLBASIC METABOLIC [id number] 06:08:34 Test Item Value Reference Range Interpretation [...] S NOT APPLICABLE FOR DIALYSIS PATIEN TS. Weapons Engineer ID - JRLHIGH SENSITIVITY TROPONIN [id number] 06:07:50 Test Item Value Reference Range Interpretation Comments HIGH SENSITIVITY 119 pg/ml See_Comment H [Automated message] TROPONIN I (test code The sy stem which = [id number]) generated this result transmitted ref erence range: <=17. Th e reference range was not used to int erpret this result as normal/abnormal . Weapons Engineer ID - JRLThe PROJECT MANAGEMENT MANAGER STAT High Sensitivity Troponin-I results should be used in conjunction with other diagnostic information such as ECG, clinical observations and information, and patient symptoms to aid in the diagnosis of MO.POCT-GLUCOSE [id number] 05:38:08 Test Item Value Reference Range Interpretation Comments POC-GLUCOSE METER 101 mg/dL 70-110 : TESTED A T [facility] 6720 (BEAKER) (test code = [place], 1538) [address]: Weapons Engineer/Techni kinza ID = [id number] for Samm sosa (contract, Mouna martinez CBC W/PLT COUNT & AUTO [id number] 05:32:08 Test Item Value Reference Range Interpretation [...] PERCENT (BEAKER) (test code = 2801) POCT-GLUCOSE [id number] 04:41:29 Test Item Value Reference Range Interpretation Comments POC-GLUCOSE METER 61 mg/dL 70-110 L : Notified RN/MD: TESTED (BEAKER) (test code = AT [facility] [address] [facility] 1532) [facility], 770 30: Weapons Engineer/Techni kinza ID = [id number] for Pool e (contract, Mouna juan MICROALBUMIN, RANDOM [id number] 04:14:24 Test Item Value Reference Range Interpretation Comments MICROALBUMIN URINE (BEAKER) (test < mg/dL code = 1794) Reference Range: No NormalsOperator ID - TANIA MCREATININE, RANDOM URINE 2021-08-24 04:11:48 Test Item Value Reference Range Interpretation Comments CREATININE URINE (BEAKER) (test 184.9 mg/dL code = 375) Reference Range: No NormalsOperator ID - TANIA MURINALYSIS [id number] 03:09:20 Test Item Value Reference Range Interpretation Comments RBC UA (BEAKER) (test code = 519) 1 /HPF WBC UA (BEAKER) (test code = 520) 1 /HPF BACTERIA (BEAKER) (test code = 517) None Seen SQUAMOUS EPITHELIAL (BEAKER) (test 1 /HPF code = 516) CRYSTALS, URINE (BEAKER) (test code None Seen = 1521) Weapons Engineer ID - techURINALYSIS WITH MICROSCOPIC IF [id number] 03:07:34 Test Item Value Reference Range Interpretation [...] 0.2-1.0 = 463) SOURCE(BEAKER) (test code = 2795) Weapons Engineer ID - [auto]HIGH SENSITIVITY TROPONIN [id number] 01:38:14 Test Item Value Reference Range Interpretation Comments HIGH SENSITIVITY 117 pg/ml See_Comment H [Automated message] TROPONIN I (test code The sy stem which = [id number]) generated this result transmitted ref erence range: <=17. Th e reference range was not used to int erpret this result as normal/abnormal . Weapons Engineer ID - [facility]IA [facility] PROJECT MANAGEMENT MANAGER STAT High Sensitivity Troponin-I results should be used in conjunction with other diagnostic information such as ECG, clinical observations and information, and patient symptoms to aid in the diagnosis of MO.B-TYPE NATRIURETIC FACTOR (BNP)2021-08-23 23:16:55 Test Item Value Reference Range Interpretation Comments B-TYPE NATRIURETIC PEPTIDE (BEAKER) 43 pg/mL 0-100 (test code = 700) Weapons Engineer ID - DBLIPID [id number] 23:10:55 Test Item Value Reference Range Interpretation [...] Borderline 130-159 High 160-189 Very High >=190 Weapons Engineer ID - DBHEPATIC FUNCTION [id number] 23:10:55 Test Item Value Reference Range Interpretation [...] (test code = 15 U/L 6-55 347) Weapons Engineer ID - DBBASIC METABOLIC [id number] 23:10:54 Test Item Value Reference Range Interpretation [...] S NOT APPLICABLE FOR DIALYSIS PATIEN TS. Weapons Engineer ID - [id number] 23:10:54 Test Item Value Reference Range Interpretation Comments PHOSPHORUS (BEAKER) (test code = 3.1 mg/dL 2.3-4.7 604) Weapons Engineer ID - [id number] 23:10:53 Test Item Value Reference Range Interpretation Comments MAGNESIUM (BEAKER) (test code = 1.8 mg/dL 1.6-2.6 627) Weapons Engineer ID - DBPROTHROMBIN TIME/[id number] 23:00:13 Test Item Value Reference Range Interpretation Comments PROTIME (BEAKER) 13.4 seconds 11.9-14.2 (test code = 759) INR (BEAKER) (test 1.04 See_Comment [Automat ed message] code = 370) The system Pigit generated this result transmitted ref erence range: <=5.90. The reference range was not used to int erpret this result as normal/abnormal . RECOMMENDED COUMADIN/WARFARIN INR THERAPY RANGESSTANDARD DOSE: 2.0 - 3.0 Includes: PROPHYLAXIS for venous thrombosis, systemic embolization; TREATMENT for venous thrombosis and/or pulmonary embolus.HIGH RISK: Target INR is 2.5-3.5 for patients with mechanical heart valves.CBC W/PLT COUNT & AUTO [id number] 22:52:14 Test Item Value Reference Range Interpretation [...] PERCENT (BEAKER) (test code = 2801) POCT-GLUCOSE [id number] 22:33:28 Test Item Value Reference Range Interpretation Comments POC-GLUCOSE METER 90 mg/dL 70-110 : TESTED A T [facility] 6720 (BEAKER) (test code = [place], 1538) [address]: Weapons Engineer/Techni kinza ID = [id number] for VIOLET ALLAN RAD, CHEST, 1 VIEW, NON [id number] 20:41:00Reason for exam:->shrotness of breathShould this be performed at the bedside?->Yes [facility] : 1965 Sex: [...] MDReport Verified Date/Time: 08/23/2021 20:41:44 Reading Location: [facility]
--- NOTE | 2023-10-08 22:21 | RAD REPORT ---
EXAM DESCRIPTION: RAD - Chest Single View - 10/08/2023 10:09 pm CLINICAL HISTORY: ABDOMINAL DISTENTION Chest pain. COMPARISON: Chest Pa And Lat (2 Views) dated 07/28/2023; Chest Single View dated 07/10/2023; Chest Pa A nd Lat (2 Views) dated 08/19/2021; Chest Single View dated 11/07/2016; Chest Abd Pelvis Wo Con dated ; Brain W/Wo Cont dated 07/12/2023; Pet Ct Whole Body dated 08/24/2023 FINDINGS: Portable technique limits examination quality. Right peritracheal stripe fullness is present likely representing lymphadenopathy. No lung infiltrate is suspected. The heart is upper limit normal in size. Sclerotic lesion noted proximal right humerus likely metastatic.
[2023-10-08] MEDS ORDERED: DIAZEPAM 10 MG/2 ML INJ SYRINGE ONE (22:57)
[2023-10-08] MEDS ORDERED: ACETAMINOPHEN 650MG/RECT SUPP PR ONE (23:13)
[2023-10-08] MEDS ORDERED: NA CHLORIDE 0.9% 1,000 ML ONE (23:31)
[2023-10-09 02:15] LABS: Absolute Lymphocytes (CBC) 0.5 K/uL (0.7-4.9); Hematocrit 39.5 % (36.0-45.0); Lymphocytes % 6.5 % (15.3-44.8); MCV 93.3 fL (80-100); MPV 8.1 fL (7.6-11.3); Platelets 230 thou/uL (152-406); RBC Red Blood Cell Count 4.23 M/uL (3.86-4.86)
[2023-10-09 02:18] LABS: Protime INR 1.48
[2023-10-09] MEDS ORDERED: CEFTRIAXONE 1000 MG/VIAL ONE (02:18)
[2023-10-09] MEDS ORDERED: MORPHINE 4 MG/ML SYR ONE (02:18)
[2023-10-09] MEDS ORDERED: ONDANSETRON 4 MG/2 ML VIAL ONE (02:18)
[2023-10-09] MEDS ORDERED: NA CHLORIDE 0.9% 2,000 ML ONE (02:18)
[2023-10-09] MEDS ORDERED: NA CHLORIDE 0.9% 100 ML ONE (02:18)
[2023-10-09 02:29] LABS: Albumin 2.7 g/dL (3.4-5.0); Bilirubin Total 0.6 mg/dL (0.2-1.0); Potassium 2.8 mEq/L (3.5-5.1); Protein, Total 6.8 g/dL (6.4-8.2)
--- NOTE | 2023-10-09 02:54 | ER ---
Nurse's Notes [facility] Name: Shivani Sagastume Age: 58 yrs Sex: Female : 1965 Arrival Date: 10/08/2023 Time: 20:15 Bed 20 Private MD: Diagnosis: Sepsis, unspecified organism;Hypokalemia;Weakness Presentation: 10/08 20:57 Chief complaint: Parent and/or Guardian states: the patient has stage 4 cancer and has ap3 been getting increasingly weak over the last week and a half. it is reported that the patient also has had decreased appetite over the last 2 days. Coronavirus screen: At this time, the client does not indicate any symptoms associated with coronavirus-19. Ebola Screen: No symptoms or risks identified at this time. Initial Sepsis Screen: Does the patient meet any 2 criteria? HR > 90 bpm. Does the patient have a suspected source of infection? No. Patient's initial sepsis screen is negative. Risk Assessment: Do you want to hurt yourself or someone else? Patient reports no desire to harm self or others. Onset of symptoms is unknown. 20:57 Method Of Arrival: Wheelchair ap3 20:57 Acuity: VARUN 2 ap3 Triage Assessment: 20:59 General: Appears ill, Behavior is calm. Pain: Complains of pain in generalized pain. ap3 Neuro: Level of Consciousness is awake, alert, Oriented to person, place, time, situation, Appropriate for age. Cardiovascular: Patient's skin is warm and dry. Respiratory: Airway is patent Respiratory effort is even, unlabored, Respiratory pattern is regular, symmetrical. GI: Parent/caregiver reports the patient having decreased appetite and food intake. Historical: - Allergies: 20:59 Benadryl; ap3 - PMHx: 20:59 brain cancer; breast cancer; Diabetes Type 1; Hypertension; ap3 - PSHx: 20:59 Heart Stents; R eye SX; ap3 - Immunization history:: Adult Immunizations up to date. - Social history:: Smoking status: Patient denies any tobacco usage or history of. Screenin:00 Abuse screen: Denies threats or abuse. Nutritional screening:. Tuberculosis screening: ap3 No symptoms or risk factors identified. 21:42 [facility] ED Fall Risk Assessment (Adult) History of falling in the last 3 months, jw7 including since admission No falls in past 3 months (0 pts) Confusion or Disorientation Yes (5 pts) Intoxicated or Sedated No (0 pts) Impaired Gait Yes (1 pt) Mobility Assist Device Used No (0 pt) Altered Elimination No (0 pt) Score/Fall Risk Level 3 or more points = High Risk Oriented to surroundings, Maintained a safe environment, Educated pt \T\ family on fall prevention, incl call for assistance when getting out of bed, Hourly rounding (assess needs \T\ fall precautionary measures) done. Assessment: 21:00 General: see triage assessment. jw7 21:30 General: Unable to obtain IV access due to fragile peripheral veins . jw7 22:16 Reassessment: Patient appears in no apparent distress at this time. No changes from jw7 previously documented assessment. Patient and/or family updated on plan of care and expected duration. Pain level reassessed. Patient is alert, oriented x 3, equal unlabored respirations, skin warm/dry/pink. 23:32 Reassessment: Patient appears in no apparent distress at this time. No changes from jw7 previously documented assessment. Patient and/or family updated on plan of care and expected duration. Pain level reassessed. Patient is alert, oriented x 3, equal unlabored respirations, skin warm/dry/pink. 10/09 00:40 Reassessment: Patient appears in no apparent distress at this time. No changes from jw7 previously documented assessment. Patient and/or family updated on plan of care and expected duration. Pain level reassessed. Patient is alert, oriented x 3, equal unlabored respirations, skin warm/dry/pink. 01:35 Reassessment: Patient appears in no apparent distress at this time. No changes from jw7 previously documented assessment. Patient and/or family updated on plan of care and expected duration. Pain level reassessed. Patient is alert, oriented x 3, equal unlabored respirations, skin warm/dry/pink. 02:25 Reassessment: Patient appears in no apparent distress at this time. Patient and/or jw7 family updated on plan of care and expected duration. Pain level reassessed. Patient is alert, oriented x 3, equal unlabored respirations, skin warm/dry/pink. Patient states feeling better. 03:32 Reassessment: Patient appears in no apparent distress at this time. No changes from jw7 previously documented assessment. Patient and/or family updated on plan of care and expected duration. Pain level reassessed. Patient is alert, oriented x 3, equal unlabored respirations, skin warm/dry/pink. 04:45 Reassessment: Patient appears in no apparent distress at this time. No changes from jw7 previously documented assessment. Patient and/or family updated on plan of care and expected duration. Pain level reassessed. Patient is alert, oriented x 3, equal unlabored respirations, skin warm/dry/pink. Vital Signs: 10/08 20:57 BP 198 / 91; Pulse 125; Resp 21; Temp 98.4(A); Pulse Ox 100% ; Weight 92.99 kg; Height ap3 5 ft. 3 in. ; 21:39 BP 167 / 83; Pulse 120; Resp 15 S; Pulse Ox 99% on R/A; jw7 22:00 BP 137 / 81; Pulse 118; Resp 18 S; Pulse Ox 98% on R/A; jw7 22:53 Temp 100.5(A); jw7 23:10 BP 134 / 84; Pulse 115; Resp 22 S; Pulse Ox 97% on R/A; jw7 10/09 00:00 BP 138 / 84; Pulse 116; Resp 16 S; Pulse Ox 98% on R/A; jw7 01:00 BP 136 / 79; Pulse 112; Resp 19 S; Pulse Ox 96% on R/A; jw7 01:40 Temp 98.5(A); jw7 02:00 BP 134 / 54; Pulse 110; Resp 17 S; Pulse Ox 99% on R/A; jw7 02:53 BP 144 / 76; Pulse 108; ec2 03:00 BP 136 / 74; Pulse 106; Resp 15 S; Pulse Ox 97% on R/A; jw7 04:00 BP 124 / 69; Pulse 104; Resp 18 S; Pulse Ox 95% on R/A; jw7 05:05 BP 121 / 65; Pulse 100; Resp 12 S; Pulse Ox 95% on R/A; jw7 10/08 20:57 Body Mass Index 36.31 (92.99 kg, 160.02 cm) ap3 ED Course: 10/08 20:18 Patient arrived in ED. jj6 20:29 Clarke Lemus MD is Attending Physician. ec2 20:47 Nasra Gordon, RN is Primary Nurse. jw7 20:59 Triage completed. ap3 21:01 Arm band placed on right wrist. ap3 21:01 Patient has correct armband on for positive identification. Bed in low position. Call ap3 light in reach. Side rails up X 1. Adult w/ patient. Pulse ox on. NIBP on. 22:11 CXR XRAY In Process Unspecified. EDMS 22:58 EKG done, by ED staff, reviewed by Clarke Lemus MD. jw7 23:15 Inserted saline lock: 18 gauge in right EJ, using aseptic technique. as6 10/09 00:00 IV discontinued, intact, bleeding controlled, No redness/swelling at site. Pressure jw7 dressing applied, IV infiltrated. 00:01 Abdomen In Process Unspecified. EDMS 01:57 Assisted provider with central line placement. Set up central line tray. Triple lumen jw7 line placed in left femoral. Line placed by Clarke Lemus MD Placement verified by blood return, Dressed with Tegaderm, Blood was collected. Patient tolerated well. Before procedure, did Practitioner(s) obtain informed consent? Yes. Patient \T\ family education about procedure, CLABSI prevention and S/S of infection? Yes. Time-out/Briefing performed prior to start of procedure? Yes. Was handwashing/sanitizing done immediately prior to procedure? Yes. Was patient positioned to in a way to prevent air embolism? Yes. Was procedure site sterilized? Yes, with chlorhexidine. Was the site allowed to dry? Yes. Was local anesthetic and/or sedation utilized? Yes. During the procedure, did the Practitioner(s) maintain a sterile field? Yes. Were unused ports clamped during insertion? Yes. Was blood aspirated from each lumen? Yes. After the procedure, did the Practitioner(s) clean the site and apply a sterile dressing? Yes. 02:53 Brian Mak MD is Hospitalizing Provider. ec2 03:17 COVID-19 SARS RT PCR Sent. kmf 03:17 Influenza Screen (a \T\ B) Sent. kmf 03:59 Straight cath inserted, using sterile technique, 16 Fr. Specimen obtained. Returned jw7 ronald urine. Patient tolerated well. 04:28 Provided Education on: need for admit. jw7 Administered Medications: 10/08 22:55 Drug: Diazepam IM 5 mg IM once Route: IM; Site: right deltoid; jw7 10/09 03:21 Follow up: Response: No adverse reaction jw7 10/08 23:06 Drug: Acetaminophen [place] Suppository 650 mg [place] once Route: [place]; jw7 10/09 03:21 Follow up: Response: No adverse reaction; Marked relief of symptoms jw7 10/08 23:30 Drug: NS 0.9% IV 1000 ml IV at 1 bolus Per protocol; 1000 mL bolus Route: IV; Rate: 1 jw7 bolus; Site: right jugular; 10/09 03:22 Follow up: Response: No adverse reaction; IV Status: Completed infusion; IV Intake: jw7 1000ml 02:24 Drug: Ondansetron IVP 4 mg IVP once; over 2 minutes Route: IVP; Site: left femoral; jw7 04:29 Follow up: Response: No adverse reaction; Marked relief of symptoms jw7 02:24 Drug: morphine IVP or IV 4 mg IVP once over 4 mins Route: IVP; Infused Over: 4 mins; jw7 Site: left femoral; 04:29 Follow up: Response: No adverse reaction; Marked relief of symptoms jw7 02:24 Drug: Rocephin IV 1 grams IV at calculated rate once; Given slow IV push per pharmacy jw7 instructions Route: IV; Rate: calculated rate; Site: left femoral; 03:21 Follow up: Response: No adverse reaction; IV Status: Completed infusion; IV Intake: jw7 100ml 03:21 Drug: Potassium Chloride IV 20 mEq IV at calculated rate once; administer over 1-2 jw7 hours Route: IV; Rate: calculated rate; Site: left femoral; 04:28 Follow up: Response: No adverse reaction; IV Status: Infusion continued upon admission; jw7 IV Intake: 50ml 05:03 Follow up: Response: No adverse reaction; IV Status: Infusion continued upon admission; jw7 IV Intake: 90ml 05:03 Drug: NS 0.9% IV 3000 ml IV at 1000 ml once Route: IV; Rate: 1000 ml; Site: left jw femoral; 05:03 Follow up: Response: No adverse reaction; IV Status: Infusion continued upon admission; jw7 IV Intake: 1500ml Medication: 04:00 VIS not applicable for this client. jw7 Intake: 03:21 IV: 100ml; Total: 100ml. jw7 03:22 IV: 1000ml; Total: 1100ml. jw7 04:28 IV: 50ml; Total: 1150ml. jw7 05:03 IV: 1500ml; Total: 2650ml. jw7 05:03 IV: 90ml; Total: 2740ml. jw7 Outcome: 02:53 Decision to Hospitalize by Provider. ec2 04:28 Admitted to Med/surg accompanied by tech, via stretcher, room 224, Report called to [facility] receiving nurse 04:28 Condition: stable 04:28 Instructed on the need for admit, Demonstrated understanding of instructions, 05:06 Patient left the ED. jw7 Signatures: Dispatcher [employer] Anai Machado RN RN ap3 Kaylee [id number] Abdelrahman Clemente, SHI RN as6 Nasra Gordon RN RN jw7 Clarke Lemus MD MD ec2 Shanna Cortes [facility]
--- NOTE | 2023-10-09 02:54 | EDPHYS ---
Physician Documentation [facility] Name: Shivani Sagastume Age: 58 yrs Sex: Female : 1965 Arrival Date: 10/08/2023 Time: 20:15 Bed 20 Private MD: ED Physician Clarke Lemus HPI: 10/08 21:00 This 58 yrs old Female presents to ER via Wheelchair with complaints of ec2 Decreased Appetite, General Weakness, Altered Mental Status. 21:00 Patient arrives today due to concern for decreased p.o. intake, generalized weakness as ec2 well as confusion. Patient with history of metastatic breast cancer arrives today due to concern for decreased p.o. intake, has been having some nonspecific abdominal pain. Some nausea and vomiting, is having normal bowel movements. Patient also urinating. No difficulty breathing or chest pain. Patient previously underwent radiation therapy recently for mets to the right femur.. Historical: - Allergies: 20:59 Benadryl; ap3 - PMHx: 20:59 brain cancer; breast cancer; Diabetes Type 1; Hypertension; ap3 - PSHx: 20:59 Heart Stents; R eye SX; ap3 - Immunization history:: Adult Immunizations up to date. - Social history:: Smoking status: Patient denies any tobacco usage or history of. ROS: 21:00 Constitutional: as per hpi ec2 Exam: 21:00 Constitutional: GEN: NAD Head: atraumatic Eyes: EOMI Ears: External ears are ec2 normal. CV: tachycardia LUNGS: no respiratory distress ABD: non-distended, soft, generally tender, no guarding, not rigid SKIN: no evidence of rashes MSK: no evidence of trauma NEURO: moves all extremities equally Vital Signs: 20:57 BP 198 / 91; Pulse 125; Resp 21; Temp 98.4(A); Pulse Ox 100% ; Weight 92.99 kg; Height ap3 5 ft. 3 in. ; 21:39 BP 167 / 83; Pulse 120; Resp 15 S; Pulse Ox 99% on R/A; jw7 22:00 BP 137 / 81; Pulse 118; Resp 18 S; Pulse Ox 98% on R/A; jw7 22:53 Temp 100.5(A); jw7 23:10 BP 134 / 84; Pulse 115; Resp 22 S; Pulse Ox 97% on R/A; jw7 10/09 00:00 BP 138 / 84; Pulse 116; Resp 16 S; Pulse Ox 98% on R/A; jw7 01:00 BP 136 / 79; Pulse 112; Resp 19 S; Pulse Ox 96% on R/A; jw7 01:40 Temp 98.5(A); jw7 02:00 BP 134 / 54; Pulse 110; Resp 17 S; Pulse Ox 99% on R/A; jw7 02:53 BP 144 / 76; Pulse 108; ec2 03:00 BP 136 / 74; Pulse 106; Resp 15 S; Pulse Ox 97% on R/A; jw7 04:00 BP 124 / 69; Pulse 104; Resp 18 S; Pulse Ox 95% on R/A; jw7 05:05 BP 121 / 65; Pulse 100; Resp 12 S; Pulse Ox 95% on R/A; 7 10/08 20:57 Body Mass Index 36.31 (92.99 kg, 160.02 cm) ap3 Procedures: 01:30 Central Line: the site was prepped with Betadine, in sterile fashion, a triple lumen ec2 catheter was inserted, in the left in 2 attempts. placement was verified, by blood return, the site was dressed with Tegaderm, the patient tolerated the procedure, well, Initially attempted right groin central line however due to artery overlying venous structure, aborted and performed left sided central line without issue. MDM: 10/08 20:55 Patient medically screened. ec2 21:00 ED course: Patient arrives today due to concern for progression of generalized weakness ec2 as well as nausea, decreased p.o. intake. Examination remarkable for tachycardic individual who is generally uncomfortable appearing with general pain. Will obtain lab work-up, EKG, chest x-ray, CT abdomen pelvis, treat the patient's pain with IV morphine as well as crystalloid and antiemetic. Currently considering process such as urinary tract infection, progression of metastatic disease, anemia.. 21:03 ED course: I will add on a septic work-up and empirically treat with antibiotics. ec2 Patient meets SIRS criteria however no clear identifiable bacterial source.. 22:53 ED course: EKG independently reviewed and interpreted by me, shows sinus tachycardia, ec2 rate 116, no acute ST segment elevations, nonconcerning intervals.. 23:11 ED course: There has been significant delay obtaining labs given IV access, patient ec2 requiring a lot of coaching and redirecting to attend multiple IV lines, ultimately we decided to give her IM benzodiazepine to help with her anxiety and we will attempt continued IV access.. 10/09 00:04 ED course: Right EJ placed, infused fluids, subsequently infiltrated and removed. We ec2 will proceed with central line given issues with access.. 01:30 ED course: Left-sided central line placed in the groin by me, successful blood return.. ec2 01:32 Data reviewed: vital signs. ED course: Chest x-ray shows lymphadenopathy consistent ec2 with the patient's known metastatic cancer, CT abdomen pelvis shows no acute intra-abdominal process, does show progression of metastatic disease. Patient with cholelithiasis noted without evidence of cholecystitis. I do not feel these are clinically significant given the patient's reassuring hemodynamics and lack of respiratory distress. . 02:33 ED course: CBC is reassuring. Metabolic profile shows hypokalemia with potassium of ec2 2.8, renal dysfunction with a GFR of 72. Lipase within normal ranges, lactic acid within normal ranges. . 02:51 ED course: Will admit patient for continued work-up for infectious process, pending ec2 urine study, pending viral swabs. Discussed case with hospitalist, pending admission orders.. 10/08 20:59 Order name: CBC with Diff; Complete Time: 02:32 ec2 10/08 20:59 Order name: CMP ec2 10/08 20:59 Order name: Lipase ec2 10/08 20:59 Order name: Urinalysis w/ reflexes ec2 10/08 21:03 Order name: Blood Culture Adult (2) ec2 10/08 21:03 Order name: Lactate w/ 2H reflex if indic.; Complete Time: 02:32 ec2 10/08 21:03 Order name: Protime (+inr); Complete Time: 02:32 ec2 10/08 21:03 Order name: Ptt, Activated; Complete Time: 02:32 ec2 10/08 23:45 Order name: Glucose, Ancillary Testing; Complete Time: 02:01 EDMS 10/09 02:33 Order name: COVID-19 SARS RT PCR ec2 10/09 02:33 Order name: Influenza Screen (a \T\ B) ec2 10/09 03:57 Order name: T4 Free EDMS 10/09 03:57 Order name: Thyroid Stimulating Hormone EDMS 10/09 03:57 Order name: Urinalysis w/ reflexes EDMS 10/09 03:57 Order name: Basic Metabolic Panel EDMS 10/09 03:57 Order name: Basic Metabolic Panel EDMS 10/09 03:57 Order name: Basic Metabolic Panel EDMS 10/09 03:57 Order name: Basic Metabolic Panel EDMS 10/09 03:57 Order name: CBC with Automated Diff EDMS 10/09 03:57 Order name: CBC with Automated Diff EDMS 10/09 03:57 Order name: CBC with Automated Diff EDMS 10/09 03:57 Order name: CBC with Automated Diff EDMS 10/09 03:57 Order name: Magnesium EDMS 10/09 03:57 Order name: Magnesium EDMS 10/09 03:57 Order name: Magnesium EDMS 10/09 03:57 Order name: Magnesium EDMS 10/09 03:57 Order name: Phosphorus EDMS 10/09 03:57 Order name: Phosphorus EDMS 10/09 03:57 Order name: Phosphorus EDMS 10/09 03:57 Order name: Phosphorus EDMS 10/09 03:57 Order name: Protime (+INR) EDMS 10/09 03:57 Order name: Protime (+INR) EDMS 10/08 21:03 Order name: CXR XRAY; Complete Time: 02:01 ec2 10/08 23:05 Order name: Abdomen EDMS 10/08 21:03 Order name: EKG; Complete Time: 21:04 ec2 10/09 03:57 Order name: CONS Physician Consult EDMS 10/08 20:59 Order name: IV Saline Lock; Complete Time: 23:21 ec2 10/08 20:59 Order name: Labs collected and sent; Complete Time: 01:59 ec2 10/08 21:03 Order name: Accucheck; Complete Time: 23:21 ec2 10/08 21:03 Order name: Cardiac monitoring; Complete Time: 21:38 ec2 10/08 21:03 Order name: EKG - Nurse/Tech; Complete Time: 22:58 ec2 10/08 21:03 Order name: IV Saline Lock - Large Bore; Complete Time: 23:21 ec2 10/08 21:03 Order name: O2 Per Protocol; Complete Time: 21:38 ec2 10/08 21:03 Order name: O2 Sat Monitoring; Complete Time: 21:38 ec2 10/08 21:03 Order name: Vital Signs; Complete Time: 21:38 ec2 10/09 02:33 Order name: Cath; Complete Time: 03:40 ec2 Administered Medications: 10/08 22:55 Drug: Diazepam IM 5 mg IM once Route: IM; Site: right deltoid; jw7 10/09 03:21 Follow up: Response: No adverse reaction 7 10/08 23:06 Drug: Acetaminophen [place] Suppository 650 mg [place] once Route: [place]; jw7 10/09 03:21 Follow up: Response: No adverse reaction; Marked relief of symptoms jw7 10/08 23:30 Drug: NS 0.9% IV 1000 ml IV at 1 bolus Per protocol; 1000 mL bolus Route: IV; Rate: 1 jw7 bolus; Site: right jugular; 10/09 03:22 Follow up: Response: No adverse reaction; IV Status: Completed infusion; IV Intake: jw7 1000ml 02:24 Drug: Ondansetron IVP 4 mg IVP once; over 2 minutes Route: IVP; Site: left femoral; jw7 04:29 Follow up: Response: No adverse reaction; Marked relief of symptoms jw7 02:24 Drug: morphine IVP or IV 4 mg IVP once over 4 mins Route: IVP; Infused Over: 4 mins; jw7 Site: left femoral; 04:29 Follow up: Response: No adverse reaction; Marked relief of symptoms jw7 02:24 Drug: Rocephin IV 1 grams IV at calculated rate once; Given slow IV push per pharmacy jw7 instructions Route: IV; Rate: calculated rate; Site: left femoral; 03:21 Follow up: Response: No adverse reaction; IV Status: Completed infusion; IV Intake: jw7 100ml 03:21 Drug: Potassium Chloride IV 20 mEq IV at calculated rate once; administer over 1-2 jw7 hours Route: IV; Rate: calculated rate; Site: left femoral; 04:28 Follow up: Response: No adverse reaction; IV Status: Infusion continued upon admission; jw7 IV Intake: 50ml 05:03 Follow up: Response: No adverse reaction; IV Status: Infusion continued upon admission; jw7 IV Intake: 90ml 05:03 Drug: NS 0.9% IV 3000 ml IV at 1000 ml once Route: IV; Rate: 1000 ml; Site: left jw7 femoral; 05:03 Follow up: Response: No adverse reaction; IV Status: Infusion continued upon admission; jw7 IV Intake: 1500ml Disposition: 02:52 Critical Care:. ec2 Disposition Summary: 10/09/23 02:53 Hospitalization Ordered Notes: Hospitalization Status: Inpatient Admission ec2 Provider: Brian Mak ec2 [facility] ec2 Condition: Stable ec2 Problem: an acute exacerbation ec2 Symptoms: have improved ec2 Bed/Room Type: Standard ec2 Room Assignment: 224(10/09/23 03:57) kl Diagnosis - Sepsis, unspecified organism ec2 - Hypokalemia ec2 - Weakness ec2 Forms: - Medication Reconciliation Form ec2 - SBAR form ec2 - Leadership Thank You Letter ec2 Critical care time excluding procedures: 02:52 Critical care time: Bedside Care: 30 minutes, Consultation: 5 minutes. Total time: 35 ec2 minutes Signatures: Dispatcher [employer] EDElissa Sotelo RN Anai Figueroa RN RN Nasra Young RN RN jw7 Corral, Edwin, MD MD ec2 Corrections: (The following items were deleted from the chart) 10/08 21:53 21:53 Patient medically screened. ec2 ec2 23:05 21:00 Abdomen Pelvis W Con+CT.RAD.BRZ ordered. [facility] 10/09 02:35 01:32 ED course: Chest x-ray shows lymphadenopathy consistent with the patient's known ec2 metastatic cancer, CT abdomen pelvis shows no acute intra-abdominal process, does show progression of metastatic disease. Patient with small pericardial and right pleural effusion noted. I do not feel these are clinically significant given the patient's reassuring hemodynamics and lack of respiratory distress. . ec2 03:57 02:53 ec2
[2023-10-09] MEDS ORDERED: KCL 20 MEQ/100 mL IVPB 100 ML IV ONE (03:06)
[2023-10-09] MEDS ORDERED: ALBUTEROL 2.5 MG/3 ML NEB SOL NEB PRN (03:50)
[2023-10-09] MEDS ORDERED: MAGNESIUM HYDROXIDE 8% 30 ML PO PRN (03:50)
[2023-10-09] MEDS ORDERED: ONDANSETRON 4 MG/2 ML VIAL IV PRN ×2 (03:50→08:00)
[2023-10-09] MEDS ORDERED: ACETAMINOPHEN 500 MG TAB PO PRN (03:50)
[2023-10-09] MEDS: NA CHLORIDE 0.9% 1,000 ML IV SCH ×2 (04:00→17:52)
--- NOTE | 2023-10-09 04:03 | P.HP ---
Certification for Inpatient With expected LOS: <2 Midnights Patient will require the following post-hospital care: None Practitioner: I am a practitioner with admitting privileges, knowledge of patient current condition, hospital course, and medical plan of care. Services: Services provided to patient in accordance with Admission requirements found in Title 42 Section 412.3 of the Code of Federal Regulations <Melba Arora - Last Filed: 10/09/23 05:01> Patient History Date of Service: 10/09/23 <MakBrian Roopa - Last Filed: 10/09/23 04:52> Date of Service: 10/09/23 Reason for admission: Sepsis, Hypokalemia, weakness History of Present Illness: Ms. Mitesh Parrish is a 58-year-old female with a history of brain cancer, breast cancer, type 1 diabetes on insulin pump, hypertension presented to the ER via wheelchair with complaints of decreased appetite, generalized weakness, altered mental status. Patient reports that of decreased appetite, generalized weakness as well as confusion. Patient has history of metastatic breast cancer, brain cancer had radiation therapy recently for mets to right femur. Patient reports mild fever at home with chills not measured. Patient also reports some known specific abdominal pain, nausea and vomiting. Patient denies chest pain, shortness of breath, or palpitation. ED course Patient is alert and oriented now, patient's spouse and family member in the room helping with the history. Blood pressure 198/91, pulse 125, respiration 21, temperature 98.4, pulse ox 100% on room air. Patient came to ER due to concern of progression of generalized weakness as well as nausea, decreased oral intake. Examination remarkable for tachycardia. Sinus tachycardia heart rate of 116, no acute ST segment elevation no concerning intervals. There has been significant delay obtaining IV access, left femoral central line inserted by the emergency physician. Chest x-ray shows lymphadenopathy consistent with the patient's known metastatic cancer, CT abdomen pelvis shows no acute intra-abdominal process though shows progression of metastatic disease. Patient with a cholelithiasis noted without evidence of cholecystitis. CBC is normal, metabolic profile shows hypokalemia with a potassium of 2.8, GFR of 72. Lab lactic acid within normal range. Admitting the patient with the diagnosis of sepsis unspecified organism, hypokalemia, weakness. - Past Medical/Surgical History Has patient received pneumonia vaccine in the past: No Diabetic: Yes -: Breast cancer, -: Brain cancer on radiation -: Type 1 diabetes on insulin pump -: HTN <Melba Arora - Last Filed: 10/09/23 05:01> Allergies diphenhydramine [From Benadryl] Allergy (Verified 08/19/21 15:35) AGITATION/JUMPY Home Medications: Insulin Lispro [Humalog] 0 unit SQ SEECOM 06/01/15 lisinopriL [Prinivil] 5 mg PO DAILY 06/01/15 Gabapentin [Neurontin] 300 mg PO TID 10/20/15 Tramadol HCl [Ultram] 50 mg PO Q6HP PRN 10/20/15 Review of Systems 10-point ROS is otherwise unremarkable <Melba Arora - Last Filed: 10/09/23 05:01> Physical Examination - Studies Laboratory Data (last 24 hrs) 10/09/23 10/09/23 10/09/23 01:45 01:45 01:45 WBC 7.10 Hgb 13.5 Hct 39.5 Plt Count 230 PT 16.3 H INR 1.48 APTT 23.9 L Sodium 133 L Potassium 2.8 L BUN 8 Creatinine 0.92 Glucose 132 H Total Bilirubin 0.6 AST 18 ALT 11 L Alkaline Phosphatase 225 H Lipase 9 L Microbiology Data (last 24 hrs): 10/09/23 03:11 Nasopharnyx Influenza Type A Antigen Screen - Final 10/09/23 03:11 Nasopharnyx Influenza Type B Antigen Screen - Final <Brian Mak - Last Filed: 10/09/23 04:52> - Physical Exam General: Alert, Oriented x3 HEENT: Atraumatic, Normocephalic Neck: Supple, 2+ carotid pulse no bruit Respiratory: Clear to auscultation bilaterally, Normal air movement Cardiovascular: No edema, Normal pulses, Normal S1 S2, Other (Left femoral central line) Capillary refill: <2 Seconds Gastrointestinal: Normal bowel sounds, Non-distended Musculoskeletal: No clubbing, No swelling Integumentary: No rashes, No breakdown Neurological: Normal gait, Normal tone, Normal affect - Studies Laboratory Data (last 24 hrs) 10/09/23 10/09/23 10/09/23 01:45 01:45 01:45 WBC 7.10 Hgb 13.5 Hct 39.5 Plt Count 230 PT 16.3 H INR 1.48 APTT 23.9 L Sodium 133 L Potassium 2.8 L BUN 8 Creatinine 0.92 Glucose 132 H Total Bilirubin 0.6 AST 18 ALT 11 L Alkaline Phosphatase 225 H Lipase 9 L <Melba Arora - Last Filed: 10/09/23 05:01> Assessment and Plan - Problems (Diagnosis) (1) Sepsis Current Visit: Yes Status: Acute Qualifiers: Sepsis type: sepsis due to unspecified organism Severe sepsis shock status: without septic shock (2) Breast cancer Current Visit: Yes Status: Chronic Qualifiers: Patient sex: female (3) Brain cancer Current Visit: Yes Status: Chronic (4) Hypokalemia Current Visit: Yes Status: Acute (5) Type 1 diabetes mellitus with complication, 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 * Blood cultures, urine cultures ordered * Admitted patient, rehydration, antibiotics, analgesics, antiemetics * Monitoring electrolytes and replace as appropriate (2) Breast cancer (3) Brain cancer mets to right femur Current Visit: Yes Status: Chronic * Chronic, on treatment with the oncologist to Dr. Bethea * Continue to follow-up with Dr. Guzman * Discussed advance care planning with the spouse. He is open to the discussion but he would like to keep her full code at this time (4) Hypokalemia Current Visit: Yes Status: Acute * Initial labs shows potassium level of 2.8 * Potassium replacement started in the emergency room * Will repeat potassium and replace as per the protocol CODE STATUS Full code Diet Diabetic DVT prophylaxis Lovenox Discharge Plan: Home Plan to discharge in: 48 Hours - Advance Directives Does patient have a Living Will: No Does patient have a Durable POA for Healthcare: No - Code Status/Comfort Care Code Status Assessed: Yes (full code) Code Status: Full Code Physician Review: Patient Assessed, Agree with Above Assessment and Plan Critical Care: No Time Spent Managing Pts Care (In Minutes): 55 (minutes) <Melba Arora - Last Filed: 10/09/23 05:01> Date of Service: 10/09/23 Patient's chart has been reviewed. Patient was admitted for weakness and a what appears to be dehydration. Patient with no objective fever and no white blood cell count. Urinalysis had no bacteria seen. Chest x-ray with no infiltrates. Patient most likely does not have a bacterial infection. Procalcitonin level is pending. We will continue with aggressive hydration. Hopefully this helps patient's heart rate. Patient with advanced metastatic cancer. Patient will need outpatient oncology follow-up. Patient will need to discuss with oncology regarding prognosis with spread of metastatic disease. <Brian Mak - Last Filed: 10/09/23 04:52>
[2023-10-09 04:34] LABS: Renal Epithelial <5 /HPF (None Seen); Specific Gravity 1.018 (1.005-1.030); Urine Bacteria None Seen /HPF (<20); Urine Bilirubin NEGATIVE (Negative); Urine Blood Negative (Negative); Urine Clarity Extremely Turbid (Clear); Urine Color Yellow (Yellow); Urine Glucose 1+ (Negative); Urine Mucus 2+ /HPF (None Seen); Urine Protein TRACE (Negative); Urine RBC <5 /HPF (None Seen); Urine Urobilinogen 1+ (Normal); Urine pH 5.5 (5.0-7.0)
[2023-10-09] MEDS ORDERED: SODIUM CHLORIDE 0.9% 10ML INJ IV PRN (05:08)
[2023-10-09 06:07] LABS: Thyroid Stimulating Hormone 2.4 uIU/mL (0.358-3.740)
[2023-10-09 06:45] VITALS: BMI 35.6
[2023-10-09] MEDS ORDERED: INFLUENZA VACCINE (for 6+ mo) 0.5 ML DOSE IMVAC ONE (10:00)
[2023-10-09] MEDS: ENOXAPARIN 40 MG/0.4 ML SQ SCH (10:56)
[2023-10-09] MEDS: PANTOPRAZOLE 40 MG INJ IVP SCH (10:56)
--- NOTE | 2023-10-09 12:46 | P.PN ---
Subjective Date of Service: 10/09/23 Chief Complaint: Sepsis, Hypokalemia, weakness Subjective: No new changes Physical Examination - Vital Signs Temperature: 98.2 F Blood Pressure: 151/54 Pulse: 102 Respirations: 14 Pulse Ox (%): 93 - Physical Exam General: Confused HEENT: Atraumatic Neck: Supple Respiratory: Normal air movement Cardiovascular: Regular rate/rhythm, Normal S1 S2 Gastrointestinal: Soft and benign Musculoskeletal: No swelling Integumentary: No breakdown - Studies Laboratory Data (last 24 hrs) 10/09/23 10/09/23 10/09/23 01:45 01:45 01:45 WBC 7.10 Hgb 13.5 Hct 39.5 Plt Count 230 PT 16.3 H INR 1.48 APTT 23.9 L Sodium 133 L Potassium 2.8 L BUN 8 Creatinine 0.92 Glucose 132 H Total Bilirubin 0.6 AST 18 ALT 11 L Alkaline Phosphatase 225 H Lipase 9 L Microbiology Data (last 24 hrs): 10/09/23 03:11 Nasopharnyx Influenza Type A Antigen Screen - Final 10/09/23 03:11 Nasopharnyx Influenza Type B Antigen Screen - Final Assessment And Plan - Plan Sepsis: present on admission and deemed due to UTI. has been started on IV antibiotics and IV fluid. we will follow closely. UTI: UA is very concerning. Rocephin olea tiffanie continued. we will follow clinical course. Hypokalemia: we will replete her low potasisum, of 2.8. we will follow daily labs. Hyponatremia: Low sodium of 133 noted on labs. we will replete and follow levels. Disposition: pending finalization of urine and blood cultures. Discharge Plan: Home Physician Review: Patient Assessed, Agree with Above Assessment and Plan
--- NOTE | 2023-10-09 12:56 | RAD REPORT ---
EXAM DESCRIPTION: CT - Abdomen Pelvis Wo Contrast - 10/09/2023 6:31 am CLINICAL HISTORY: Female, 58 years old, ABD PAIN COMPARISON: CT chest/abdomen/pelvis 07/28/2023 (no report available) TECHNIQUE: CT acquisition of the abdomen and pelvis without contrast. Coronal and sagittal reformatt ed images provided. This exam was performed according to departmental dose-optimization program which includes automated exposure control, adjustment of the mA and/or kV according to patient size, and/o r use of iterative reconstruction technique. FINDINGS: SUPPORTIVE DEVICES: Boykin catheter in place. LOWER CHEST: Small right pleural effusion. Small pericardial effusion, with normal heart size and den se mitral annular calcification. Peripheral interstitial thickening in the lung bases. Redemonstratio n of several centrilobular nodules and tree-in-bud opacities in both lung bases. ABDOMEN AND PELVIS: Lack of intravenous contrast limits evaluation of the abdominal and pelvic viscera and vascular struc tures. Beam hardening from arms down positioning results in decreased [id number] and further pino its interpretation. Additionally, mild patient motion artifact in the upper to mid abdomen. Liver: Hypoattenuation along the falciform ligament compatible with focal fatty infiltration. Gallbladder and bile ducts: Greater than half of the gallbladder lumen is filled with calcified stone s. No evident biliary ductal dilation. Pancreas: Diffuse fatty infiltration. Spleen: Normal. Adrenal glands: Unremarkable. Kidneys and ureters: No evidence of stone or obstruction. Unchanged small fat density lesion of the r ight inferior renal pole, likely focal fat invagination. Bladder: Nondistended without evident abnormality. Reproductive organs: Unremarkable. GI tract: Normal caliber without wall thickening. No evidence of appendicitis. Lymph nodes: No obvious adenopathy. Peritoneum: No evidence of ascites, fluid collection, or free air. Abdominal wall: Small fat containing umbilical hernia. Vessels: Atherosclerosis without evidence of aneurysm. MUSCULOSKELETAL: No acute osseous abnormality. Multiple permeative/sclerotic lesions of the thoracolu mbar vertebrae are redemonstrated; a mixed lucent and sclerotic lesion of L2 has increased in size si nce the prior exam. More lytic involvement of a mixed density lesion involving the S1-S2 vertebrae. A dditionally, lytic lesions of the right iliac bone and superior acetabulum are new from the prior exa m. Partially imaged aggressive appearing lesion of the right seventh rib. IMPRESSION: 1. No acute abdominopelvic finding within the exam limitations. 2. Cholelithiasis without CT evidence of acute cholecystitis. 3. Progression of osseous metastatic disease since the comparison exam as detailed. 4. Small pericardial and right pleural effusions are new/increased from prior. Electronically signed by: Chaitanya Mendez MD 10/09/2023 12:21 AM [employer] Due to temporary technical issues with the PACS/Fluency reporting system, reports are being signed by the in house radiologist without review as a courtesy to ensure prompt reporting. The interpreting r adiologist is fully responsible for the content of the report.
[2023-10-09] MEDS: KCL 20 MEQ/100 mL IVPB 20 MEQ/100 ML BAG IV SCH ×2 (20:27→22:13)
[2023-10-09] MEDS: CEFTRIAXONE 1,000 MG in NA CHLORIDE 0.9% 50 ML IVPB SCH (20:34)
[2023-10-10] MEDS: HYDRALAZINE HCL 20 MG/ML VIAL IV PRN ×3 (01:45→20:20)
[2023-10-10] MEDS: MORPHINE 2 MG/ML SYR IV PRN (04:45)
[2023-10-10] MEDS: NA CHLORIDE 0.9% 1,000 ML IV SCH ×4 (04:46→20:20)
[2023-10-10] MEDS: ENOXAPARIN 40 MG/0.4 ML SQ SCH (07:52)
[2023-10-10] MEDS: PANTOPRAZOLE 40 MG INJ IVP SCH (07:53)
[2023-10-10 08:35] LABS: Magnesium 1.4 mg/dL (1.6-2.4); Potassium 3.6 mEq/L (3.5-5.1)
[2023-10-10] MEDS ORDERED: VANCOMYCIN 2 GM in NA CHLORIDE 0.9% 500 ML IVPB ONE (11:00)
[2023-10-10 14:48] LABS: Absolute Lymphocytes (CBC) 0.2 K/uL (0.7-4.9); Hematocrit 34.9 % (36.0-45.0); MCV 93.8 fL (80-100); Platelets 226 thou/uL (152-406); RBC Red Blood Cell Count 3.72 M/uL (3.86-4.86)
[2023-10-10 14:49] LABS: Protime INR 1.59
[2023-10-10 15:31] LABS: Blood Morphology Comment NOT SEEN (NOT SEEN); Platelet Estimate ADEQ
--- NOTE | 2023-10-10 16:51 | P.PN ---
Subjective Date of Service: 10/10/23 Chief Complaint: Sepsis, Hypokalemia, weakness Subjective: No new changes, Improving Physical Examination - Vital Signs Temperature: 99.1 F Blood Pressure: 163/71 Pulse: 123 Respirations: 16 Pulse Ox (%): 96 - Physical Exam General: In no apparent distress HEENT: Atraumatic, Normocephalic Neck: Supple Respiratory: Normal air movement Cardiovascular: Regular rate/rhythm, Normal S1 S2 Gastrointestinal: Soft and benign Musculoskeletal: No swelling Assessment And Plan - Plan Sepsis: present on admission and deemed due to UTI. she now has gram positive cocci growing on blood culture. vancomycin added to regimen till organism is identified. will consider ID consult. we will follow closely. UTI: UA is very concerning. Rocephin olea to be continued. we will follow clinical course. Hypokalemia: we will replete her potassium level. we will follow daily labs. Hyponatremia: Low sodium of 134 noted on labs. we will replete and follow levels. Disposition: pending finalization of urine and blood cultures. Physician Review: Patient Assessed, Agree with Above Assessment and Plan
[2023-10-10] MEDS: CEFTRIAXONE 1,000 MG in NA CHLORIDE 0.9% 50 ML IVPB SCH (20:19)
[2023-10-10] MEDS: VANCOMYCIN 1.5 GM in NA CHLORIDE 0.9% 500 ML IVPB SCH (23:18)
[2023-10-11 05:25] LABS: Absolute Lymphocytes (CBC) 0.3 K/uL (0.7-4.9); Hematocrit 34.5 % (36.0-45.0); Lymphocytes % 3.4 % (15.3-44.8); MCV 93.5 fL (80-100); MPV 8.1 fL (7.6-11.3); Platelets 212 thou/uL (152-406); RBC Red Blood Cell Count 3.69 M/uL (3.86-4.86)
[2023-10-11 05:49] LABS: Magnesium 1.4 mg/dL (1.6-2.4); Potassium 3.3 mEq/L (3.5-5.1)
[2023-10-11] MEDS: NA CHLORIDE 0.9% 1,000 ML IV SCH ×2 (06:37→14:29)
[2023-10-11] MEDS: ENOXAPARIN 40 MG/0.4 ML SQ SCH (09:07)
[2023-10-11] MEDS: PANTOPRAZOLE 40 MG INJ IVP SCH (09:07)
[2023-10-11] MEDS: VANCOMYCIN 1.5 GM in NA CHLORIDE 0.9% 500 ML IVPB SCH (11:24)
[2023-10-11] MEDS: HYDROCODONE/APAP 5/325 MG TAB PO PRN (13:03)
--- NOTE | 2023-10-11 14:43 | P.PN ---
Subjective Date of Service: 10/11/23 Chief Complaint: Sepsis, Hypokalemia, weakness Subjective: No new changes, Improving Physical Examination - Vital Signs Temperature: 97.4 F Blood Pressure: 134/75 Pulse: 111 Respirations: 20 Pulse Ox (%): 96 - Physical Exam General: Alert HEENT: Atraumatic, Normocephalic Neck: Supple Respiratory: Normal air movement Cardiovascular: Regular rate/rhythm, Normal S1 S2 Gastrointestinal: Soft and benign Musculoskeletal: No swelling Assessment And Plan - Plan Sepsis: present on admission and deemed due to UTI and now has bacteremia. she now has gram positive cocci growing on blood culture. Staph aureus identified. vancomycin added to regimen till organism is fully identified. we will follow closely. UTI: UA is very concerning but final urine culture is showing no growth. Rocephin dose to be continued till am. we will follow clinical course. Hypokalemia: Replete, we will follow her potassium level. we will follow daily labs. Hyponatremia: Resolved. repeat sodium level is now normal. noted on labs. we will follow daily levels. Disposition: Pending finalization of repeat blood cultures. Physician Review: Patient Assessed, Agree with Above Assessment and Plan
--- NOTE | 2023-10-11 16:58 | EKG ---
Test Date: 2023-10-08 Test Time: 22:46:55 Appeals Examiner: PAULINA MEASUREMENT RESULTS: Intervals: Rate: 116 CA: 140 QRSD: 78 QT: 346 QTc: 480 Voca: P: 27 CA: 140 QRS: 112 T: 29 INTERPRETIVE STATEMENTS: Sinus tachycardia Possible Left atrial enlargement Low voltage QRS Left posterior fascicular block Cannot rule out Anterior infarct, age undetermined Abnormal ECG Compared to ECG 07/28/2023 18:30:43 Left posterior fascicular block now present Sinus rhythm no longer present Right-axis deviation no longer present Myocardial infarct finding still present Electronically Signed On 10-11-23 16:52:43 [employer] by Freddie Louis
[2023-10-11] MEDS ORDERED: Magnesium Sulfate 2gm IVPB 2 G/50 ML BAG IV ONE (17:00)
[2023-10-11] MEDS: KCL 20 MEQ/100 mL IVPB 20 MEQ/100 ML BAG IV SCH ×2 (17:27→21:44)
[2023-10-11] MEDS: ENSURE MAX PROTEIN 330 ML LIQUID PO SCH (21:00)
[2023-10-11] MEDS: CEFTRIAXONE 1,000 MG in NA CHLORIDE 0.9% 50 ML IVPB SCH (23:27)
[2023-10-12] MEDS: VANCOMYCIN 1.5 GM in NA CHLORIDE 0.9% 500 ML IVPB SCH ×2 (01:19→11:57)
[2023-10-12] MEDS: NA CHLORIDE 0.9% 1,000 ML IV SCH ×2 (03:51→15:51)
[2023-10-12 06:04] LABS: Absolute Lymphocytes (CBC) 0.3 K/uL (0.7-4.9); Hematocrit 33.7 % (36.0-45.0); Lymphocytes % 4.3 % (15.3-44.8); MCV 93.6 fL (80-100); MPV 7.9 fL (7.6-11.3); Platelets 218 thou/uL (152-406)
[2023-10-12 06:14] LABS: Magnesium 1.7 mg/dL (1.6-2.4); Phosphorus 3.1 mg/dL (2.5-4.9); Potassium 3.8 mEq/L (3.5-5.1)
[2023-10-12] MEDS: ENOXAPARIN 40 MG/0.4 ML SQ SCH (07:55)
[2023-10-12] MEDS: PANTOPRAZOLE 40 MG INJ IVP SCH (07:55)
[2023-10-12] MEDS: ENSURE MAX PROTEIN 330 ML LIQUID PO SCH ×2 (07:56→20:13)
[2023-10-12] MEDS ORDERED: MAGNESIUM SULFATE 1 gm IVPB 1 GM/100 ML BAG IV ONE (08:00)
[2023-10-12] MEDS ORDERED: KCL 20 MEQ/100 mL IVPB 20 MEQ/100 ML BAG IV SCH (08:00)
[2023-10-12] MEDS: HYDROCODONE/APAP 5/325 MG TAB PO PRN ×2 (12:24→18:30)
--- NOTE | 2023-10-12 13:20 | P.PN ---
Subjective Date of Service: 10/15/23 Chief Complaint: Sepsis, Hypokalemia, weakness Subjective: No new changes, Improving Physical Examination - Vital Signs Temperature: 97.8 F Blood Pressure: 115/75 Pulse: 110 Respirations: 20 Pulse Ox (%): 95 - Physical Exam General: Alert HEENT: Atraumatic Neck: Supple Respiratory: Normal air movement Cardiovascular: Regular rate/rhythm, Normal S1 S2 Gastrointestinal: Soft and benign Musculoskeletal: No swelling Assessment And Plan - Plan Sepsis: present on admission. Final urine culture shows Staphylococcus haemolyticus. Vancomycin dose to be continued. Will discontinue ceftriaxone dose in AM. Will repeat blood cultures. we will follow closely. UTI: UA is very concerning but final urine culture is showing no growth. Rocephin dose to be discontinued. we will follow clinical course. Hypokalemia: Replete, we will follow her potassium level. we will follow daily labs. Hyponatremia: Resolved. repeat sodium level is now normal. noted on labs. we will follow daily levels. Disposition: Pending finalization of repeat blood cultures. Physician Review: Patient Assessed, Agree with Above Assessment and Plan
[2023-10-12] MEDS: CEFTRIAXONE 1,000 MG in NA CHLORIDE 0.9% 50 ML IVPB SCH (20:11)
[2023-10-12] MEDS: ALBUTEROL 2.5 MG/3 ML NEB SOL NEB PRN (20:42)
[2023-10-12] MEDS: VANCOMYCIN 1.25 GM in NA CHLORIDE 0.9% 250 ML IVPB SCH (23:05)
[2023-10-13] MEDS: HYDROCODONE/APAP 5/325 MG TAB PO PRN ×3 (04:19→20:22)
[2023-10-13] MEDS: NA CHLORIDE 0.9% 1,000 ML IV SCH ×2 (04:19→14:00)
--- NOTE | 2023-10-13 08:21 | P.CNS ---
Date of Consult: 10/13/23 Reason for Consult: bacteremia Chief Complaint: Sepsis, Hypokalemia, weakness History of Present Illness: Patient is a 58-year-old female with a past medical history of breast cancer, brain cancer on radiation, type 1 diabetes mellitus, hypertension who presented to the ED with complaints of generalized weakness and altered mental status. Patient was admitted for sepsis. Blood cultures growing Staphylococcus hemolyticus in 3 of 4 bottles. Infectious disease was consulted. Allergies diphenhydramine [From Benadryl] Allergy (Verified 10/09/23 20:40) AGITATION/JUMPY Home medications list reviewed: Yes Home Medications: Gabapentin [Neurontin] 100 mg PO BID 10/20/15 Atorvastatin Calcium 40 mg PO BEDTIME 10/10/23 Cyanocobalamin (Vitamin B-12) [Vitamin B-12] 1,000 mcg PO DAILY 10/10/23 Furosemide 40 mg PO DAILY 10/10/23 Hydrocodone Bit/Acetaminophen [Hydrocodon-Acetaminophen 5-325] 1 tab PO Q4H PRN 10/10/23 Insulin Glargine,Hum.rec.anlog [Basaglar Kwikpen U-100] 35 unit SQ DAILYPRN PRN 10/10/23 Insulin Lispro [Humalog] See Rx Instructions .ROUTE .COMPLEX 10/10/23 Losartan Potassium 25 mg PO DAILY 10/10/23 OLANZapine [Olanzapine] 5 mg PO DAILY 10/10/23 Pantoprazole [Protonix Tab*] 40 mg PO DAILY 10/10/23 Sennosides/Docusate Sodium [Senokot-S Tablet] 1 tab PO PRN PRN 10/10/23 Venlafaxine HCl [Effexor XR] 150 mg PO DAILY 10/10/23 - Past Medical/Surgical History Diabetic: Yes -: Breast cancer, -: Brain cancer on radiation -: Type 1 diabetes on insulin pump -: HTN -: Bone cancer -: C-sections x2 -: retna surgery -: double mastectomies with lymph node removal to L side -: two heart stents - Family History Father Medical History: Lung disease, Cancer Notes: Lung cancer Mother Medical History: Diabetes - Social History Alcohol use: Yes CD- Drugs: No Caffeine use: Yes Place of Residence: Home Review of Systems General: Weakness Physical Examination Temp Pulse Resp BP Pulse Ox 98.1 F 18 L 18 136/70 94 10/13/23 04:00 10/13/23 04:00 10/13/23 04:19 10/13/23 04:00 10/13/23 04:19 General: Oriented x1, Mild distress HEENT: Atraumatic Respiratory: Expiratory wheezes, Other (mildly labored respirations) Cardiovascular: Edema (trace BLE edema), Irregular heart rate/rhythm (tachycardic) Gastrointestinal: Normal bowel sounds, Soft and benign Integumentary: No rashes, Other (isulin pump ) Laboratory data reviewed Microbiology data reviewed Imagings Data: Reviewed Conclusions/Impression: Problem list Sepsis Bacteremia Breast cancer Brain cancer on radiation Hypertension Diabetes mellitus type 1 Staphylococcus haemolyticus bacteremia -Blood cultures 10/09: Staphylococcus hemolyticus in 3 of 4 bottles -Susceptible to vancomycin -Currently on vancomycin (started 10/10) and Ceftriaxone (started 10/09) -Repeat blood cultures 10/12: Pending - Unclear source. Urinalysis suggestive of UTI however urine culture with no growth Negative influenza A&B Negative COVID - CT abdomen pelvis 10/09: "1. No acute abdominopelvic finding within the exam limitations. 2. Cholelithiasis without CT evidence of acute cholecystitis. 3. Progression of osseous metastatic disease since the comparison exam as detailed. 4. Small pericardial and right pleural effusions are new/increased from prior." - XR Chest 10/08: "Right peritracheal stripe fullness is present likely represe nting lymphadenopathy. No lung infiltrate is suspected. The heart is upper limit normal in size. Sclerotic lesion noted proximal right humerus likely metastatic." Recommendations Bacteremia, staph haemolyticus: sensitive to only Vancomycin. -Due to patient having metastatic cancer on radiation, recommend continuing treatment with vancomycin IV for 14 days (10/10-10/23) - Discontinue Rocephin -Monitor WBC and fever trends -Supportive care -Follow-up with oncology as outpatient Plan of care discussed with family at bedside. Case discussed with Adalberto Dumont
[2023-10-13] MEDS: ENSURE MAX PROTEIN 330 ML LIQUID PO SCH ×2 (09:00→20:23)
[2023-10-13] MEDS: ENOXAPARIN 40 MG/0.4 ML SQ SCH (10:04)
[2023-10-13] MEDS: PANTOPRAZOLE 40 MG INJ IVP SCH (10:04)
[2023-10-13] MEDS: ALBUTEROL 2.5 MG/3 ML NEB SOL NEB PRN (10:13)
[2023-10-13] MEDS: VANCOMYCIN 1.25 GM in NA CHLORIDE 0.9% 250 ML IVPB SCH (11:00)
[2023-10-13 11:05] LABS: Magnesium 1.8 mg/dL (1.6-2.4); Potassium 3.4 mEq/L (3.5-5.1)
[2023-10-13] MEDS: KCL 20 MEQ/100 mL IVPB 20 MEQ/100 ML BAG IV SCH ×2 (12:12→13:56)
[2023-10-13] MEDS ORDERED: NA CHLORIDE 0.9% 1,000 ML IV SCH (15:51)
[2023-10-13] MEDS ORDERED: MAGNESIUM SULFATE 1 gm IVPB 1 GM/100 ML BAG IV ONE (16:00)
--- NOTE | 2023-10-13 16:00 | P.PN ---
Subjective Date of Service: 10/14/23 Chief Complaint: Sepsis, Hypokalemia, weakness Physical Examination - Vital Signs Temperature: 98.3 F Blood Pressure: 126/59 Pulse: 121 Respirations: 20 Pulse Ox (%): 98 - Studies Microbiology Data (last 24 hrs): 10/09/23 01:45 Blood - Blood Aerobic Blood Culture - Final Staphylococcus Haemolyticus 10/09/23 01:45 Blood - Blood Blood Culture Gram Stain - Final 10/09/23 01:45 Blood - Blood Anaerobic Blood Culture - Final Staphylococcus Haemolyticus 10/09/23 01:45 Blood - Blood Gram Stain - Final Assessment And Plan - Plan Sepsis: present on admission. Final blood culture shows Staphylococcus hemolyticus. Vancomycin dose to be continued. Repeat blood cultures has no growth till date. we will follow closely. UTI: UA is very concerning but final urine culture is showing no growth. we will follow clinical course. Hypokalemia: Replete, we will follow her potassium level. we will follow daily labs. Hyponatremia: Resolved. repeat sodium level is now normal.. we will follow daily levels. Disposition: Pending finalization of repeat blood cultures. Physician Review: Patient Assessed, Agree with Above Assessment and Plan
[2023-10-13] MEDS: VANCOMYCIN 1 GM in NA CHLORIDE 0.9% 250 ML IVPB SCH (20:22)
[2023-10-13] MEDS: MORPHINE 2 MG/ML SYR IV PRN (21:10)
[2023-10-13] MEDS ORDERED: ALBUTEROL 2.5 MG/3 ML NEB SOL NEB PRN (21:11)
[2023-10-13] MEDS: LEVALBUTEROL 1.25 MG/3 ML NEB NEB SCH (21:20)
[2023-10-13] MEDS ORDERED: LEVALBUTEROL 1.25 MG/3 ML NEB ONE (21:37)
--- NOTE | 2023-10-13 22:26 | RAD REPORT ---
EXAM DESCRIPTION: Mic Single View10/13/2023 9:43 pm CLINICAL HISTORY: Tachycardia COMPARISON: October 08, 2023 FINDINGS: Multiple, bilateral pulmonary nodules. Mediastinal lymphadenopathy again demonstrated. Mild worsening in bilateral interstitial lung opacities. Small pleural effusions IMPRESSION: Multiple, bilateral pulmonary nodules likely metastases. Mediastinal lymphadenopathy Mild bilateral interstitial lung opacities
--- NOTE | 2023-10-13 22:28 | P.PN ---
Date of Service: 10/13/23 RN requested to speak to the family member as she would like to know more about the plan of care Discussed with the patient's family member, explained the plan of care with the patient, she voiced understanding. She had concern about IV fluid, having shortness of breath on and off and puffy hands. Patient seen and assessed, patient is mildly tachypneic, SPO2 97% on room air, not in distress Expiratory wheezes bilateral on auscultation. Bronchodilators ordered, chest x- ray ordered . IV fluid at this time. Monitor intake and output, encourage patient to drink fluids by mouth. All the questions answered explained reason for the treatments. We will continue to monitor the patient closely. Discussed with the registered nurse and the respiratory therapist.
[2023-10-13] MEDS: LORAZEPAM 0.5 MG TABLET PO ONE ×2 (22:46→22:56)
[2023-10-14] MEDS ORDERED: ALBUTEROL 2.5 MG/3 ML NEB SOL NEB SCH ×2 (02:00)
[2023-10-14] MEDS ORDERED: IPRATROPIUM BROM 0.5MG/2.5ML NEB SCH (02:00)
[2023-10-14] MEDS ORDERED: LEVALBUTEROL 1.25 MG/3 ML NEB NEB PRN (02:15)
[2023-10-14] MEDS: MORPHINE 2 MG/ML SYR IV PRN ×3 (03:17→18:03)
[2023-10-14 03:53] LABS: Magnesium 1.6 mg/dL (1.6-2.4); Potassium 3.1 mEq/L (3.5-5.1)
[2023-10-14] MEDS ORDERED: MAGNESIUM SULFATE 1 gm IVPB 1 GM/100 ML BAG IV ONE (05:45)
[2023-10-14] MEDS: KCL 20 MEQ/100 mL IVPB 20 MEQ/100 ML BAG IV SCH ×2 (05:55→08:19)
[2023-10-14] MEDS: ENOXAPARIN 40 MG/0.4 ML SQ SCH (08:21)
[2023-10-14] MEDS: ENSURE MAX PROTEIN 330 ML LIQUID PO SCH ×2 (08:22→20:37)
[2023-10-14] MEDS: PANTOPRAZOLE 40 MG INJ IVP SCH (08:23)
[2023-10-14] MEDS: LEVALBUTEROL 1.25 MG/3 ML NEB NEB SCH ×3 (08:28→20:00)
[2023-10-14] MEDS: VANCOMYCIN 1 GM in NA CHLORIDE 0.9% 250 ML IVPB SCH ×2 (10:22→20:37)
--- NOTE | 2023-10-14 13:12 | P.PN ---
Subjective Date of Service: 10/15/23 Chief Complaint: Sepsis, Hypokalemia, weakness Subjective: No new changes Physical Examination - Vital Signs Temperature: 98.3 F Blood Pressure: 126/59 Pulse: 121 Respirations: 20 Pulse Ox (%): 98 - Physical Exam General: Alert HEENT: Atraumatic Neck: Supple Respiratory: Normal air movement Cardiovascular: Regular rate/rhythm, Normal S1 S2 Gastrointestinal: Soft and benign - Studies Microbiology Data (last 24 hrs): 10/09/23 02:00 Blood - Blood Aerobic Blood Culture - Final No growth in 5 days. Assessment And Plan - Plan Sepsis: present on admission. Final blood culture shows Staphylococcus haemolyticus. Vancomycin dose to be continued for 14 days. Repeat blood cultures has no growth till date. we will follow closely. UTI: UA is very concerning but final urine culture is showing no growth. we will follow clinical course. Hypokalemia: Replete, we will follow her potassium level. we will follow daily labs. Hyponatremia: Resolved. repeat sodium level is now normal.. we will follow daily levels. Disposition: Pending finalization of repeat blood cultures. Physician Review: Patient Assessed, Agree with Above Assessment and Plan
[2023-10-15] MEDS: MORPHINE 2 MG/ML SYR IV PRN ×3 (00:04→19:30)
[2023-10-15] MEDS: LEVALBUTEROL 1.25 MG/3 ML NEB NEB SCH ×5 (01:45→22:18)
[2023-10-15 06:14] LABS: Bicarbonate 22 mEq/L (21-32); Glomerular Filtration Rate 106 ml/min (=/>90); Glucose Level 117 mg/dL (74-106); Magnesium 1.8 mg/dL (1.6-2.4); Potassium 3.9 mEq/L (3.5-5.1); Sodium Level 138 mEq/L (136-145)
[2023-10-15 06:21] LABS: BUN Blood Urea Nitrogen < 3 mg/dL (7-18)
[2023-10-15] MEDS ORDERED: MAGNESIUM SULFATE 1 gm IVPB 1 GM/100 ML BAG IV ONE (06:30)
[2023-10-15] MEDS ORDERED: NA CHLORIDE 0.9% 1,000 ML ONE (07:33)
[2023-10-15] MEDS ORDERED: KCL 20 MEQ/100 mL IVPB 20 MEQ/100 ML BAG IV SCH (08:00)
[2023-10-15] MEDS: ENOXAPARIN 40 MG/0.4 ML SQ SCH (09:00)
[2023-10-15] MEDS: ENSURE MAX PROTEIN 330 ML LIQUID PO SCH ×2 (09:00→20:25)
[2023-10-15] MEDS: PANTOPRAZOLE 40 MG INJ IVP SCH (09:00)
--- NOTE | 2023-10-15 09:55 | P.PN ---
Subjective Date of Service: 10/15/23 Chief Complaint: Sepsis, Hypokalemia, weakness Subjective: No new changes Physical Examination - Vital Signs Temperature: 98.1 F Blood Pressure: 167/82 Pulse: 120 Respirations: 18 Pulse Ox (%): 92 - Physical Exam General: Alert HEENT: Atraumatic Neck: Supple Respiratory: Normal air movement Cardiovascular: Regular rate/rhythm, Normal S1 S2 Gastrointestinal: Soft and benign Musculoskeletal: No swelling - Studies Microbiology Data (last 24 hrs): 10/09/23 02:00 Blood - Blood Aerobic Blood Culture - Final No growth in 5 days. Assessment And Plan - Plan Sepsis: present on admission. Final blood culture shows Staphylococcus hemolyticus. Vancomycin dose to be continued. Repeat blood cultures has no growth till date. we will follow closely. UTI: UA is very concerning but final urine culture is showing no growth. we will follow clinical course. Hypokalemia: Replete, we will follow her potassium level. we will follow daily labs. Hyponatremia: Resolved. repeat sodium level is now normal.. we will follow daily levels. Disposition: Pending finalization of repeat blood cultures. Physician Review: Patient Assessed, Agree with Above Assessment and Plan
[2023-10-15] MEDS: VANCOMYCIN 1 GM in NA CHLORIDE 0.9% 250 ML IVPB SCH ×2 (09:56→20:17)
[2023-10-15] MEDS: HYDRALAZINE HCL 20 MG/ML VIAL IV PRN (20:23)
[2023-10-15 22:06] VITALS: TEMP 98.2
[2023-10-15 23:48] VITALS: O2SAT 96
[2023-10-16] MEDS: MORPHINE 2 MG/ML SYR IV PRN ×2 (00:41→06:16)
[2023-10-16] MEDS: LEVALBUTEROL 1.25 MG/3 ML NEB NEB SCH (02:02)
[2023-10-16 06:12] LABS: Magnesium 1.8 mg/dL (1.6-2.4); Potassium 3.8 mEq/L (3.5-5.1)
[2023-10-16] MEDS: HYDRALAZINE HCL 20 MG/ML VIAL IV PRN (06:16)
[2023-10-16 06:20] VITALS: BP 196/99
--- NOTE | 2023-10-16 06:32 | P.PN ---
Date of Service: 10/16/23 Subjective: Physical Exam: Vitals: reviewed GEN: Alert, oriented, NAD HEENT: Normal conjunctiva, sclera anicteric CV: Regular rate & rhythm, no edema Pulm: Nonlabored respiraitons, clear bilaterally ABD: Soft, nontender, nondistended MSK: No joint tenderness Integumentary: No rashes Neuro: Normal speech, normal affect Problem List: Sepsis likely secondary to UTI Staphlyococcus Haemolyticus bacteremia Hypokalemia, resolved Hyponatremia, resolved Plan: Blood cx (10/09): Staphylococcus hemolyticus repeat blood cx (10/12): NGTD urine cx without growth Continue vancomycin Follow cultures Daily labs. Monitor electrolytes, replete as needed Confirm home medications, restart as appropriate PRN pain medication
--- NOTE | 2023-10-16 09:44 | P.DS ---
Discharge Date: 10/16/23 Disposition: Discharge Condition: Reason for Admission: Sepsis, Hypokalemia, weakness Brief History of Present Illness: Ms. Mitesh Parrish is a 58-year-old female with a history of brain cancer, breast cancer, type 1 diabetes on insulin pump, hypertension presented to the ER via wheelchair with complaints of decreased appetite, generalized weakness, altered mental status. Patient reports that of decreased appetite, generalized weakness as well as confusion. Patient has history of metastatic breast cancer, brain cancer had radiation therapy recently for mets to right femur. Patient reports mild fever at home with chills not measured. Patient also reports some known specific abdominal pain, nausea and vomiting. Patient denies chest pain, shortness of breath, or palpitation. ED course Patient is alert and oriented now, patient's spouse and family member in the room helping with the history. Blood pressure 198/91, pulse 125, respiration 21, temperature 98.4, pulse ox 100% on room air. Patient came to ER due to concern of progression of generalized weakness as well as nausea, decreased oral intake. Examination remarkable for tachycardia. Sinus tachycardia heart rate of 116, no acute ST segment elevation no concerning intervals. There has been significant delay obtaining IV access, left femoral central line inserted by the emergency physician. Chest x-ray shows lymphadenopathy c onsistent with the patient's known metastatic cancer, CT abdomen pelvis shows no acute intra-abdominal process though shows progression of metastatic disease. Patient with a cholelithiasis noted without evidence of cholecystitis. CBC is normal, metabolic profile shows hypokalemia with a potassium of 2.8, GFR of 72. Lab lactic acid within normal range. Admitting the patient with the diagnosis of sepsis unspecified organism, hypokalemia, weakness. Hospital Course: Patient had metastatic breast cancer. Patient continued to do poorly. Patient also was septic as patient had interstitial opacities on the chest x-ray and blood cultures were positive for staph hemolyticus. Family had decided to proceed with a do not attempt resuscitation. Patient at 7:05 in the morning with family at bedside. Patient's body was released to [facility] home. Home Medications: Gabapentin [Neurontin] 100 mg PO BID 10/20/15 Atorvastatin Calcium 40 mg PO BEDTIME 10/10/23 Cyanocobalamin (Vitamin B-12) [Vitamin B-12] 1,000 mcg PO DAILY 10/10/23 Furosemide 40 mg PO DAILY 10/10/23 Hydrocodone Bit/Acetaminophen [Hydrocodon-Acetaminophen 5-325] 1 tab PO Q4H PRN 10/10/23 Insulin Glargine,Hum.rec.anlog [Basaglar Kwikpen U-100] 35 unit SQ DAILYPRN PRN 10/10/23 Insulin Lispro [Humalog] See Rx Instructions .ROUTE .COMPLEX 10/10/23 Losartan Potassium 25 mg PO DAILY 10/10/23 OLANZapine [Olanzapine] 5 mg PO DAILY 10/10/23 Pantoprazole [Protonix Tab*] 40 mg PO DAILY 10/10/23 Sennosides/Docusate Sodium [Senokot-S Tablet] 1 tab PO PRN PRN 10/10/23 Venlafaxine HCl [Effexor XR] 150 mg PO DAILY 10/10/23 Physician Discharge Instructions: Patient at 7:05 from septic shock Time spent managing pt's care (in minutes): 35
== END 2023-10-16 10:00 | disposition expired | DRG 872 ==
LOC: ER 20:15 → 2ND 10-09 03:46
PROVIDERS: ADMIT Hospitalist; ATTEND Hospitalist
PROC: 05HY33Z Insertion of Infusion Device into Upper Vein, Percutaneous Approach (ICD-10-PCS; principal; 2023-10-09)
DX: A41.01 Sepsis due to Methicillin susceptible Staphylococcus aureus (principal); C79.51 Secondary malignant neoplasm of bone; N39.0 Urinary tract infection, site not specified; C71.9 Malignant neoplasm of brain, unspecified; E87.1 Hypo-osmolality and hyponatremia; E86.0 Dehydration; E87.6 Hypokalemia; E10.9 Type 1 diabetes mellitus without complications; I10 Essential (primary) hypertension; K80.20 Calculus of gallbladder without cholecystitis without obstruction; R59.1 Generalized enlarged lymph nodes; R65.20 Severe sepsis without septic shock; Z66 Do not resuscitate; Z95.5 Presence of coronary angioplasty implant and graft; Z79.4 Long term (current) use of insulin; Z85.3 Personal history of malignant neoplasm of breast; Z88.8 Allergy status to other drugs, medicaments and biological substances; Z96.41 Presence of insulin pump (external) (internal); Z90.13 Acquired absence of bilateral breasts and nipples; Z11.52 Encounter for screening for COVID-19; Z79.899 Other long term (current) drug therapy
CPT/HCPCS: 36415; 51702; 71045; 74176; 80048; 80053; 80202; 81001; 82947; 83605; 83690; 83735; 84100; 84132; 84145; 84439; 84443; 85025; 85610; 85730; 87040; 87077; 87086; 87088; 87186; 87205; 87635; 87804; 93005; 94640; 96361; 96365; 96367; 96372; 96375; 99285; C9113; J0360; J0696; J1650; J2270; J2405; J3360; J3475; J3480; J7030; J7040; J7050; J7613; J7614